=== PATIENT | male | born 1935 | race Caucasian/White ===

== ENCOUNTER 2017-01-25 15:31 | Observation (INO) | payer MEDICARE, BC ==
[2017-01-25] MEDS ORDERED: Ondansetron 4 MG/2 ML SDV IVPUSH PRN (17:29)
[2017-01-25] MEDS ORDERED: Furosemide 40 MG/4 ML VIAL IV SCH (18:00)
[2017-01-25] MEDS ORDERED: Nitroglycerin 0.4 MG Tab.SL SL PRN (18:00)
--- NOTE | 2017-01-25 18:10 | PCM.HP ---
H&P History of Present Illness - General Date of Service: 01/25/17 Admit Problem/Dx: Admission Diagnosis/Problem Admission Diagnosis/Problem Anemia of chronic renal failure Source of Information: Patient History Limitations: Reports: No Limitations - History of Present Illness Initial Comments - Free Text/Narative: Patient seen in clinic with generalized weakness states has been weak for the last month has been seen in [facility] clinic stable today seen in our clinic noticed chronic renal failure acute anemia probably secondary to chronic renal failure generalized weakness will admit for transfusion and evaluation Onset of Symptoms: Reports: Gradual Duration of Symptoms: Reports: Chronic, Getting Worse Location: Reports: Generalized Severity: Moderate Improves with: Reports: None Worsens with: Reports: None Context: Reports: Sick Contact Associated Symptoms: Reports: Chest Pain, Fever/Chills, Nausea/Vomiting - Related Data Allergies/Adverse Reactions: Allergies Allergy/AdvReac Type Severity Reaction Status Date / Time No Known Allergies Allergy Verified 06/09/15 17:53 Home Medications: Home Meds Allopurinol [Zyloprim] 200 mg PO DAILY 04/25/15 [History] Aspirin [Halfprin] 81 mg PO DAILY 04/25/15 [History] Folic Acid 1 mg PO DAILY 04/25/15 [History] Torsemide 20 mg PO DAILY 04/25/15 [History] Warfarin Sodium [Jantoven] 5 mg PO DAILY 04/25/15 [History] Levothyroxine 75 mcg PO ACBREAKFAST #30 tablet 06/11/15 [Rx] Insulin Detemir [Levemir] 50 unit SUBCUT Q12HR 10/16/15 [History] Cholecalciferol (Vitamin D3) [Vitamin D3] 2,000 unit PO DAILY 01/25/17 [History] Insulin Aspart [Novolog Flexpen] 12 units SUBCUT BID 01/25/17 [History] Metoprolol Succinate [Toprol XL] 100 mg PO DAILY 01/25/17 [History] Nitroglycerin [Nitrostat] 0.4 mg SL ASDIRECTED 01/25/17 [History] Ticagrelor [Brilinta] 60 mg PO BID 01/25/17 [History] Past Medical History - Past Health History Medical/Surgical History: Denies Medical/Surgical History (Hypothyroidism insulin-dependent diabetes) HEENT History: Reports: Hard of Hearing Cardiovascular History: Reports: Afib Respiratory History: Reports: None Gastrointestinal History: Reports: None Musculoskeletal History: Reports: Back Pain, Chronic Other Musculoskeletal History: Hx of broken collar bone Neurological History: Reports: None Psychiatric History: Reports: None Endocrine/Metabolic History: Reports: Diabetes, Type II, Hypothyroidism, IDDM Hematologic History: Reports: Anticoagulation Therapy Immunologic History: Reports: None Dermatologic History: Reports: None - Infectious Disease History Infectious Disease History: Reports: None Social & Family History - Tobacco Use Smoking Status *Q: Former Smoker Years of Tobacco use: 10 Used Tobacco, but Quit: Yes Month Tobacco Last Used: 2000 Second Hand Smoke Exposure: No - Alcohol Use Days Per Week of Alcohol Use: 1 Number of Drinks Per Day: 1 Total Drinks Per Week: 1 - Recreational Drug Use Recreational Drug Use: No Drug Use in Last 12 Months: No - Living Situation & Occupation Living situation: Reports: , with Family Occupation: Retired H&P Review of Systems - Review of Systems: Review Of Systems: See Below General: Reports: Chills, Weakness, Fatigue HEENT: Reports: Other (Dried ice) Pulmonary: Reports: Shortness of Breath, Wheezing, Cough Cardiovascular: Reports: Chest Pain Gastrointestinal: Reports: No Symptoms Genitourinary: Reports: No Symptoms Musculoskeletal: Reports: No Symptoms Skin: Reports: No Symptoms Neurological: Reports: No Symptoms Hematologic/Lymphatic: Reports: Anemia Exam - Exam Exam: See Below - Vital Signs Weight: 207 lb 12.8 oz - Exam General: Alert, Oriented, Cooperative HEENT: EACs Clear, EOMI, Mucosa Moist & [place], Pupils Equal, Pupils Reactive, TMs Clear, Glasses, PERRLA Neck: Supple, Trachea Midline Lungs: Clear to Auscultation Cardiovascular: Regular Rate, Regular Rhythm Abdomen: Normal Bowel Sounds, Soft, Hernia, Mass, Other (Ventral hernia) (Male) Exam: Deferred Rectal (Males) Exam: Deferred Back Exam: Normal Inspection, Full Range of Motion, NT Extremities: Edema Skin: Warm, Dry, Intact Neurological: Cranial Nerves Intact, Reflexes Equal Bilateral Psychiatric: Alert, Normal Affect, Normal Mood - Patient Data Lab Results Last 24 hrs: Laboratory Results - last 24 hr 01/25/17 01/25/17 01/25/17 Range/Units 16:40 16:40 16:40 WBC 8.8 (4.0-10.2) K/uL RBC 2.89 L (4.33-5.41) M/uL Hgb 7.3 L* D (13.1-16.8) g/dL Hct 23.6 L* (39.0-49.0) % MCV 81.7 L D (84.0-98.0) fL MCH 25.3 L (28.2-33.3) pg MCHC 30.9 L (31.7-36.0) g/dL RDW 15.7 H (11.2-14.1) % Plt Count 166 (150-350) K/uL Neut % (Auto) 70.3 (45.0-80.0) % Lymph % (Auto) 12.2 (10.0-50.0) % [place] % (Auto) 10.3 (2.0-14.0) % Eos % (Auto) 6.5 H (0.0-5.0) % Baso % (Auto) 0.7 (0.0-2.0) % Neut # (Auto) 6.21 (1.40-7.00) K/uL Lymph # (Auto) 1.08 (0.50-3.50) K/uL [place] # (Auto) 0.91 (0.00-1.00) K/uL Eos # (Auto) 0.57 H (0.00-0.50) K/uL Baso # (Auto) 0.06 (0.00-0.20) K/uL Hemoglobin A1c 10.7 H (4.3-5.7) % Iron (50-175) ug/dL TIBC (250-450) ug/dL % Saturation Ferritin (8-388) ng/mL Vitamin B12 669 (193-986) pg/mL Folate 24.2 (8.6-58.9) ng/mL 01/25/17 Range/Units 16:40 WBC (4.0-10.2) K/uL RBC (4.33-5.41) M/uL Hgb (13.1-16.8) g/dL Hct (39.0-49.0) % MCV (84.0-98.0) fL MCH (28.2-33.3) pg MCHC (31.7-36.0) g/dL RDW (11.2-14.1) % Plt Count (150-350) K/uL Neut % (Auto) (45.0-80.0) % Lymph % (Auto) (10.0-50.0) % [place] % (Auto) (2.0-14.0) % Eos % (Auto) (0.0-5.0) % Baso % (Auto) (0.0-2.0) % Neut # (Auto) (1.40-7.00) K/uL Lymph # (Auto) (0.50-3.50) K/uL [place] # (Auto) (0.00-1.00) K/uL Eos # (Auto) (0.00-0.50) K/uL Baso # (Auto) (0.00-0.20) K/uL Hemoglobin A1c (4.3-5.7) % Iron 26 L (50-175) ug/dL TIBC 329 (250-450) ug/dL % Saturation 7.13636 Ferritin 40 (8-388) ng/mL Vitamin B12 (193-986) pg/mL Folate (8.6-58.9) ng/mL Result Diagrams: 01/25/17 16:40 *Q Meaningful Use (ADM) - VTE *Q VTE Criteria *Q: VTE Anticoagulation Contraindications: Medical/procedure contrai - Stroke *Q Stroke Criteria *Q: - AMI *Q AMI Criteria *Q: - Problem List (1) Chronic renal disease, stage 4, severely decreased glomerular filtration rate (GFR) between 15-29 mL/min/1.73 square meter SNOMED Code(s): 144282938 ICD Code: N18.4 - CHRONIC KIDNEY DISEASE, STAGE 4 (SEVERE) Status: Acute Priority: High Current Visit: Yes Problem List Initiated/Reviewed/Updated: Yes Orders Last 24hrs: Active Orders 24 hr Category Date Time Status Patient Status [ADT] Routine ADT 01/25/17 17:29 Ordered Ambulate [RC] ASDIRECTED Care 01/25/17 17:29 Ordered Antiembolic Devices [RC] PER UNIT ROUTINE Care 01/25/17 17:46 Ordered Bedrest Bathroom Privileges [RC] ASDIRECTED Care 01/25/17 17:29 Ordered Blood Glucose Check, Bedside [RC] QIDACANDBED Care 01/25/17 17:29 Ordered EKG Documentation Completion [RC] ASDIRECTED Care 01/25/17 17:51 Ordered Intake and Output [RC] QSHIFT Care 01/25/17 17:40 Ordered May Shower [RC] ASDIRECTED Care 01/25/17 17:29 Ordered Oxygen Therapy [RC] PRN Care 01/25/17 17:29 Ordered Up With Assistance [RC] ASDIRECTED Care 01/25/17 17:29 Ordered Up to Chair [RC] ASDIRECTED Care 01/25/17 17:29 Ordered VTE/DVT Education [RC] PER UNIT ROUTINE Care 01/25/17 17:29 Ordered Vital Signs [RC] Q4H Care 01/25/17 17:29 Ordered PT Evaluation and Treatment [CONS] Routine Cons 01/25/17 17:29 Ordered [employer] Diet [DIET] Diet 01/25/17 Dinner Ordered Chest 2V [CR] Routine Exams 01/25/17 Taken BASIC METABOLIC PANEL,BMP [CHEM] AM Lab 01/26/17 05:11 Ordered CBC WITH AUTO DIFF [HEME] AM Lab 01/26/17 05:11 Ordered CBC WITH AUTO DIFF [HEME] Routine Lab 01/25/17 17:53 Ordered RED BLOOD CELLS LP [BBK] Routine Lab 01/25/17 17:52 Ordered TSH ULTRASENSITIVE [CHEM] Routine Lab 01/26/17 05:11 Ordered URIC ACID [CHEM] Routine Lab 01/26/17 05:11 Ordered Allopurinol [Zyloprim] Med 01/26/17 08:00 Ordered 200 mg PO DAILY Aspirin [Halfprin] Med 01/26/17 08:00 Ordered 81 mg PO DAILY Cholecalciferol (Vitamin D3) [Vitamin D3] Med 01/26/17 08:00 Ordered 2,000 unit PO DAILY Folic Acid Med 01/26/17 08:00 Ordered 1 mg PO DAILY Furosemide [Lasix] Med 01/25/17 18:00 Ordered 40 mg IV ASDIRECTED Insulin Aspart [NovoLOG] Med 01/25/17 18:00 Ordered 12 unit SUBCUT BID Insulin Detemir [Levemir] Med 01/25/17 20:00 Ordered 50 unit SUBCUT Q12HR Levothyroxine Med 01/26/17 07:30 Ordered 75 mcg PO ACBREAKFAST Metoprolol Succinate [Toprol XL] Med 01/26/17 08:00 Ordered 100 mg PO DAILY Nitroglycerin [Nitrostat] Med 01/25/17 18:00 Ordered 0.4 mg SL ASDIRECTED Ondansetron [Zofran] Med 01/25/17 17:29 Ordered 4 mg IVPUSH Q4H PRN Pantoprazole [ProTONIX IV] Med 01/25/17 17:30 Ordered 40 mg IV DAILY Sodium Chloride 0.9% [Normal Saline] 250 ml Med 01/25/17 18:00 Ordered IV ASDIRECTED Sodium Chloride 0.9% [Saline Flush] Med 01/25/17 17:29 Ordered 10 ml FLUSH ASDIRECTED PRN Torsemide [Torsemide] Med 01/26/17 08:00 Ordered 20 mg PO DAILY Anticoagulation Contraindications VTE [AST] Per Unit Oth 01/25/17 17:29 Ordered Routine Antiembolic Hose [OM.PC] Per Unit Routine Oth 01/25/17 17:41 Ordered Saline Lock Insert [OM.PC] Routine Oth 01/25/17 17:29 Ordered Transfuse PRBC [Transfuse Red Blood Cells] [COMM] Oth 01/25/17 17:53 Ordered Routine Resuscitation Status Routine Resus Stat 01/25/17 17:29 Ordered EKG 12 Lead [EK] Routine Ther 01/25/17 17:29 Ordered Assessment/Plan Comment:: Patient will be admitted transfused and reevaluated in the morning
[2017-01-25] MEDS: Pantoprazole 40 MG Vial IV SCH (19:50)
[2017-01-25] MEDS: Sodium Chloride 0.9% 250 ML IV SCH (19:51)
[2017-01-25] MEDS: Insulin Aspart 100 Units/ML 3 ML Pen SUBCUT SCH (19:52)
[2017-01-25] MEDS: Insulin Detemir 100 Units/ML 3 ML Pen SUBCUT SCH (20:53)
[2017-01-26] MEDS: Allopurinol 100 MG Tab PO SCH (08:22)
[2017-01-26] MEDS: Aspirin 81 MG Tab.EC PO SCH (08:23)
[2017-01-26] MEDS: Cholecalciferol (Vitamin D3) 1,000 Unit Tab PO SCH (08:24)
[2017-01-26] MEDS: Levothyroxine 75 MCG Tab PO SCH (08:24)
[2017-01-26] MEDS: Folic Acid 1 MG Tab PO SCH (08:25)
[2017-01-26] MEDS: Pantoprazole 40 MG Vial IV SCH (08:25)
[2017-01-26] MEDS: Insulin Aspart 100 Units/ML 3 ML Pen SUBCUT SCH ×2 (08:32→18:06)
[2017-01-26] MEDS: Sodium Chloride 0.9% 10 ML Syringe FLUSH PRN ×2 (08:32→14:48)
[2017-01-26] MEDS: Insulin Detemir 100 Units/ML 3 ML Pen SUBCUT SCH ×2 (08:34→19:48)
[2017-01-26] MEDS: Metoprolol Succinate 50 MG Tab.ER PO SCH (09:00)
--- NOTE | 2017-01-26 09:54 | PCM.PN ---
- General Info Date of Service: 01/26/17 Admission Dx/Problem (Free Text): Anemia Chronic Renal Failure Generalized Weakness Diabetes Type 2 Functional Status: Reports: tolerating diet, ambulating, new symptoms ( generalized weakness) - Review of Systems General: Reports: Weakness, Fatigue HEENT: Reports: no symptoms Pulmonary: Reports: shortness of breath Cardiovascular: Reports: No Symptoms Gastrointestinal: Reports: No symptoms Genitourinary: Reports: no symptoms Musculoskeletal: Reports: no symptoms Skin: Reports: no symptoms Neurological: Reports: No Symptoms Psychiatric: Reports: no symptoms - Patient Data Vitals - most recent: Last Vital Signs Temp 97.7 F 01/26/17 07:05 Pulse 66 01/26/17 07:05 Resp 22 H 01/26/17 07:05 BP 109/56 L 01/26/17 08:26 Pulse Ox 100 01/26/17 07:05 Weight - most recent: 225 lb 8 oz I&O - last 24 hours: Intake & Output 01/25/17 01/26/17 01/26/17 22:59 06:59 14:59 Intake Total 462 1002 1140 Balance 462 1002 1140 Lab Results last 24 hrs: Laboratory Results - last 24 hr 01/25/17 01/25/17 01/25/17 Range/Units 16:40 16:40 16:40 WBC 8.8 (4.0-10.2) K/uL RBC 2.89 L (4.33-5.41) M/uL Hgb 7.3 L* D (13.1-16.8) g/dL Hct 23.6 L* (39.0-49.0) % MCV 81.7 L D (84.0-98.0) fL MCH 25.3 L (28.2-33.3) pg MCHC 30.9 L (31.7-36.0) g/dL RDW 15.7 H (11.2-14.1) % Plt Count 166 (150-350) K/uL Neut % (Auto) 70.3 (45.0-80.0) % Lymph % (Auto) 12.2 (10.0-50.0) % [place] % (Auto) 10.3 (2.0-14.0) % Eos % (Auto) 6.5 H (0.0-5.0) % Baso % (Auto) 0.7 (0.0-2.0) % Neut # (Auto) 6.21 (1.40-7.00) K/uL Lymph # (Auto) 1.08 (0.50-3.50) K/uL [place] # (Auto) 0.91 (0.00-1.00) K/uL Eos # (Auto) 0.57 H (0.00-0.50) K/uL Baso # (Auto) 0.06 (0.00-0.20) K/uL Sodium (136-145) mmol/L Potassium (3.5-5.1) mmol/L Chloride (98-107) mmol/L Carbon Dioxide (21.0-32.0) mmol/L BUN (7-18) mg/dL Creatinine (0.51-1.17) mg/dL Est Cr Clr Drug Dosing mL/min Estimated GFR (MDRD) mL/min Glucose (74-106) mg/dL POC Glucose (65-110) mg/dl Hemoglobin A1c 10.7 H (4.3-5.7) % Uric Acid (2.6-7.2) mg/dL Calcium (8.5-10.1) mg/dL Iron (50-175) ug/dL TIBC (250-450) ug/dL % Saturation Ferritin (8-388) ng/mL Vitamin B12 669 (193-986) pg/mL Folate 24.2 (8.6-58.9) ng/mL TSH, Ultra Sensitive (0.358-3.740) mIU/mL Blood Type Gel Antibody Screen Crossmatch 01/25/17 01/25/17 01/25/17 Range/Units 16:40 16:40 20:54 WBC (4.0-10.2) K/uL RBC (4.33-5.41) M/uL Hgb (13.1-16.8) g/dL Hct (39.0-49.0) % MCV (84.0-98.0) fL MCH (28.2-33.3) pg MCHC (31.7-36.0) g/dL RDW (11.2-14.1) % Plt Count (150-350) K/uL Neut % (Auto) (45.0-80.0) % Lymph % (Auto) (10.0-50.0) % [place] % (Auto) (2.0-14.0) % Eos % (Auto) (0.0-5.0) % Baso % (Auto) (0.0-2.0) % Neut # (Auto) (1.40-7.00) K/uL Lymph # (Auto) (0.50-3.50) K/uL [place] # (Auto) (0.00-1.00) K/uL Eos # (Auto) (0.00-0.50) K/uL Baso # (Auto) (0.00-0.20) K/uL Sodium (136-145) mmol/L Potassium (3.5-5.1) mmol/L Chloride (98-107) mmol/L Carbon Dioxide (21.0-32.0) mmol/L BUN (7-18) mg/dL Creatinine (0.51-1.17) mg/dL Est Cr Clr Drug Dosing mL/min Estimated GFR (MDRD) mL/min Glucose (74-106) mg/dL POC Glucose 247 H (65-110) mg/dl Hemoglobin A1c (4.3-5.7) % Uric Acid (2.6-7.2) mg/dL Calcium (8.5-10.1) mg/dL Iron 26 L (50-175) ug/dL TIBC 329 (250-450) ug/dL % Saturation 7.75483 Ferritin 40 (8-388) ng/mL Vitamin B12 (193-986) pg/mL Folate (8.6-58.9) ng/mL TSH, Ultra Sensitive (0.358-3.740) mIU/mL Blood Type A POSITIVE Gel Antibody Screen Negative Crossmatch See Detail 01/26/17 01/26/17 01/26/17 Range/Units 02:20 07:05 07:05 WBC 8.1 7.9 (4.0-10.2) K/uL RBC 3.30 L 3.23 L (4.33-5.41) M/uL Hgb 8.7 L 8.6 L (13.1-16.8) g/dL Hct 27.1 L 26.5 L (39.0-49.0) % MCV 82.1 L 82.0 L (84.0-98.0) fL MCH 26.4 L 26.6 L (28.2-33.3) pg MCHC 32.1 32.5 (31.7-36.0) g/dL RDW 15.7 H 15.6 H (11.2-14.1) % Plt Count 149 L 141 L (150-350) K/uL Neut % (Auto) 71.6 69.5 (45.0-80.0) % Lymph % (Auto) 12.1 12.9 (10.0-50.0) % [place] % (Auto) 9.7 11.5 (2.0-14.0) % Eos % (Auto) 5.9 H 5.6 H (0.0-5.0) % Baso % (Auto) 0.7 0.5 (0.0-2.0) % Neut # (Auto) 5.82 5.48 (1.40-7.00) K/uL Lymph # (Auto) 0.98 1.02 (0.50-3.50) K/uL [place] # (Auto) 0.79 0.91 (0.00-1.00) K/uL Eos # (Auto) 0.48 0.44 (0.00-0.50) K/uL Baso # (Auto) 0.06 0.04 (0.00-0.20) K/uL Sodium 138 (136-145) mmol/L Potassium 4.2 (3.5-5.1) mmol/L Chloride 102 (98-107) mmol/L Carbon Dioxide 24.9 (21.0-32.0) mmol/L BUN 91 H* (7-18) mg/dL Creatinine 2.52 H (0.51-1.17) mg/dL Est Cr Clr Drug Dosing 26.86 mL/min Estimated GFR (MDRD) 25 mL/min Glucose 178 H (74-106) mg/dL POC Glucose (65-110) mg/dl Hemoglobin A1c (4.3-5.7) % Uric Acid 10.4 H (2.6-7.2) mg/dL Calcium 8.4 L (8.5-10.1) mg/dL Iron (50-175) ug/dL TIBC (250-450) ug/dL % Saturation Ferritin (8-388) ng/mL Vitamin B12 (193-986) pg/mL Folate (8.6-58.9) ng/mL TSH, Ultra Sensitive 6.719 H (0.358-3.740) mIU/mL Blood Type Gel Antibody Screen Crossmatch 01/26/17 Range/Units 07:25 WBC (4.0-10.2) K/uL RBC (4.33-5.41) M/uL Hgb (13.1-16.8) g/dL Hct (39.0-49.0) % MCV (84.0-98.0) fL MCH (28.2-33.3) pg MCHC (31.7-36.0) g/dL RDW (11.2-14.1) % Plt Count (150-350) K/uL Neut % (Auto) (45.0-80.0) % Lymph % (Auto) (10.0-50.0) % [place] % (Auto) (2.0-14.0) % Eos % (Auto) (0.0-5.0) % Baso % (Auto) (0.0-2.0) % Neut # (Auto) (1.40-7.00) K/uL Lymph # (Auto) (0.50-3.50) K/uL [place] # (Auto) (0.00-1.00) K/uL Eos # (Auto) (0.00-0.50) K/uL Baso # (Auto) (0.00-0.20) K/uL Sodium (136-145) mmol/L Potassium (3.5-5.1) mmol/L Chloride (98-107) mmol/L Carbon Dioxide (21.0-32.0) mmol/L BUN (7-18) mg/dL Creatinine (0.51-1.17) mg/dL Est Cr Clr Drug Dosing mL/min Estimated GFR (MDRD) mL/min Glucose (74-106) mg/dL POC Glucose 179 H (65-110) mg/dl Hemoglobin A1c (4.3-5.7) % Uric Acid (2.6-7.2) mg/dL Calcium (8.5-10.1) mg/dL Iron (50-175) ug/dL TIBC (250-450) ug/dL % Saturation Ferritin (8-388) ng/mL Vitamin B12 (193-986) pg/mL Folate (8.6-58.9) ng/mL TSH, Ultra Sensitive (0.358-3.740) mIU/mL Blood Type Gel Antibody Screen Crossmatch Med Orders - Current: Current Medications Allopurinol (Zyloprim) 200 mg PO DAILY [facility] Last Admin: 01/26/17 08:22 Dose: 200 mg Aspirin (Halfprin) 81 mg PO DAILY [facility] Last Admin: 01/26/17 08:23 Dose: 81 mg Cholecalciferol (Vitamin D3) 2,000 units PO DAILY [facility] Last Admin: 01/26/17 08:24 Dose: 2,000 units Folic Acid (Folic Acid) 1 mg PO DAILY [facility] Last Admin: 01/26/17 08:25 Dose: 1 mg Furosemide (Lasix) 40 mg IV ASDIRECTED [facility] Last Admin: 01/25/17 22:21 Dose: 40 mg Sodium Chloride (Normal Saline) 250 mls @ 75 mls/hr IV ASDIRECTED [facility] Last Admin: 01/25/17 19:51 Dose: 75 mls/hr Insulin Aspart (Novolog) 12 unit SUBCUT BID [facility] Last Admin: 01/26/17 08:32 Dose: 12 units Insulin Detemir (Levemir) 50 unit SUBCUT Q12HR [facility] Last Admin: 01/26/17 08:34 Dose: 50 units Levothyroxine Sodium (Levothyroxine) 75 mcg PO ACBREAKFAST [facility] Last Admin: 01/26/17 08:24 Dose: 75 mcg Metoprolol Succinate (Toprol Xl) 100 mg PO DAILY [facility] Nitroglycerin (Nitrostat) 0.4 mg SL ASDIRECTED PRN PRN Reason: CHEST PAIN Ondansetron HCl (Zofran) 4 mg IVPUSH Q4H PRN PRN Reason: Nausea/Vomiting Pantoprazole Sodium (Protonix Iv) 40 mg IV DAILY [facility] Last Admin: 01/26/17 08:25 Dose: 40 mg Sodium Chloride (Saline Flush) 10 ml FLUSH ASDIRECTED PRN PRN Reason: Keep Vein Open Last Admin: 01/26/17 08:32 Dose: 10 ml Torsemide (Demadex) 20 mg PO DAILY [facility] Last Admin: 01/26/17 08:23 Dose: 20 mg - Exam General: alert, oriented, cooperative, no acute distress HEENT: Pupils equal, Pupils reactive, EOMI, Mucous membr. moist/pink Neck: supple Lungs: Clear to auscultation, Normal respiratory effort Cardiovascular: Regular Rate, Regular Rhythm, Murmurs (2/6 prado systolic ) Abdomen: bowel sounds present, soft, distension (Male) Exam: Deferred Back Exam: Normal Inspection Extremities: edema Skin: warm, dry Neurological: no new focal deficit Psy/Mental Status: alert, normal affect, normal mood - Problem List & Annotations (1) Anemia SNOMED Code(s): 831304197 Code(s): D64.9 - ANEMIA, UNSPECIFIED Status: Chronic Priority: Medium Current Visit: No Qualifiers: Anemia type: due to chronic kidney disease Chronic kidney disease stage: stage 4 (severe) Qualified Code(s): N18.4 - Chronic kidney disease, stage 4 ( severe); D63.1 - Anemia in chronic kidney disease (2) Chronic renal disease, stage 4, severely decreased glomerular filtration rate (GFR) between 15-29 mL/min/1.73 square meter SNOMED Code(s): 585638338 Code(s): N18.4 - CHRONIC KIDNEY DISEASE, STAGE 4 (SEVERE) Status: Acute Priority: High Current Visit: Yes (3) Generalized weakness SNOMED Code(s): 26869026 Code(s): R53.1 - WEAKNESS Status: Acute Current Visit: Yes (4) Hyperglycemia due to type 2 diabetes mellitus SNOMED Code(s): 835627829028477, 027862471979542 Code(s): E11.65 - TYPE 2 DIABETES MELLITUS WITH HYPERGLYCEMIA Status: Acute Priority: High Current Visit: No Qualifiers: Diabetes mellitus watermelon inspector insulin use: with care home use Qualified Code( s): E11.65 - Type 2 diabetes mellitus with hyperglycemia; Z79.4 - intermediate ( current) use of insulin Annotation/Comment:: Poor compliance with diabetic diet. Persistent hyperglycemia, now improved. - Problem List Review Problem List Initiated/Reviewed/Updated: Yes - My Orders Last 24 Hours: My Active Orders 01/25/17 17:29 Patient Status [ADT] Routine Ambulate [RC] ASDIRECTED Bedrest Bathroom Privileges [RC] ASDIRECTED Blood Glucose Check, Bedside [RC] QIDACANDBED May Shower [RC] ASDIRECTED Oxygen Therapy [RC] PRN Up With Assistance [RC] ASDIRECTED Up to Chair [RC] ASDIRECTED VTE/DVT Education [RC] PER UNIT ROUTINE Vital Signs [RC] Q4HR PT Evaluation and Treatment [CONS] Routine Ondansetron [Zofran] 4 mg IVPUSH Q4H PRN Sodium Chloride 0.9% [Saline Flush] 10 ml FLUSH ASDIRECTED PRN Anticoagulation Contraindications VTE [AST] Per Unit Routine Saline Lock Insert [OM.PC] Routine Resuscitation Status Routine 01/25/17 17:30 Pantoprazole [ProTONIX IV] 40 mg IV DAILY 01/25/17 17:40 Intake and Output [RC] QSHIFT 01/25/17 17:41 Antiembolic Hose [OM.PC] Per Unit Routine 01/25/17 17:46 Antiembolic Devices [RC] 08,20 01/25/17 17:51 EKG Documentation Completion [RC] ASDIRECTED 01/25/17 17:53 Transfuse PRBC [Transfuse Red Blood Cells] [COMM] Routine 01/25/17 18:00 Furosemide [Lasix] 40 mg IV ASDIRECTED Insulin Aspart [NovoLOG] 12 unit SUBCUT BID Nitroglycerin [Nitrostat] 0.4 mg SL ASDIRECTED PRN Sodium Chloride 0.9% [Normal Saline] 250 ml IV ASDIRECTED 01/25/17 20:00 Insulin Detemir [Levemir] 50 unit SUBCUT Q12HR 01/25/17 Dinner [employer] Diet [DIET] 01/26/17 07:30 Levothyroxine 75 mcg PO ACBREAKFAST 01/26/17 08:00 Allopurinol [Zyloprim] 200 mg PO DAILY Aspirin [Halfprin] 81 mg PO DAILY Cholecalciferol (Vitamin D3) [Vitamin D3] 2,000 units PO DAILY Folic Acid 1 mg PO DAILY Metoprolol Succinate [Toprol XL] 100 mg PO DAILY Torsemide [Demadex] 20 mg PO DAILY - Plan Plan:: Patient admitted to observation yesterday. He was transfused with 2 units. Doing better. Still reporting weakness. HGB 8.6. Patient is symptomatic. Will transfuse 2 more units and DC home. Patient will be seen in clinic for follow up evaluation post hospitalization. Patient will receive diabetic teaching and glucose check monitoring teaching.
[2017-01-26] MEDS ORDERED: Furosemide 40 MG/4 ML VIAL IV ONE (09:59)
[2017-01-26] MEDS: Sodium Chloride 0.9% 250 ML IV SCH (11:50)
--- NOTE | 2017-01-26 15:04 | PCM.SN ---
- Free Text/Narrative Note: Please note JACKSON questions were originally entered in error related to double negative of questions. On admission, I did not anticipate hospital leval of care for over 2 midnights. Insurance suggests OBS care. Patient does not meet criteria for inpatient admission. Responses were corrected on status order after review with quality/corporate risk analyst.
[2017-01-27 07:04] VITALS: BP 110/43
--- NOTE | 2017-01-27 07:29 | PCM.DCSUM1 ---
Discharge Summary - Hospital Course Free Text/Narrative:: Patient was admitted with severe anemia probably secondary to chronic renal failure. Patient transfused x4 units over 2 days. HGB improved to 9.9 yesterday. Patient feels stronger and ready to go. - Discharge Data Discharge Date: 01/27/17 Discharge Disposition: Home, Self-Care 01 Condition: Good - Discharge Diagnosis/Problem(s) (1) Anemia SNOMED Code(s): 535989379 ICD Code: D64.9 - ANEMIA, UNSPECIFIED Status: Chronic Priority: Medium Current Visit: No Qualifiers: Anemia type: due to chronic kidney disease Chronic kidney disease stage: stage 4 (severe) Qualified Code(s): N18.4 - Chronic kidney disease, stage 4 ( severe); D63.1 - Anemia in chronic kidney disease (2) Chronic renal disease, stage 4, severely decreased glomerular filtration rate (GFR) between 15-29 mL/min/1.73 square meter SNOMED Code(s): 739503750 ICD Code: N18.4 - CHRONIC KIDNEY DISEASE, STAGE 4 (SEVERE) Status: Acute Priority: High Current Visit: Yes (3) Generalized weakness SNOMED Code(s): 38128131 ICD Code: R53.1 - WEAKNESS Status: Acute Current Visit: Yes (4) Hyperglycemia due to type 2 diabetes mellitus SNOMED Code(s): 565634778416036, 532142573194329 ICD Code: E11.65 - TYPE 2 DIABETES MELLITUS WITH HYPERGLYCEMIA Status: Acute Priority: High Current Visit: No Problem Details: Poor compliance with diabetic diet. Persistent hyperglycemia, now improved. 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 Will need HGB re-checked. Consider re-education on diabetic diet, tighter control of sugars. Consider nephrology consult. Also, echocardiogram for 3/6 prado systolic murmur at aorta. - Patient Instructions Diet: Diabetic Diet Activity: As Tolerated Showering/Bathing: May Shower Notify Provider of: Fever (weakness), Increased Pain, Swelling and Redness, Drainage, Nausea and/or Vomiting - Discharge Plan Prescriptions/Med Rec: Omeprazole 20 mg PO BID #60 tablet. Home Medications: Home Meds Allopurinol [Zyloprim] 200 mg PO DAILY 04/25/15 [History] Aspirin [Halfprin] 81 mg PO DAILY 04/25/15 [History] Folic Acid 1 mg PO DAILY 04/25/15 [History] Torsemide 20 mg PO DAILY 04/25/15 [History] Warfarin Sodium [Jantoven] 5 mg PO DAILY 04/25/15 [History] Levothyroxine 75 mcg PO ACBREAKFAST #30 tablet 06/11/15 [Rx] Insulin Detemir [Levemir] 50 unit SUBCUT Q12HR 10/16/15 [History] Cholecalciferol (Vitamin D3) [Vitamin D3] 2,000 unit PO DAILY 01/25/17 [History] Insulin Aspart [Novolog Flexpen] 12 units SUBCUT BID 01/25/17 [History] Metoprolol Succinate [Toprol XL] 100 mg PO DAILY 01/25/17 [History] Nitroglycerin [Nitrostat] 0.4 mg SL ASDIRECTED 01/25/17 [History] Ticagrelor [Brilinta] 60 mg PO BID 01/25/17 [History] Omeprazole 20 mg PO BID #60 tablet. 01/27/17 [Rx] Patient Handouts: Blood Transfusion , Chronic Kidney Disease, [id number] Referrals: William Haynes PA [Primary Care Provider] - (Follow up in 1 week with PCP. Will need HGB re-checked. Consider re-education on diabetic diet, tighter control of sugars. Consider nephrology consult. Also, echocardiogram for 3/6 prado systolic murmur at aorta. ) - General Info Date of Service: 01/27/17 - Review of Systems General: Reports: Weakness (has improved ), Fatigue HEENT: Reports: no symptoms Pulmonary: Reports: no symptoms Cardiovascular: Reports: No Symptoms Gastrointestinal: Reports: No symptoms Musculoskeletal: Reports: no symptoms Skin: Reports: no symptoms Neurological: Reports: No Symptoms Psychiatric: Reports: no symptoms - Patient Data Vitals - Most Recent: Last Vital Signs Temp 98.1 F 01/27/17 07:04 Pulse 74 01/27/17 07:04 Resp 20 01/27/17 07:04 BP 110/43 L 06/15/17 07:04 Pulse Ox 96 01/27/17 07:04 Weight - Most Recent: 225 lb 7.997 oz I&O - Last 24 hours: Intake & Output 01/26/17 01/27/17 01/27/17 22:59 06:59 14:59 Output Total 1350 400 Balance -1350 -400 Lab Results - Last 24 hrs: Laboratory Results - last 24 hr 01/25/17 01/26/17 01/26/17 Range/Units 16:40 07:05 07:25 WBC (4.0-10.2) K/uL RBC (4.33-5.41) M/uL Hgb (13.1-16.8) g/dL Hct (39.0-49.0) % MCV (84.0-98.0) fL MCH (28.2-33.3) pg MCHC (31.7-36.0) g/dL RDW (11.2-14.1) % Plt Count (150-350) K/uL Neut % (Auto) (45.0-80.0) % Lymph % (Auto) (10.0-50.0) % [place] % (Auto) (2.0-14.0) % Eos % (Auto) (0.0-5.0) % Baso % (Auto) (0.0-2.0) % Neut # (Auto) (1.40-7.00) K/uL Lymph # (Auto) (0.50-3.50) K/uL [place] # (Auto) (0.00-1.00) K/uL Eos # (Auto) (0.00-0.50) K/uL Baso # (Auto) (0.00-0.20) K/uL Sodium 138 (136-145) mmol/L Potassium 4.2 (3.5-5.1) mmol/L Chloride 102 (98-107) mmol/L Carbon Dioxide 24.9 (21.0-32.0) mmol/L BUN 91 H* (7-18) mg/dL Creatinine 2.52 H (0.51-1.17) mg/dL Est Cr Clr Drug Dosing 26.86 mL/min Estimated GFR (MDRD) 25 mL/min Glucose 178 H (74-106) mg/dL POC Glucose 179 H (65-110) mg/dl Uric Acid 10.4 H (2.6-7.2) mg/dL Calcium 8.4 L (8.5-10.1) mg/dL TSH, Ultra Sensitive 6.719 H (0.358-3.740) mIU/mL Blood Type A POSITIVE Gel Antibody Screen Negative Crossmatch See Detail 01/26/17 01/26/17 01/26/17 Range/Units 11:19 11:56 17:39 WBC (4.0-10.2) K/uL RBC (4.33-5.41) M/uL Hgb (13.1-16.8) g/dL Hct (39.0-49.0) % MCV (84.0-98.0) fL MCH (28.2-33.3) pg MCHC (31.7-36.0) g/dL RDW (11.2-14.1) % Plt Count (150-350) K/uL Neut % (Auto) (45.0-80.0) % Lymph % (Auto) (10.0-50.0) % [place] % (Auto) (2.0-14.0) % Eos % (Auto) (0.0-5.0) % Baso % (Auto) (0.0-2.0) % Neut # (Auto) (1.40-7.00) K/uL Lymph # (Auto) (0.50-3.50) K/uL [place] # (Auto) (0.00-1.00) K/uL Eos # (Auto) (0.00-0.50) K/uL Baso # (Auto) (0.00-0.20) K/uL Sodium (136-145) mmol/L Potassium (3.5-5.1) mmol/L Chloride (98-107) mmol/L Carbon Dioxide (21.0-32.0) mmol/L BUN (7-18) mg/dL Creatinine (0.51-1.17) mg/dL Est Cr Clr Drug Dosing mL/min Estimated GFR (MDRD) mL/min Glucose (74-106) mg/dL POC Glucose 156 H 186 H (65-110) mg/dl Uric Acid (2.6-7.2) mg/dL Calcium (8.5-10.1) mg/dL TSH, Ultra Sensitive (0.358-3.740) mIU/mL Blood Type Gel Antibody Screen Crossmatch See Detail 01/26/17 01/26/17 01/27/17 Range/Units 19:40 19:42 07:09 WBC 7.9 (4.0-10.2) K/uL RBC 3.63 L (4.33-5.41) M/uL Hgb 9.9 L (13.1-16.8) g/dL Hct 30.3 L (39.0-49.0) % MCV 83.5 L (84.0-98.0) fL MCH 27.3 L (28.2-33.3) pg MCHC 32.7 (31.7-36.0) g/dL RDW 16.6 H (11.2-14.1) % Plt Count 135 L (150-350) K/uL Neut % (Auto) 68.0 (45.0-80.0) % Lymph % (Auto) 14.1 (10.0-50.0) % [place] % (Auto) 11.7 (2.0-14.0) % Eos % (Auto) 5.7 H (0.0-5.0) % Baso % (Auto) 0.5 (0.0-2.0) % Neut # (Auto) 5.38 (1.40-7.00) K/uL Lymph # (Auto) 1.12 (0.50-3.50) K/uL [place] # (Auto) 0.93 (0.00-1.00) K/uL Eos # (Auto) 0.45 (0.00-0.50) K/uL Baso # (Auto) 0.04 (0.00-0.20) K/uL Sodium (136-145) mmol/L Potassium (3.5-5.1) mmol/L Chloride (98-107) mmol/L Carbon Dioxide (21.0-32.0) mmol/L BUN (7-18) mg/dL Creatinine (0.51-1.17) mg/dL Est Cr Clr Drug Dosing mL/min Estimated GFR (MDRD) mL/min Glucose (74-106) mg/dL POC Glucose 195 H 76 (65-110) mg/dl Uric Acid (2.6-7.2) mg/dL Calcium (8.5-10.1) mg/dL TSH, Ultra Sensitive (0.358-3.740) mIU/mL Blood Type Gel Antibody Screen Crossmatch Med Orders - Current: Current Medications Allopurinol (Zyloprim) 200 mg PO DAILY [facility] Last Admin: 01/26/17 08:22 Dose: 200 mg Aspirin (Halfprin) 81 mg PO DAILY [facility] Last Admin: 01/26/17 08:23 Dose: 81 mg Cholecalciferol (Vitamin D3) 2,000 units PO DAILY [facility] Last Admin: 01/26/17 08:24 Dose: 2,000 units Folic Acid (Folic Acid) 1 mg PO DAILY [facility] Last Admin: 01/26/17 08:25 Dose: 1 mg Furosemide (Lasix) 40 mg IV ASDIRECTED [facility] Last Admin: 01/25/17 22:21 Dose: 40 mg Sodium Chloride (Normal Saline) 250 mls @ 75 mls/hr IV ASDIRECTED [facility] Last Admin: 01/26/17 11:50 Dose: 75 mls/hr Insulin Aspart (Novolog) 12 unit SUBCUT BID [facility] Last Admin: 01/26/17 18:06 Dose: 12 units Insulin Detemir (Levemir) 50 unit SUBCUT Q12HR [facility] Last Admin: 01/26/17 19:48 Dose: 50 units Levothyroxine Sodium (Levothyroxine) 75 mcg PO ACBREAKFAST [facility] Last Admin: 01/26/17 08:24 Dose: 75 mcg Metoprolol Succinate (Toprol Xl) 100 mg PO DAILY [facility] Last Admin: 01/26/17 09:00 Dose: Not Given Nitroglycerin (Nitrostat) 0.4 mg SL ASDIRECTED PRN PRN Reason: CHEST PAIN Ondansetron HCl (Zofran) 4 mg IVPUSH Q4H PRN PRN Reason: Nausea/Vomiting Pantoprazole Sodium (Protonix Iv) 40 mg IV DAILY [facility] Last Admin: 01/26/17 08:25 Dose: 40 mg Sodium Chloride (Saline Flush) 10 ml FLUSH ASDIRECTED PRN PRN Reason: Keep Vein Open Last Admin: 01/26/17 14:48 Dose: 10 ml Torsemide (Demadex) 20 mg PO DAILY [facility] Last Admin: 01/26/17 08:23 Dose: 20 mg Discontinued Medications Furosemide (Lasix) 40 mg IV NOW ONE Stop: 01/26/17 10:00 Last Admin: 01/26/17 14:47 Dose: 40 mg - Exam General: Reports: alert, oriented HEENT: Reports: Pupils equal, Pupils reactive, EOMI, Mucous membr. moist/pink Neck: Reports: supple Lungs: Reports: Clear to auscultation, Normal respiratory effort Cardiovascular: Reports: Murmurs (3/6 prado systolic at aortic node - Consider follow up echocardiogram. ) Abdomen: Reports: bowel sounds present, soft, no tenderness, no distension (Male) Exam: Deferred Rectal (Males) Exam: Deferred Back Exam: Reports: Normal Inspection, Full Range of Motion Extremities: Reports: no edema, normal pulses Skin: Reports: warm, dry, intact Neurological: Reports: no new focal deficit Psy/Mental Status: Reports: alert, normal affect, normal mood *Q Meaningful Use (DIS) - VTE *Q VTE Criteria *Q: VTE Anticoagulation Contraindications: Medical/Procedure Contrai - Stroke *Q Stroke Criteria *Q: - AMI *Q AMI Criteria *Q:
[2017-01-27] MEDS: Metoprolol Succinate 50 MG Tab.ER PO SCH (07:48)
[2017-01-27] MEDS: Pantoprazole 40 MG Vial IV SCH (07:48)
[2017-01-27] MEDS: Allopurinol 100 MG Tab PO SCH (07:48)
[2017-01-27] MEDS: Cholecalciferol (Vitamin D3) 1,000 Unit Tab PO SCH (07:48)
[2017-01-27] MEDS: Aspirin 81 MG Tab.EC PO SCH (07:48)
[2017-01-27] MEDS: Folic Acid 1 MG Tab PO SCH (07:48)
[2017-01-27] MEDS: Insulin Detemir 100 Units/ML 3 ML Pen SUBCUT SCH (07:49)
[2017-01-27] MEDS: Levothyroxine 75 MCG Tab PO SCH (07:49)
[2017-01-27] MEDS: Insulin Aspart 100 Units/ML 3 ML Pen SUBCUT SCH (07:52)
== END 2017-01-27 09:56 | disposition home or self-care (01) ==
LOC: LL.CLIN 15:31 → LL.LAB 15:31 → LL.MS 17:16
PROVIDERS: ADMIT Physical Therapist; ATTEND Family Medicine
DX: D63.1 Anemia in chronic kidney disease (principal); N18.4 Chronic kidney disease, stage 4 (severe); E11.22 Type 2 diabetes mellitus with diabetic chronic kidney disease; E11.65 Type 2 diabetes mellitus with hyperglycemia; J18.8 Other pneumonia, unspecified organism; R09.1 Pleurisy; I25.10 Atherosclerotic heart disease of native coronary artery without angina pectoris; I51.7 Cardiomegaly; I48.91 Unspecified atrial fibrillation; R53.1 Weakness; Z95.0 Presence of cardiac pacemaker; Z79.4 Long term (current) use of insulin; Z79.01 Long term (current) use of anticoagulants; Z79.82 Long term (current) use of aspirin; Z79.899 Other long term (current) drug therapy; Z87.891 Personal history of nicotine dependence
CPT/HCPCS: 36415; 36430; 71020; 80048; 80053; 82607; 82728; 82746; 82962; 83036; 83540; 83550; 84443; 84550; 85025; 86850; 86900; 86901; 86920; 86922; 93005; 96374; 96376; 97116; 97161; A9270; C9113; G0378; G0379; J1815; J1940; J7050; P9016

== ENCOUNTER 2017-02-07 11:03 | Emergency (ER) | payer MEDICARE, BC ==
[2017-02-07] MEDS ORDERED: Famotidine 20 MG/2 ML SDV IVPUSH ONE (11:25)
[2017-02-07] MEDS ORDERED: Pantoprazole 40 MG Vial IVPUSH ONE (11:25)
[2017-02-07] MEDS ORDERED: Sodium Chloride 0.9% 10 ML Syringe FLUSH PRN ×2 (11:25→11:26)
[2017-02-07] MEDS ORDERED: Phytonadione 10 MG in Sodium Chloride 0.9% 50 ML IV ONE (11:35)
--- NOTE | 2017-02-07 11:48 | EDM.PDOC ---
ED HPI GENERAL MEDICAL PROBLEM - General Chief Complaint: General Stated Complaint: tired, pale, dizzy Time Seen by Provider: 02/07/17 11:15 Source of Information: Reports: Patient, Old Records ([facility] chart/EMR), Other (Home health nurse, Jillian Smith) History Limitations: Reports: No Limitations - History of Present Illness INITIAL COMMENTS - FREE TEXT/NARRATIVE: The patient was brought to the emergency room via private automobile by his home health nurse, Jillian Smith RN, for evaluation of pallor, weakness, and fatigue with blood pressure 108/52 and pulse of 48 during her evaluation in the patient's home this morning. The patient is a somewhat poor historian. The patient denies any chest pain/pressure, heart flutter, orthostasis, orthopnea, diaphoresis, paresthesias, recent decreased exercise tolerance, or any other anginal-type symptoms, although his overall activity level is low. He does complain of 3/10 left upper quadrant abdominal pain with moderate progressive gross hematochezia and melena during the last couple of days. He denies any medication noncompliance. Note that the patient was recently hospitalized in this facility from 01/25 through 01/27/17 for anemia, which was related to his renal function at that time. He had a hemoglobin of 7.3 on admission with hemoglobin of 9.9 at time of discharge with patient receiving 4 units of packed red blood cells during that hospitalization. No recent history of other abdominal pain, heartburn, nausea, diarrhea, or any food intolerance, including fatty foods, etc.. The patient also denies any recent fever, wheezing, dyspnea, etc., although he does have an occasional clear productive cough. Onset: Gradual Onset Date: 02/05/17 Duration: Getting Worse Location: Reports: Abdomen Quality: Reports: Ache, Same as Previous Episode Severity: Mild Improves with: Reports: None Worsens with: Reports: None Context: Reports: Other (As above) Associated Symptoms: Reports: Cough, cough w sputum (As above), Weakness. Denies: Confusion, Chest Pain, Diaphoresis, Fever/Chills, Headaches, Loss of Appetite, Malaise, Nausea/Vomiting, Rash, Seizure, Shortness of Breath, Syncope Treatments COLLEGE ASSOCIATE: Reports: Other (see below) (None) Left Upper Abdomen Pain Score (Numeric/FACES): 3 - Related Data Allergies Allergy/AdvReac Type Severity Reaction Status Date / Time No Known Allergies Allergy Verified 06/09/15 17:53 Home Meds: Home Meds Allopurinol [Zyloprim] 200 mg PO DAILY 04/25/15 [History] Aspirin [Halfprin] 81 mg PO DAILY 04/25/15 [History] Folic Acid 1 mg PO DAILY 04/25/15 [History] Torsemide 20 mg PO DAILY 04/25/15 [History] Warfarin Sodium [Jantoven] 5 mg PO DAILY 04/25/15 [History] Levothyroxine 75 mcg PO ACBREAKFAST #30 tablet 06/11/15 [Rx] Insulin Detemir [Levemir] 50 unit SUBCUT Q12HR 10/16/15 [History] Cholecalciferol (Vitamin D3) [Vitamin D3] 2,000 unit PO DAILY 01/25/17 [History] Insulin Aspart [Novolog Flexpen] 12 units SUBCUT BID 01/25/17 [History] Metoprolol Succinate [Toprol XL] 100 mg PO DAILY 01/25/17 [History] Nitroglycerin [Nitrostat] 0.4 mg SL ASDIRECTED 01/25/17 [History] Ticagrelor [Brilinta] 90 mg PO BID 01/25/17 [History] Past Medical History HEENT History: Reports: Cataract, Hard of Hearing, Impaired Vision, Other (See Below). Denies: Allergic Rhinitis, Glaucoma, Macular Degeneration Other HEENT History: Bilateral hearing aids, patient wears reading glasses Cardiovascular History: Reports: Afib, Arrhythmia, CAD, Cardiomyopathy, Heart Failure, Heart Murmur, Hypertension, Pacemaker, PTCA, Pulmonary Hypertension, Stents. Denies: Aneurysm, Blood Clots/VTE/DVT, KY, PVD Other Cardiovascular History: Cardiac surgeries as below, cardiomegaly by chest x-ray with history of CHF and atrial fibrillation, no history of KY despite previous PTCA/stent 1, severe cardiomyopathy with ejection fraction of only 25- 30% at time of last echocardiogram on 10/15/16 with additional moderate aortic valve stenosis, mitral valve insufficiency, tricuspid valve insufficiency, and pulmonary hypertension, dyslipidemia Respiratory History: Reports: Bronchitis, Recurrent, COPD, Intubation, Previous , Other (See Below). Denies: Asthma, Pneumothorax, Sleep Apnea, TB Other Respiratory History: COPD by chest x-ray with no current medical therapy Gastrointestinal History: Reports: Diverticulosis, GERD, Hepatitis, Other (See Below). Denies: Celiac Disease, Cholelithiasis, Chronic Constipation, Chronic Diarrhea, Colon Polyp, GI Bleed, Inflammatory Bowel Disease, Irritable Bowel Syndrome, Jaundice, Pancreatitis, PUD Other Gastrointestinal History: Severe diverticulosis by colonoscopy with no history of diverticulitis, history of hepatic cirrhosis and ascites by CT scan with splenomegaly by CT scan Genitourinary History: Reports: BPH, Chronic Renal Insuffiency, Diabetic Nephropathy, Urinary Incontinence, Other (See Below). Denies: Renal Calculus, STD Other Genitourinary History: Stage IV chronic renal insufficiency with bilateral renal atrophy by distant ultrasound Musculoskeletal History: Reports: Arthritis, Back Pain, Chronic, Fracture, Gout , Neck Pain, Chronic, Osteoarthritis, Osteoporosis. 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 Denies: Brain Injury, Cerebral Aneurysms, Concussion, CVA, Headaches, Chronic, Head Trauma, Migraines, MS, Parkinson's, Seizure, TIA Other Neuro History: Chronic familial resting tremor, 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, mild organic brain syndrome Psychiatric History: Reports: Alzheimers Disease, Dementia, Other (See Below). Denies: Abuse, Victim of, Addiction, Anxiety, Depression, Psych Hospitalization(s), PTSD, Suicide Attempt, Suicidal Ideation Other Psychiatric History: Mild organic brain syndrome Endocrine/Metabolic History: Reports: Diabetes, Type II, Hypothyroidism, IDDM, Osteoporosis, Vitamin D Deficiency Hematologic History: Reports: Anticoagulation Therapy, B12 Deficiency, Blood Transfusion(s), Folic Acid, Iron Deficiency, Other (See Below) Other Hematologic History: Blood transfusion of 4 units of packed red blood cells during hospitalization in this facility on 01/25/17 through 01/27/17, chronic Coumadin therapy for atrial fibrillation Immunologic History: Reports: None. Denies: AIDS, HIV, SLE Oncologic (Cancer) History: Reports: None. Denies: Basal Cell Carcinoma, Colon , Hodgkin's Lymphoma, Leukemia, Non-Hodgkin's Lymphoma, Prostate, Squamous Cell Carcinoma Dermatologic History: Reports: None. Denies: Eczema, Psoriasis - Infectious Disease History Infectious Disease History: Reports: Chicken Pox, Mumps. Denies: C-Difficile, Measles, Meningitis, Mononucleosis, MRSA, Pertussis (Whooping Cough), Rheumatic Fever, Rubella, Scarlet Fever, Shingles, VRE - Past Surgical History Head Surgeries/Procedures: Reports: None HEENT Surgical History: Reports: Adenoidectomy, Cataract Surgery, Oral Surgery, Tonsillectomy, Other (See Below). Denies: Eye Surgery, Laser Surgery, LASIK, Myringotomy w Tube(s), Naso-Sinus Surgery Other HEENT Surgeries/Procedures: Multiple teeth extractions with lower partials , tonsillectomy and adenoidectomy at about age 14?, bilateral cataract surgery in about 1999? Cardiovascular Surgical History: Reports: Coronary Artery Stent, Pacer, Percutaneous Transluminal Angioplasty, Other (See Below). Denies: Cardiac Ablation, Varicose, Vascular Surgery Other Cardiovascular Surgeries/Procedures: Pacemaker placement in 2003 secondary to cardiac dysfunction with history of pacemaker generator replacement on 10/28/12 and 10/31/06, PTCA/stent 1 of the proximal LAD on 01/11/17 , unsuccessful previous cardioversion for atrial fibrillation Respiratory Surgical History: Reports: None. Denies: Lung Biopsies, Thoracentesis GI Surgical History: Reports: Appendectomy, Colonoscopy, Hernia, Abdominal, Other (See Below). Denies: Cholecystectomy, EGD, Hernia, Inguinal, Hernia Repair/Other, Polypectomy Other GI Surgeries/Procedures: Appendectomy at about age 15, abdominal ventral hernia repair in about 2003 versus the with patient uncertain,colonoscopy last on 11/30/12 and a paracentesis of abdominal ascites on 12/30/01 Male Surgical History: Reports: None. Denies: Circumcision, TURP- Transurethral Resection of Prostate, Vasectomy Endocrine Surgical History: Reports: None. Denies: Thyroid Biopsy Neurological Surgical History: Reports: Discectomy, Laminectomy, Thoracic Spine , Other (See Below). Denies: C-Spine, Spinal Fusion, Vertebroplasty Other Neurological Surgeries/Procedures: Possible laminectomy in the thoracic spine in his 50s Musculoskeletal Surgical History: Reports: None. Denies: Arthroscopic Procedure , Carpal Tunnel, Ganglion Cyst, Hip Replacement, Joint Replacement, ORIF, Shoulder Surgery Oncologic Surgical History: Reports: None Dermatological Surgical History: Reports: None - Past Imaging History Past Imaging History: Reports: Angiography (Last heart catheterization on with previous evaluation on 04/30/13), Cardiac Echo (Last echocardiogram on 10/15/16 with findings as above with previous echocardiogram on 10/31/12 showing ejection fraction of 50%), CAT Scan (Last CT scan of the abdomen and pelvis on with previous evaluation on 12/17/11, CT of the left hip on 11/08/12), PFT ( 12/05/12 and 07/20/12), Stress Testing (Last Cardiolite stress test on 11/12/16), Ultrasound (Limited abdominal ultrasound on 01/05/14, renal ultrasound on 01/30/13 ), Upper GI X-Ray/Series (11/13/12), Venous Doppler (Right leg on 06/02/16) Social & Family History - Family History Cardiac: Reports: Other (See Below) Other Cardiac Family History: Son with fatal KY at age 42, daughter with fatal KY at age 41, mother with pacemaker, 4 maternal uncles with fatal MIs 2 in their 50s with the other 2 in their 70s, sister with CABG initially in her early 60s with fatal KY/CABG at about age 65, 2 maternal cousins with fatal MIs in their 50s Oncologic: Reports: Other (See Below) Other Oncologic Family History: Maternal cousin with possible lung cancer secondary to tobacco use - Tobacco Use Smoking Status *Q: Former Smoker Years of Tobacco use: 35 Packs/Tins Daily: 0.5 (Mode between ages 17 and 52) Used Tobacco, but Quit: Yes Month Tobacco Last Used: As above Smoking Cessation Information Provided To Patient: No Second Hand Smoke Exposure: No Second Hand Smoke Education Provided: No - Caffeine Use Caffeine Use: Reports: Coffee (One cup per day). Denies: Energy Drinks, Soda, Tea - Alcohol Use Alcohol Use History: Yes Days Per Week of Alcohol Use: 0 (No previous DWIs, problems with alcohol abuse, etc.) Number of Drinks Per Day: 1 (Occasional glass of wine for holidays) Total Drinks Per Week: 0 Alcohol Use in Last Twelve Months: Yes Alcohol Use Frequency: Socially - Recreational Drug Use Recreational Drug Use: No Drug Use in Last 12 Months: No Recreational Drug Type: Denies: Amphetamines (Speed), Cocaine, Heroin, Inhalants (Glues, Solvents, Aerosols), LSD (Acid), Marijuana/Hashish, Methamphetamine, Morphine - Living Situation & Occupation Living situation: Reports: ( at age 21, 5 children), with Family (With and grandson) 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 Denies: Fever, Chills , Malaise, Night Sweats, Diaphoresis, Decreased Appetite, Weight Loss, Weight Gain HEENT: Reports: Hearing Loss (Chronic with hearing aids not present today). Denies: Contact Lenses, Dental Pain, Ear Pain, Glasses (She does not have glasses today), Rhinitis, Sinus Problem, Throat Pain, Vertigo Respiratory: Reports: Cough, Sputum (Mostly clear occasional). Denies: Shortness of Breath, Wheezing, Pleuritic Chest Pain Cardiovascular: Reports: Lightheadedness. Denies: Chest Pain, Blood Pressure Problem, Claudication, Dyspnea on Exertion, Edema, Orthopnea, Palpitations, Syncope Endocrine: Reports: Fatigue GI/Abdominal: Reports: Abdominal Pain, Black Stool, Bloody Stool, Hematochezia, Melena. Denies: Anorexia, Constipation, Diarrhea, Decreased Appetite, Difficulty Swallowing, Distension, Flatus, Hematemesis, Nausea, Stool Incontinence, Vomiting : Reports: No Symptoms. Denies: Discharge, Dysuria, Flank Pain, Frequency, Hematuria, Incontinence, Pain, Urgency, Urinary Retention Musculoskeletal: Reports: No Symptoms. Denies: Neck Pain, Shoulder Pain, Arm Pain, Back Pain, Leg Pain Skin: Reports: Pallor, Bruising (Left upper arm secondary to previous IV infiltration during blood transfusion on 01/25). Denies: Diaphoresis, Wound Neurological: Reports: Dizziness, Tremors (Stable chronic), Difficulty Walking ( Secondary to generalized weakness), Weakness. Denies: Confusion, Headache, Numbness, Paresthesia, Syncope, Tingling Psychiatric: Reports: No Symptoms. 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 No: Hearing Grossly Normal Nose: Normal Inspection, Normal Mucosa, No Blood Throat/Mouth: Normal Inspection, Normal Lips, Normal Gums, Normal Oropharynx, Normal Voice, No Airway Compromise. No: Normal Teeth (Partial lower dentures), Dysphagia, Inflammation, Perioral Cyanosis Head: Atraumatic, Normocephalic. No: Facial Swelling, Facial Tenderness, Sinus Tenderness Neck: Supple, Non-Tender, Full Range of Motion, Carotid Bruit (Bilateral carotid bruits versus transmitted heart sounds). No: Lymphadenopathy (L), Lymphadenopathy (R), Thyromegaly Respiratory/Chest: No Respiratory Distress, Lungs Clear, Normal Breath Sounds, No Accessory Muscle Use, Chest Non-Tender. No: Pleural Rub, Retractions Cardiovascular: Normal Peripheral Pulses, Regular Rate, Rhythm, No Edema, No Gallop, No JVD, No Rub, Systolic Murmur (1/6 MAYA at the aortic and mitral valves ). No: Gallop/S3, Gallop/S4, Friction Rub Peripheral Pulses: 1+: Dorsalis Pedis (L), Dorsalis Pedis (R), 2+: Radial (L), Radial (R) GI/Abdominal: Normal Bowel Sounds, No Organomegaly, No Distention, No Abnormal Bruit, No Mass, Pelvis Stable, Tender (Mild left upper quadrant palpation pain) , Hernia (6 cm in length right medial abdominal wall hernia with additional long vertical abdominal incision secondary to previous abdominal hernia repair) , Other (Obese). No: Guarding, Rigid, Rebound (Male) Exam: Deferred Rectal (Males) Exam: Normal Rectal Tone, Black Stool (With moderate amounts of melena), BPH, Heme + Stool (Strongly positive). No: Fecal Impaction, Mass, Tenderness (No Vikram space tenderness) Back Exam: Normal Inspection, Full Range of Motion. No: CVA Tenderness (L), CVA Tenderness (R), Muscle Spasm Extremities: Normal Inspection, Normal Range of Motion, Non-Tender, No Pedal Edema, Normal Capillary Refill. No: Luci's Sign Neurological: Alert, Oriented, CN II-XII Intact, Normal Cognition, Normal Gait, Normal Reflexes (Negative Babinski's), No Motor/Sensory Deficits Psychiatric: Normal Affect, Normal Mood Skin Exam: Dry, Ecchymosis (Large flexor ecchymosis in the left humeral region secondary to previously infiltrated IV as above), Pallor (Moderate to severe). No: Diaphoretic, Increased Warmth, Lymphangitis, Petechiae, Wound/Incision Lymphatic: No Adenopathy Course - Vital Signs Last Recorded V/S: Last Vital Signs Temp 36.3 C 02/07/17 13:10 Pulse 66 02/07/17 13:10 Resp 20 02/07/17 13:10 BP 96/45 L 02/07/17 13:10 Pulse Ox 100 02/07/17 13:10 Vital Signs - 24 hr 02/07/17 02/07/17 02/07/17 11:04 11:16 11:20 Temperature 36.6 C Temperature [ 36.3 C Oral] Pulse, 92 59 L 60 Peripheral [ Right Pulse Oximetry] Respiratory 18 20 20 Rate Blood Pressure 120/47 L 111/49 L 111/49 L [Left Upper Arm ] O2 Sat by Pulse 100 100 100 Oximetry 02/07/17 02/07/17 02/07/17 11:50 12:10 12:40 Temperature 36.4 C 36.4 C 36.7 C Temperature [ Oral] Pulse, 66 66 61 Peripheral [ Right Pulse Oximetry] Respiratory 20 20 20 Rate Blood Pressure 110/45 L 102/50 L 95/43 L [Left Upper Arm ] O2 Sat by Pulse 100 100 100 Oximetry 02/07/17 13:10 Temperature 36.3 C Temperature [ Oral] Pulse, 66 Peripheral [ Right Pulse Oximetry] Respiratory 20 Rate Blood Pressure 96/45 L [Left Upper Arm ] O2 Sat by Pulse 100 Oximetry - Orders/Labs/Meds Orders: Active Orders 24 hr Category Date Time Status Cardiac Monitoring [RC] . DIRECTED Care 02/07/17 11:25 Active Peripheral IV Care [RC] . DIRECTED Care 02/07/17 11:25 Active Peripheral IV Care [RC] . DIRECTED Care 02/07/17 11:26 Active Abdomen Series w Chest 1V [CR] Stat Exams 02/07/17 11:23 Taken OCCULT BLOOD DIAGNOSTIC [OP] Stat Lab 02/07/17 11:24 Uncollected Sodium Chloride 0.9% [Saline Flush] Med 02/07/17 11:25 Active 10 ml FLUSH ASDIRECTED PRN Sodium Chloride 0.9% [Saline Flush] Med 02/07/17 11:26 Active 10 ml FLUSH ASDIRECTED PRN Obtain Past Medical Record [OM.PC] Urgent Oth 02/07/17 11:24 Active Peripheral IV Insertion Adult [OM.PC] Stat Oth 02/07/17 11:24 Ordered Peripheral IV Insertion Adult [OM.PC] Stat Oth 02/07/17 11:26 Ordered Resuscitation Status Routine Resus Stat 02/07/17 13:47 Ordered Medication Orders Sodium Chloride (Saline Flush) 10 ml FLUSH ASDIRECTED PRN PRN Reason: Keep Vein Open Sodium Chloride (Saline Flush) 10 ml FLUSH ASDIRECTED PRN PRN Reason: Keep Vein Open Labs: Laboratory Tests 02/07/17 02/07/17 02/07/17 Range/Units 11:20 11:20 11:20 WBC 7.8 (4.0-10.2) K/uL RBC 2.13 L (4.33-5.41) M/uL Hgb 5.8 L* D (13.1-16.8) g/dL Hct 18.4 L* (39.0-49.0) % MCV 86.4 (84.0-98.0) fL MCH 27.2 L (28.2-33.3) pg MCHC 31.5 L (31.7-36.0) g/dL RDW 17.5 H (11.2-14.1) % Plt Count 146 L (150-350) K/uL Neut % (Auto) 64.6 (45.0-80.0) % Lymph % (Auto) 18.9 (10.0-50.0) % [place] % (Auto) 11.8 (2.0-14.0) % Eos % (Auto) 4.1 (0.0-5.0) % Baso % (Auto) 0.6 (0.0-2.0) % Neut # (Auto) 5.01 (1.40-7.00) K/uL Lymph # (Auto) 1.47 (0.50-3.50) K/uL [place] # (Auto) 0.92 (0.00-1.00) K/uL Eos # (Auto) 0.32 (0.00-0.50) K/uL Baso # (Auto) 0.05 (0.00-0.20) K/uL PT 40.3 H (9.8-11.7) SEC INR 3.5 APTT 43.3 H (23.5-30.0) SEC Sodium 135 L (136-145) mmol/L Potassium 5.0 (3.5-5.1) mmol/L Chloride 100 (98-107) mmol/L Carbon Dioxide 27.0 (21.0-32.0) mmol/L BUN 87 H D (7-18) mg/dL Creatinine 2.17 H (0.51-1.17) mg/dL Est Cr Clr Drug Dosing 30.30 mL/min Estimated GFR (MDRD) 29 mL/min Glucose 276 H* (74-106) mg/dL Lactic Acid (0.4-2.0) mmol/L Uric Acid 7.2 (2.6-7.2) mg/dL Calcium 7.8 L (8.5-10.1) mg/dL Magnesium 2.1 (1.8-2.4) mg/dL Total Bilirubin 0.5 (0.2-1.0) mg/dL AST 37 (15-37) U/L ALT 18 (12-78) U/L Alkaline Phosphatase 120 H (46-116) IU/L Total Protein 7.0 (6.4-8.2) g/dL Albumin 3.1 L (3.4-5.0) g/dL Amylase 28 (25-115) U/L Lipase 198 (73-393) U/L Blood Type Gel Antibody Screen Crossmatch 02/07/17 02/07/17 Range/Units 11:20 11:25 WBC (4.0-10.2) K/uL RBC (4.33-5.41) M/uL Hgb (13.1-16.8) g/dL Hct (39.0-49.0) % MCV (84.0-98.0) fL MCH (28.2-33.3) pg MCHC (31.7-36.0) g/dL RDW (11.2-14.1) % Plt Count (150-350) K/uL Neut % (Auto) (45.0-80.0) % Lymph % (Auto) (10.0-50.0) % [place] % (Auto) (2.0-14.0) % Eos % (Auto) (0.0-5.0) % Baso % (Auto) (0.0-2.0) % Neut # (Auto) (1.40-7.00) K/uL Lymph # (Auto) (0.50-3.50) K/uL [place] # (Auto) (0.00-1.00) K/uL Eos # (Auto) (0.00-0.50) K/uL Baso # (Auto) (0.00-0.20) K/uL PT (9.8-11.7) SEC INR APTT (23.5-30.0) SEC Sodium (136-145) mmol/L Potassium (3.5-5.1) mmol/L Chloride (98-107) mmol/L Carbon Dioxide (21.0-32.0) mmol/L BUN (7-18) mg/dL Creatinine (0.51-1.17) mg/dL Est Cr Clr Drug Dosing mL/min Estimated GFR (MDRD) mL/min Glucose (74-106) mg/dL Lactic Acid 1.6 (0.4-2.0) mmol/L Uric Acid (2.6-7.2) mg/dL Calcium (8.5-10.1) mg/dL Magnesium (1.8-2.4) mg/dL Total Bilirubin (0.2-1.0) mg/dL AST (15-37) U/L ALT (12-78) U/L Alkaline Phosphatase (46-116) IU/L Total Protein (6.4-8.2) g/dL Albumin (3.4-5.0) g/dL Amylase (25-115) U/L Lipase (73-393) U/L Blood Type A POSITIVE Gel Antibody Screen Negative Crossmatch See Detail Meds: Medications Generic Name Dose Route Start Last Admin Trade Name Freq PRN Reason Stop Dose Admin Sodium Chloride 10 ml 02/07/17 11:25 Saline Flush FLUSH ASDIRECTED PRN Keep Vein Open Sodium Chloride 10 ml 02/07/17 11:26 Saline Flush FLUSH ASDIRECTED PRN Keep Vein Open Discontinued Medications Generic Name Dose Route Start Last Admin Trade Name Yandel PRN Reason Stop Dose Admin Famotidine 40 mg 02/07/17 11:25 Pepcid IVPUSH 02/07/17 11:26 ONETIME ONE Phytonadione 10 mg/ Sodium 51 mls @ 100 mls/hr 02/07/17 11:35 02/07/17 11:51 Chloride IV 02/07/17 12:05 100 mls/hr NOW ONE Administration Pantoprazole Sodium 40 mg 02/07/17 11:25 02/07/17 12:11 Protonix Iv IVPUSH 02/07/17 11:26 40 mg ONETIME ONE Administration - Radiology Interpretation Free Text/Narrative:: Heart monitor shows 100% dual paced pacemaker with heart rate in the 60s to 70s with no ectopy or arrhythmia Acute abdominal x-rays shows evidence of moderate COPD, mild cardiomegaly, and probable mild pulmonary hypertension with no CHF, pulmonary infiltrates, pneumothorax, free air, ileus, obstruction, fluid levels, etc. Pacemaker noted with leads in appropriate position. Moderate diffuse stool and nonspecific gaseous pattern Departure - Departure Time of Disposition: 13:15 Disposition: DC/Tfer to Acute Hospital 02 Condition: Fair Clinical Impression: IDDM (insulin dependent diabetes mellitus), Chronic renal disease, stage 4, severely decreased glomerular filtration rate (GFR) between 15-29 mL/min/1.73 square meter, Peptic reflux disease, Acute GI bleeding, Hypoalbuminemia, Hypocalcemia Abdominal pain Qualifiers: Abdominal location: left upper quadrant Qualified Code(s): R10.12 - Left upper quadrant pain Anemia Qualifiers: Anemia type: iron deficiency Iron deficiency anemia type: chronic blood loss Qualified Code(s): D50.0 - Iron deficiency anemia secondary to blood loss ( chronic) Atrial fibrillation Qualifiers: Atrial fibrillation type: chronic Qualified Code(s): I48.2 - Chronic atrial fibrillation CHF (congestive heart failure) Qualifiers: Congestive heart failure type: unspecified congestive heart failure type Congestive heart failure chronicity: chronic Qualified Code(s): I50.9 - Heart failure, unspecified COPD (chronic obstructive pulmonary disease) Qualifiers: COPD type: emphysema Emphysema type: panlobular Qualified Code(s): J43.1 - Panlobular emphysema Hypertension Qualifiers: Hypertension type: essential hypertension Qualified Code(s): I10 - Essential ( primary) hypertension Hyperlipidemia Qualifiers: Hyperlipidemia type: mixed hyperlipidemia Qualified Code(s): E78.2 - Mixed hyperlipidemia Osteoarthritis Qualifiers: Osteoarthritis location: multiple joints Osteoarthritis type: primary Qualified Code(s): M15.0 - Primary generalized (osteo)arthritis Hypothyroidism Qualifiers: Hypothyroidism type: acquired Qualified Code(s): E03.9 - Hypothyroidism, unspecified - Discharge Information Referrals: Rom Trinh CA[facility]ING CARRIER [Primary Care Provider] - Forms: ED Department Discharge, Interfacility Transfer EMTALA - Problem List & Annotations (1) Acute GI bleeding SNOMED Code(s): 83968359 Code(s): K92.2 - GASTROINTESTINAL HEMORRHAGE, UNSPECIFIED Status: Acute Priority: High Current Visit: Yes Onset Date: ~02/07/17 Annotation/Comment :: Probable acute upper GI bleed secondary to his peptic ulcer disease. He denies any recent excessive NSAID use, however note chronic Coumadin therapy as below Likely additional GI etiology to recent GI bleed on 01/25 as above. Various therapeutic options were discussed with the patient, who agrees with transfer, current treatment regimen, planned GI workup, etc. He does wish to be a FULL CODE. Telephone consultation at 11:[address] Vargas, hospitalist at [facility], who does accept the patient for direct admission. He is in agreement with our treatment plan with no further treatment recommendations given. Ambulance transfer with retail receiving clerk accompaniment. Note aggressive treatment in the emergency room, including high-dose IV Pepcid, IV Protonix, IV vitamin K, and fresh frozen plasma and transfusion of 1 unit of packed red blood cells in route by the paramedics. Probable GI versus surgical consultation shortly after arrival with consideration of EGD, colonoscopy, etc.. Further blood transfusions will likely also be required shortly after admission (2) Peptic reflux disease SNOMED Code(s): 72905350 Code(s): K21.9 - GASTRO-ESOPHAGEAL REFLUX DISEASE WITHOUT ESOPHAGITIS Status: Chronic Priority: Medium Current Visit: Yes Annotation/Comment:: Likely recurrent upper GI bleeds as above (3) Anemia SNOMED Code(s): 405629565 Code(s): D64.9 - ANEMIA, UNSPECIFIED Status: Chronic Priority: Medium Current Visit: Yes Annotation/Comment:: Known history of chronic iron deficiency, folic acid deficiency, and vitamin B-12 deficiency with recent recurrent GI bleeds as above Qualifiers: Anemia type: iron deficiency Iron deficiency anemia type: chronic blood loss Qualified Code(s): D50.0 - Iron deficiency anemia secondary to blood loss (chronic) (4) Abdominal pain SNOMED Code(s): 27578072 Code(s): R10.9 - UNSPECIFIED ABDOMINAL PAIN Status: Acute Priority: High Current Visit: Yes Onset Date: 05/10/15 Annotation/Comment:: As above Qualifiers: Abdominal location: left upper quadrant Qualified Code(s): R10.12 - Left upper quadrant pain (5) Atrial fibrillation SNOMED Code(s): 49539728 Code(s): I48.91 - UNSPECIFIED ATRIAL FIBRILLATION Status: Acute Priority : Medium Current Visit: Yes Annotation/Comment:: Stable with current pacemaker therapy with apparent previous unsuccessful electrocardioversion attempts by patient history. His INR is therapeutic today at 3.5, however his Coumadin should be held on a long-term basis for now secondary to his apparent recurrent GI bleeds. Qualifiers: Atrial fibrillation type: chronic Qualified Code(s): I48.2 - Chronic atrial fibrillation (6) CHF (congestive heart failure) SNOMED Code(s): 87594449 Code(s): I50.9 - HEART FAILURE, UNSPECIFIED Status: Chronic Priority: Medium Current Visit: Yes Annotation/Comment:: No clinical evidence of recurrence of his CHF with no true chest pain or anginal-type symptoms. No evidence of CHF by acute abdominal x-rays as above. Note history of recent PTCA/ stent as above and current pacemaker therapy. Stable chronic mild hyponatremia secondary to his CHF Qualifiers: Congestive heart failure type: unspecified congestive heart failure type Congestive heart failure chronicity: chronic Qualified Code(s): I50.9 - Heart failure, unspecified (7) COPD (chronic obstructive pulmonary disease) SNOMED Code(s): 52034316 Code(s): J44.9 - CHRONIC OBSTRUCTIVE PULMONARY DISEASE, UNSPECIFIED Status : Chronic Current Visit: Yes Annotation/Comment:: No current medical therapy. Consider PFTs once his condition has stabilized Qualifiers: COPD type: emphysema Emphysema type: panlobular Qualified Code(s): J43.1 - Panlobular emphysema (8) Chronic renal disease, stage 4, severely decreased glomerular filtration rate (GFR) between 15-29 mL/min/1.73 square meter SNOMED Code(s): 605084604 Code(s): N18.4 - CHRONIC KIDNEY DISEASE, STAGE 4 (SEVERE) Status: Chronic Priority: High Current Visit: Yes Annotation/Comment:: Note history of diabetic nephropathy. Continue to observe renal function closely by accepting providers (9) Hyperlipidemia SNOMED Code(s): 60744311 Code(s): E78.5 - HYPERLIPIDEMIA, UNSPECIFIED Status: Chronic Priority: Medium Current Visit: Yes Annotation/Comment:: Not currently under therapy with previous history of dyslipidemia. Random lipid panel with next blood draw. The patient would benefit from a statin secondary to his known coronary artery disease and recent PTCA/stent as above. Qualifiers: Hyperlipidemia type: mixed hyperlipidemia Qualified Code(s): E78.2 - Mixed hyperlipidemia (10) Hypertension SNOMED Code(s): 78334237 Code(s): I10 - ESSENTIAL (PRIMARY) HYPERTENSION Status: Chronic Priority : Medium Current Visit: Yes Annotation/Comment:: Adequate control in the emergency room despite cardiac history and acute GI bleed. Watch blood pressures closely with patient to the transferred with telemetry IV Qualifiers: Hypertension type: essential hypertension Qualified Code(s): I10 - Essential (primary) hypertension (11) IDDM (insulin dependent diabetes mellitus) SNOMED Code(s): 54556400 Code(s): E11.9 - TYPE 2 DIABETES MELLITUS WITHOUT COMPLICATIONS; Z79.4 - RETIREMENT (CURRENT) USE OF INSULIN Status: Chronic Priority: Medium Current Visit: Yes Annotation/Comment:: Patient has a long history of labile IDDM, including frequent episodes of hypoglycemia and hyperglycemia. He does not take home Accu-Cheks. Home health is in effect (12) Diabetic nephropathy Status: Acute Priority: Medium Current Visit: No Annotation/Comment:: Stable renal insufficiency at this time. Observe renal function closely secondary to aggressive IV diuresis Qualifiers: Diabetes mellitus type: type 2 Qualified Code(s): E11.21 - Type 2 diabetes mellitus with diabetic nephropathy (13) Hypothyroidism SNOMED Code(s): 24412185 Code(s): E03.9 - HYPOTHYROIDISM, UNSPECIFIED Status: Acute Priority: Medium Current Visit: Yes Annotation/Comment:: Currently under therapy Qualifiers: Hypothyroidism type: acquired Qualified Code(s): E03.9 - Hypothyroidism, unspecified (14) Hypoalbuminemia SNOMED Code(s): 591215365 Code(s): E88.09 - OTH DISORDERS OF PLASMA-PROTEIN METABOLISM, NEC Status: Acute Priority: Medium Current Visit: Yes Onset Date: ~02/07/17 Annotation/Comment:: Consider high-protein Glucerna supplements as snacks (15) Hypocalcemia SNOMED Code(s): 0100553 Code(s): E83.51 - HYPOCALCEMIA Status: Acute Priority: Medium Current Visit: Yes Onset Date: ~02/07/17 Annotation/Comment:: Observe for now - Problem List Review Problem List Initiated/Reviewed/Updated: Yes - My Orders Last 24 Hours: My Active Orders 02/07/17 11:23 Abdomen Series w Chest 1V [CR] Stat 02/07/17 11:24 OCCULT BLOOD DIAGNOSTIC [OP] Stat Obtain Past Medical Record [OM.PC] Urgent Peripheral IV Insertion Adult [OM.PC] Stat 02/07/17 11:25 Cardiac Monitoring [RC] . DIRECTED Peripheral IV Care [RC] . DIRECTED Sodium Chloride 0.9% [Saline Flush] 10 ml FLUSH ASDIRECTED PRN 02/07/17 11:26 Peripheral IV Care [RC] . DIRECTED Sodium Chloride 0.9% [Saline Flush] 10 ml FLUSH ASDIRECTED PRN Peripheral IV Insertion Adult [OM.PC] Stat 02/07/17 13:47 Resuscitation Status Routine - Assessment/Plan Last 24 Hours: My Active Orders 02/07/17 11:23 Abdomen Series w Chest 1V [CR] Stat 02/07/17 11:24 OCCULT BLOOD DIAGNOSTIC [OP] Stat Obtain Past Medical Record [OM.PC] Urgent Peripheral IV Insertion Adult [OM.PC] Stat 02/07/17 11:25 Cardiac Monitoring [RC] . DIRECTED Peripheral IV Care [RC] . DIRECTED Sodium Chloride 0.9% [Saline Flush] 10 ml FLUSH ASDIRECTED PRN 02/07/17 11:26 Peripheral IV Care [RC] . DIRECTED Sodium Chloride 0.9% [Saline Flush] 10 ml FLUSH ASDIRECTED PRN Peripheral IV Insertion Adult [OM.PC] Stat 02/07/17 13:47 Resuscitation Status Routine Assessment:: As above Plan: As above. Extensive precautions were given to the patient, who is in agreement with the treatment plan. Ambulance transfer with retail receiving clerk accompaniment
[2017-02-07 14:38] VITALS: BP 96/45
== END 2017-02-07 13:15 ==
LOC: LL.ED 11:03
DX: K92.2 Gastrointestinal hemorrhage, unspecified (principal); I13.0 Hypertensive heart and chronic kidney disease with heart failure and stage 1 through stage 4 chronic kidney disease, or unspecified chronic kidney disease; I50.9 Heart failure, unspecified; N18.4 Chronic kidney disease, stage 4 (severe); E88.09 Other disorders of plasma-protein metabolism, not elsewhere classified; K21.9 Gastro-esophageal reflux disease without esophagitis; E83.51 Hypocalcemia; E10.40 Type 1 diabetes mellitus with diabetic neuropathy, unspecified; H54.7 Unspecified visual loss; I48.91 Unspecified atrial fibrillation; I25.10 Atherosclerotic heart disease of native coronary artery without angina pectoris; J44.9 Chronic obstructive pulmonary disease, unspecified; Z86.711 Personal history of pulmonary embolism; Z98.890 Other specified postprocedural states; E03.9 Hypothyroidism, unspecified; Z87.891 Personal history of nicotine dependence; Z79.82 Long term (current) use of aspirin; Z79.899 Other long term (current) drug therapy; Z79.01 Long term (current) use of anticoagulants; Z79.4 Long term (current) use of insulin
CPT/HCPCS: 36415; 36430; 74022; 80053; 82150; 82272; 83605; 83690; 83735; 84550; 85025; 85610; 85730; 86850; 86900; 86901; 86920; 86922; 96365; 96375; 99291; 99292; C9113; J3430; J7050; P9016; P9017; 99282; S0028

== ENCOUNTER 2017-02-15 15:17 | Inpatient (IN) | payer MEDICARE, BC ==
[2017-02-15] MEDS ORDERED: Bisacodyl 10 MG Supp RECTAL PRN (17:43)
[2017-02-15] MEDS ORDERED: Acetaminophen 325 MG Tab PO PRN (17:43)
[2017-02-15] MEDS ORDERED: Magnesium Hydroxide 400 MG/5 ML Susp 30 ML Cup PO PRN (17:43)
[2017-02-15] MEDS ORDERED: Nitroglycerin 0.4 MG Tab.SL SL PRN (17:57)
[2017-02-15] MEDS ORDERED: EMOLLIENT BASE TOP SCH (18:00)
--- NOTE | 2017-02-15 18:07 | PCM.HP ---
H&P History of Present Illness - General Date of Service: 02/15/17 Admit Problem/Dx: Admission Diagnosis/Problem Admission Diagnosis/Problem Gastrointestinal hemorrhage Source of Information: Patient, Other ([facility] records) History Limitations: Reports: No Limitations - History of Present Illness Initial Comments - Free Text/Narative: Patient transferred from [facility] in [place] to be admitted here on Swingbed for PT/OT and strengthening. Recent GI bleed and deconditioning. Received transfusions while at [facility]. No observed recent bleeding. Hgb in mid 8 range. THis is the usual range for the patient. He chronically runs around 8-9. He has stage 4 kidney disease. Recent stent. Poorly complies with diabetes management. Taken off of Warfarin because of GI bleed. On Brilinta to help with stent patency. No additional concerns relayed from [facility]. They do feel that patient likely has mild dementia. - Related Data Allergies/Adverse Reactions: Allergies Allergy/AdvReac Type Severity Reaction Status Date / Time No Known Allergies Allergy Verified 06/09/15 17:53 Home Medications: Home Meds Allopurinol [Zyloprim] 200 mg PO DAILY 04/25/15 [History] Aspirin [Halfprin] 81 mg PO DAILY 04/25/15 [History] Folic Acid 1 mg PO DAILY 04/25/15 [History] Torsemide 30 mg PO DAILY 04/25/15 [History] Levothyroxine 75 mcg PO ACBREAKFAST #30 tablet 06/11/15 [Rx] Insulin Detemir [Levemir] 35 unit SUBCUT BEDTIME 10/16/15 [History] Cholecalciferol (Vitamin D3) [Vitamin D3] 2,000 unit PO DAILY 01/25/17 [History] Insulin Aspart [Novolog Flexpen] 14 units SUBCUT DAILY 01/25/17 [History] Metoprolol Succinate [Toprol XL] 50 mg PO DAILY 01/25/17 [History] Nitroglycerin [Nitrostat] 0.4 mg SL ASDIRECTED PRN 01/25/17 [History] Ticagrelor [Brilinta] 90 mg PO BID 01/25/17 [History] Docusate Sodium [Colace] 100 mg PO BID 02/15/17 [History] Emollient Base [Emollient] 1 applic TOP BID 02/15/17 [History] Pantoprazole [ProTONIX] 40 mg PO ACBREAKFAST 02/15/17 [History] Past Medical History - Past Health History Medical/Surgical History: Denies Medical/Surgical History HEENT History: Reports: Cataract, Hard of Hearing, Impaired Vision, Other (See Below) Other HEENT History: Bilateral hearing aids, patient wears reading glasses Cardiovascular History: Reports: Afib, Arrhythmia, CAD, Cardiomyopathy, Heart Failure, Heart Murmur, Hypertension, Pacemaker, PTCA, Pulmonary Hypertension, Stents Other Cardiovascular History: Cardiac surgeries as below, cardiomegaly by chest x-ray with history of CHF and atrial fibrillation, no history of FL despite previous PTCA/stent 1, severe cardiomyopathy with ejection fraction of only 25- 30% at time of last echocardiogram on 10/15/16 with additional moderate aortic valve stenosis, mitral valve insufficiency, tricuspid valve insufficiency, and pulmonary hypertension, dyslipidemia Respiratory History: Reports: Bronchitis, Recurrent, COPD, Intubation, Previous , Other (See Below) Other Respiratory History: COPD by chest x-ray with no current medical therapy Gastrointestinal History: Reports: Diverticulosis, GERD, GI Bleed, Hepatitis, Other (See Below) Other Gastrointestinal History: Severe diverticulosis by colonoscopy with no history of diverticulitis, history of hepatic cirrhosis and ascites by CT scan with splenomegaly by CT scan Genitourinary History: Reports: BPH, Chronic Renal Insuffiency, Diabetic Nephropathy, Urinary Incontinence, Other (See Below) Other Genitourinary History: Stage IV chronic renal insufficiency with bilateral renal atrophy by distant ultrasound Musculoskeletal History: Reports: Arthritis, Back Pain, Chronic, Fracture, Gout , Neck Pain, Chronic, Osteoarthritis, Osteoporosis Other Musculoskeletal History: History of left clavicular fracture at about age 17 with no surgery required, hyperuricemia without history of gout attacks, right-sided Catse's cyst by venous Doppler studies on 06/02/16 Neurological History: Reports: Alzheimers Disease, Neuropathy, Diabetic, Neuropathy, Peripheral, Other (See Below) Other Neuro History: Chronic familial resting tremor, 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, mild organic brain syndrome Psychiatric History: Reports: Alzheimers Disease, Dementia, Other (See Below) Other Psychiatric History: Mild organic brain syndrome Endocrine/Metabolic History: Reports: Diabetes, Type II, Hypothyroidism, IDDM, Osteoporosis, Vitamin D Deficiency Hematologic History: Reports: Anticoagulation Therapy, B12 Deficiency, Blood Transfusion(s), Folic Acid, Iron Deficiency, Other (See Below) Other Hematologic History: Blood transfusion of 4 units of packed red blood cells during hospitalization in this facility on 01/25/17 through 01/27/17, chronic Coumadin therapy for atrial fibrillation Immunologic History: Reports: None Oncologic (Cancer) History: Reports: None Dermatologic History: Reports: None - Infectious Disease History Infectious Disease History: Reports: Chicken Pox, Mumps. Denies: C-Difficile, Measles, Meningitis, Mononucleosis, MRSA, Pertussis (Whooping Cough), Rheumatic Fever, Rubella, Scarlet Fever, Shingles, VRE - Past Surgical History Head Surgeries/Procedures: Reports: None HEENT Surgical History: Reports: Adenoidectomy, Cataract Surgery, Oral Surgery, Tonsillectomy, Other (See Below) Other HEENT Surgeries/Procedures: Multiple teeth extractions with lower partials , tonsillectomy and adenoidectomy at about age 14?, bilateral cataract surgery in about 1999? Cardiovascular Surgical History: Reports: Coronary Artery Stent, Pacer, Percutaneous Transluminal Angioplasty, Other (See Below) Other Cardiovascular Surgeries/Procedures: Pacemaker placement in 2003 secondary to cardiac dysfunction with history of pacemaker generator replacement on 10/28/12 and 10/31/06, PTCA/stent 1 of the proximal LAD on 01/11/17 , unsuccessful previous cardioversion for atrial fibrillation Respiratory Surgical History: Reports: None GI Surgical History: Reports: Appendectomy, Colonoscopy, Hernia, Abdominal, Other (See Below) Other GI Surgeries/Procedures: Appendectomy at about age 15, abdominal ventral hernia repair in about 2003 versus the with patient uncertain,colonoscopy last on 11/30/12 and a paracentesis of abdominal ascites on 12/30/01 Male Surgical History: Reports: None Endocrine Surgical History: Reports: None Neurological Surgical History: Reports: Discectomy, Laminectomy, Thoracic Spine , Other (See Below) Other Neurological Surgeries/Procedures: Possible laminectomy in the thoracic spine in his 50s Musculoskeletal Surgical History: Reports: None Oncologic Surgical History: Reports: None Dermatological Surgical History: Reports: None - Past Imaging History Past Imaging History: Reports: Angiography (Last heart catheterization on with previous evaluation on 04/30/13), Cardiac Echo (Last echocardiogram on 10/15/16 with findings as above with previous echocardiogram on 10/31/12 showing ejection fraction of 50%), CAT Scan (Last CT scan of the abdomen and pelvis on with previous evaluation on 12/17/11, CT of the left hip on 11/08/12), PFT ( 12/05/12 and 07/20/12), Stress Testing (Last Cardiolite stress test on 11/12/16), Ultrasound (Limited abdominal ultrasound on 01/05/14, renal ultrasound on 01/30/13 ), Upper GI X-Ray/Series (11/13/12), Venous Doppler (Right leg on 06/02/16) Social & Family History - Family History Cardiac: Reports: Other (See Below) Other Cardiac Family History: Son with fatal FL at age 42, daughter with fatal FL at age 41, mother with pacemaker, 4 maternal uncles with fatal MIs 2 in their 50s with the other 2 in their 70s, sister with CABG initially in her early 60s with fatal FL/CABG at about age 65, 2 maternal cousins with fatal MIs in their 50s Oncologic: Reports: Other (See Below) Other Oncologic Family History: Maternal cousin with possible lung cancer secondary to tobacco use - Tobacco Use Smoking Status *Q: Never Smoker Years of Tobacco use: 35 Packs/Tins Daily: 0.5 (Mode between ages 17 and 52) Used Tobacco, but Quit: Yes Month Tobacco Last Used: As above Second Hand Smoke Exposure: Yes - Caffeine Use Caffeine Use: Reports: Coffee Other Caffeine Use: One cup a day of coffee. 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 Denies: Fever, Night Sweats, Diaphoresis, Decreased Appetite, Weight Loss, Weight Gain HEENT: Reports: No Symptoms Pulmonary: Reports: No Symptoms Cardiovascular: Reports: No Symptoms Gastrointestinal: Reports: No Symptoms. Denies: Hematochezia Genitourinary: Reports: No Symptoms Musculoskeletal: Reports: No Symptoms Skin: Reports: Bruising (from recent IV sticks) Psychiatric: Reports: No Symptoms Neurological: Reports: No Symptoms Exam - Exam Exam: See Below - Vital Signs Weight: 96.388 kg - Exam General: Alert, Oriented, Cooperative HEENT: Conjunctiva Clear, EOMI, Hearing Intact, Mucosa Moist & [place], Nares Patent, Posterior Pharynx Clear, Pupils Equal, Pupils Reactive Neck: Supple, Trachea Midline. No: Lymphadenopathy, Carotid Bruit, Thyromegaly Lungs: Clear to Auscultation, Normal Respiratory Effort Cardiovascular: Regular Rate, Regular Rhythm, Systolic Murmur Abdomen: Normal Bowel Sounds, Soft (Male) Exam: Deferred Rectal (Males) Exam: Deferred Back Exam: No: CVA Tenderness (L), CVA Tenderness (R), Muscle Spasm, Paraspinal Tenderness, Vertebral Tenderness Extremities: Normal Inspection, Normal Pulses. No: Calf Tenderness Peripheral Pulses: 2+: Radial (L), Radial (R) Skin: Warm, Dry, Intact Neurological: Reflexes Equal Bilateral, Strength Equal Bilateral Neuro Extensive - Mental Status: Alert, Oriented x3, Normal Mood/Affect Neuro Extensive - Motor, Sensory, Reflexes: Normal Reflexes DTR: 2+: Patella (L), Patella (R) Psychiatric: Alert, Normal Affect, Normal Mood *Q Meaningful Use (ADM) - VTE *Q VTE Criteria *Q: - Stroke *Q Stroke Criteria *Q: - AMI *Q AMI Criteria *Q: - Problem List (1) Acute GI bleeding SNOMED Code(s): 68611000 ICD Code: K92.2 - GASTROINTESTINAL HEMORRHAGE, UNSPECIFIED Status: Acute Priority: Low Current Visit: Yes Onset Date: ~02/07/17 Problem Details: No recent active bleeding noted while admitted to [facility]. Follow up with GI planned. Recommended to have endoscopy. Warfarin discontinued due to GI bleed. (2) Anemia SNOMED Code(s): 014301738 ICD Code: D64.9 - ANEMIA, UNSPECIFIED Status: Chronic Priority: Medium Current Visit: No Problem Details: Known history of chronic iron deficiency, folic acid deficiency, and vitamin B-12 deficiency with recent recurrent GI bleeds as above Qualifiers: Anemia type: iron deficiency Iron deficiency anemia type: chronic blood loss Qualified Code(s): D50.0 - Iron deficiency anemia secondary to blood loss (chronic) (3) Cardiac pacemaker SNOMED Code(s): 396509287, 788818823 ICD Code: Z95.0 - PRESENCE OF CARDIAC PACEMAKER Status: Chronic Priority : Low Current Visit: No (4) Benign essential tremor SNOMED Code(s): 941748700 ICD Code: G25.0 - ESSENTIAL TREMOR Status: Chronic Priority: Low Current Visit: No (5) Vitamin D deficiency SNOMED Code(s): 15357225 ICD Code: E55.9 - VITAMIN D DEFICIENCY, UNSPECIFIED Status: Chronic Priority: Low Current Visit: No (6) Gout SNOMED Code(s): 61564094 ICD Code: M10.9 - GOUT, UNSPECIFIED Status: Chronic Priority: Low Current Visit: No (7) BPH (benign prostatic hyperplasia) SNOMED Code(s): 565029740, 415610198 ICD Code: N40.0 - BENIGN PROSTATIC HYPERPLASIA WITHOUT LOWER URINRY TRACT SYMP Status: Chronic Priority: Low Current Visit: No (8) Chronic systolic (congestive) heart failure SNOMED Code(s): 482189294, 805730044 ICD Code: I50.22 - CHRONIC SYSTOLIC (CONGESTIVE) HEART FAILURE Status: Chronic Priority: Low Current Visit: No (9) CAD (coronary artery disease) SNOMED Code(s): 06581010 ICD Code: I25.10 - ATHSCL HEART DISEASE OF [place] CORONARY ARTERY W/O ANG PCTRS Status: Chronic Priority: Low Current Visit: No (10) Noncompliance with diabetes treatment SNOMED Code(s): 0525689 ICD Code: Z91.19 - PATIENT'S NONCOMPLIANCE W OTH MEDICAL TREATMENT AND REGIMEN Status: Chronic Priority: Low Current Visit: Yes (11) Atrial fibrillation SNOMED Code(s): 86688711 ICD Code: I48.91 - UNSPECIFIED ATRIAL FIBRILLATION Status: Chronic Priority: Low Current Visit: No Problem Details: Stable with current pacemaker therapy with apparent previous unsuccessful electrocardioversion attempts by patient history. His INR is therapeutic today at 3.5, however his Coumadin should be held on a long-term basis for now secondary to his apparent recurrent GI bleeds. Qualifiers: Atrial fibrillation type: chronic Qualified Code(s): I48.2 - Chronic atrial fibrillation (12) Diabetic nephropathy Status: Acute Priority: Medium Current Visit: No Qualifiers: Diabetes mellitus type: type 2 Qualified Code(s): E11.21 - Type 2 diabetes mellitus with diabetic nephropathy (13) Generalized weakness SNOMED Code(s): 51466144 ICD Code: R53.1 - WEAKNESS Status: Acute Priority: High Current Visit: Yes Problem Details: Worsened since recent bout with blood loss/anemia. Admit for PT/OT. (14) Hypothyroidism SNOMED Code(s): 99073057 ICD Code: E03.9 - HYPOTHYROIDISM, UNSPECIFIED Status: Acute Priority: Low Current Visit: No Problem Details: Currently under therapy Qualifiers: Hypothyroidism type: acquired Qualified Code(s): E03.9 - Hypothyroidism, unspecified (15) Chronic renal disease, stage 4, severely decreased glomerular filtration rate (GFR) between 15-29 mL/min/1.73 square meter SNOMED Code(s): 168792111 ICD Code: N18.4 - CHRONIC KIDNEY DISEASE, STAGE 4 (SEVERE) Status: Chronic Priority: High Current Visit: No Problem Details: Note history of diabetic nephropathy. Continue to observe renal function closely by accepting providers (16) Hyperlipidemia SNOMED Code(s): 39468855 ICD Code: E78.5 - HYPERLIPIDEMIA, UNSPECIFIED Status: Chronic Priority: Medium Current Visit: No Problem Details: Not currently under therapy with previous history of dyslipidemia. Random lipid panel with next blood draw. The patient would benefit from a statin secondary to his known coronary artery disease and recent PTCA/stent as above. Qualifiers: Hyperlipidemia type: mixed hyperlipidemia Qualified Code(s): E78.2 - Mixed hyperlipidemia (17) Hypertension SNOMED Code(s): 11791449 ICD Code: I10 - ESSENTIAL (PRIMARY) HYPERTENSION Status: Chronic Priority : Medium Current Visit: No Problem Details: Adequate control in the emergency room despite cardiac history and acute GI bleed. Watch blood pressures closely with patient to the transferred with telemetry IV Qualifiers: Hypertension type: essential hypertension Qualified Code(s): I10 - Essential (primary) hypertension (18) IDDM (insulin dependent diabetes mellitus) SNOMED Code(s): 21120014 ICD Code: E11.9 - TYPE 2 DIABETES MELLITUS WITHOUT COMPLICATIONS; Z79.4 - [place] (CURRENT) USE OF INSULIN Status: Chronic Priority: Medium Current Visit: No Problem Details: Patient has a long history of labile IDDM, including frequent episodes of hypoglycemia and hyperglycemia. He does not take home Accu-Cheks. Home health is in effect Problem List Initiated/Reviewed/Updated: Yes Orders Last 24hrs: Active Orders 24 hr Category Date Time Status Patient Status [ADT] Routine ADT 02/15/17 17:43 Active Accu Check [Blood Glucose Check, Bedside] [RC] Care 02/15/17 17:50 Active QIDACANDBED Communication Order [RC] ROUTINE Care 02/15/17 17:54 Ordered Communication Order [RC] ROUTINE Care 02/15/17 17:55 Ordered Height and Weight [RC] WEEKLY Care 02/15/17 17:43 Active May Shower [RC] ASDIRECTED Care 02/15/17 17:43 Active Oxygen Therapy [RC] PRN Care 02/15/17 17:47 Active Pulse Oximetry [RC] PRN Care 02/15/17 17:47 Active Up With Assistance [RC] ASDIRECTED Care 02/15/17 17:43 Active Vital Signs [RC] PER UNIT ROUTINE Care 02/15/17 17:43 Active Consult to Occupational Therapy [OT Evaluation and Cons 02/15/17 17:49 Active Treatment] [CONS] Routine PT Evaluation and Treatment [CONS] Routine Cons 02/15/17 17:49 Active ADA Diabetic [[place] Diabetic [employer] Diet] [DIET Diet 02/16/17 Breakfast Active ] CBC WITH AUTO DIFF [HEME] Timed Lab 02/21/17 07:00 Ordered CBC WITH AUTO DIFF [HEME] Timed Lab 02/28/17 07:00 Ordered COMPREHENSIVE METABOLIC PN,CMP [CHEM] Timed Lab 02/21/17 07:00 Ordered COMPREHENSIVE METABOLIC PN,CMP [CHEM] Timed Lab 02/28/17 07:00 Ordered Acetaminophen [Tylenol] Med 02/15/17 17:43 Ordered 650 mg PO Q4H PRN Allopurinol [Zyloprim] Med 02/16/17 08:00 Ordered 200 mg PO DAILY Aspirin [Halfprin] Med 02/16/17 08:00 Ordered 81 mg PO DAILY Bisacodyl [Dulcolax] Med 02/15/17 17:43 Ordered 10 mg RECTAL DAILY PRN Cholecalciferol (Vitamin D3) [Vitamin D3] Med 02/16/17 08:00 Ordered 2,000 unit PO DAILY Docusate Sodium [Colace] Med 02/15/17 18:00 Ordered 100 mg PO BID Emollient Base [Emollient] Med 02/15/17 18:00 Ordered 1 applic TOP BID Folic Acid Med 02/16/17 08:00 Ordered 1 mg PO DAILY Insulin Aspart [NovoLOG] Med 02/16/17 08:00 Ordered 14 unit SUBCUT DAILY Insulin Detemir [Levemir] Med 02/15/17 20:00 Ordered 35 unit SUBCUT BEDTIME Levothyroxine Med 02/16/17 07:30 Ordered 75 mcg PO ACBREAKFAST Magnesium Hydroxide [Milk of Magnesia] Med 02/15/17 17:43 Ordered 30 ml PO BID PRN Metoprolol Succinate [Toprol XL] Med 02/16/17 08:00 Ordered 50 mg PO DAILY Nitroglycerin [Nitrostat] Med 02/15/17 17:57 Ordered 0.4 mg SL ASDIRECTED PRN Pantoprazole [ProTONIX] Med 02/16/17 07:30 Ordered 40 mg PO ACBREAKFAST Ticagrelor [Brilinta] Med 02/15/17 18:00 Ordered 90 mg PO BID Torsemide [Torsemide] Med 02/16/17 08:00 Ordered 30 mg PO DAILY Resuscitation Status Routine Resus Stat 02/15/17 17:43 Ordered Medication Orders Acetaminophen (Tylenol) 650 mg PO Q4H PRN PRN Reason: analgesia/fever Allopurinol (Zyloprim) 200 mg PO DAILY [facility] Aspirin (Halfprin) 81 mg PO DAILY [facility] Bisacodyl (Dulcolax) 10 mg RECTAL DAILY PRN PRN Reason: Constipation Docusate Sodium (Colace) 100 mg PO BID [facility] Folic Acid (Folic Acid) 1 mg PO DAILY [facility] Insulin Aspart (Novolog) 14 unit SUBCUT DAILY [facility] Insulin Detemir (Levemir) 35 unit SUBCUT BEDTIME [facility] Levothyroxine Sodium (Levothyroxine) 75 mcg PO ACBREAKFAST [facility] Magnesium Hydroxide (Milk Of Magnesia) 30 ml PO BID PRN PRN Reason: Constipation Nitroglycerin (Nitrostat) 0.4 mg SL ASDIRECTED PRN PRN Reason: Chest Pain Non-Formulary Medication (Cholecalciferol (Vitamin D3) [Vitamin D3]) 2,000 unit PO DAILY [facility] Non-Formulary Medication (Emollient Base [Emollient]) 1 applic TOP BID [facility] Non-Formulary Medication (Metoprolol Succinate [Toprol Xl]) 50 mg PO DAILY [facility] Non-Formulary Medication (Ticagrelor [Brilinta]) 90 mg PO BID [facility] Non-Formulary Medication (Torsemide [Torsemide]) 30 mg PO DAILY [facility] Pantoprazole Sodium (Protonix) 40 mg PO ACBREAKFAST [facility] Assessment/Plan Comment:: Admit to swing bed for PT/OT and strengthening. Continue to observe for recurrence of GI bleed.
[2017-02-15] MEDS: Docusate Sodium 100 MG Cap PO SCH (20:54)
[2017-02-15] MEDS: Ticagrelor 90 MG Tab PO SCH (20:54)
[2017-02-15] MEDS: Insulin Detemir 100 Units/ML 3 ML Pen SUBCUT SCH (20:55)
[2017-02-16] MEDS: Pantoprazole 40 MG Tab.CR PO SCH (07:20)
[2017-02-16] MEDS: Levothyroxine 75 MCG Tab PO SCH (07:20)
[2017-02-16] MEDS: Allopurinol 100 MG Tab PO SCH (08:03)
[2017-02-16] MEDS: Docusate Sodium 100 MG Cap PO SCH ×2 (08:04→17:26)
[2017-02-16] MEDS: Aspirin 81 MG Tab.EC PO SCH (08:05)
[2017-02-16] MEDS: Metoprolol Succinate 50 MG Tab.ER PO SCH (08:05)
[2017-02-16] MEDS: Cholecalciferol (Vitamin D3) 1,000 Unit Tab PO SCH (08:06)
[2017-02-16] MEDS: Ticagrelor 90 MG Tab PO SCH ×2 (08:18→17:25)
[2017-02-16] MEDS: Folic Acid 1 MG Tab PO SCH (08:19)
[2017-02-16] MEDS: Insulin Aspart 100 Units/ML 3 ML Pen SUBCUT SCH (08:21)
--- NOTE | 2017-02-16 15:30 | PCM.PN ---
- General Info Date of Service: 02/16/17 Functional Status: Reports: pain controlled (Other than intermittent left heel) - Review of Systems General: Reports: No Symptoms HEENT: Reports: no symptoms Pulmonary: Reports: no symptoms Cardiovascular: Reports: No Symptoms Gastrointestinal: Reports: No symptoms Genitourinary: Reports: frequency Musculoskeletal: Reports: foot pain (Left heel) Neurological: Reports: No Symptoms Psychiatric: Reports: no symptoms - Patient Data Vitals - most recent: Last Vital Signs Temp 36.1 C 02/16/17 09:00 Pulse 65 02/16/17 09:00 Resp 16 02/16/17 09:00 BP 127/60 02/16/17 09:00 Pulse Ox 100 02/16/17 09:00 Weight - most recent: 96.388 kg Lab Results last 24 hrs: Laboratory Results - last 24 hr 02/15/17 02/16/17 02/16/17 Range/Units 20:53 07:22 11:46 POC Glucose 210 H 125 H 171 H (65-110) mg/dl Med Orders - Current: Current Medications Acetaminophen (Tylenol) 650 mg PO Q4H PRN PRN Reason: analgesia/fever Allopurinol (Zyloprim) 200 mg PO DAILY [facility] Last Admin: 02/16/17 08:03 Dose: 200 mg Aspirin (Halfprin) 81 mg PO DAILY [facility] Last Admin: 02/16/17 08:05 Dose: 81 mg Cholecalciferol (Vitamin D3) 2,000 units PO DAILY [facility] Last Admin: 02/16/17 08:06 Dose: 2,000 units Docusate Sodium (Colace) 100 mg PO BID [facility] Last Admin: 02/16/17 08:04 Dose: 100 mg Folic Acid (Folic Acid) 1 mg PO DAILY [facility] Last Admin: 02/16/17 08:19 Dose: 1 mg Insulin Aspart (Novolog) 14 unit SUBCUT DAILY [facility] Last Admin: 02/16/17 08:21 Dose: 14 units Insulin Detemir (Levemir) 35 unit SUBCUT BEDTIME [facility] Last Admin: 02/15/17 20:55 Dose: 35 units Levothyroxine Sodium (Levothyroxine) 75 mcg PO ACBREAKFAST [facility] Last Admin: 02/16/17 07:20 Dose: 75 mcg Magnesium Hydroxide (Milk Of Magnesia) 30 ml PO BID PRN PRN Reason: Constipation Metoprolol Succinate (Toprol Xl) 50 mg PO DAILY [facility] Last Admin: 02/16/17 08:05 Dose: 50 mg Nitroglycerin (Nitrostat) 0.4 mg SL ASDIRECTED PRN PRN Reason: Chest Pain Pantoprazole Sodium (Protonix) 40 mg PO ACBREAKFAST [facility] Last Admin: 02/16/17 07:20 Dose: 40 mg Ticagrelor (Brilinta) 90 mg PO BID [facility] Last Admin: 02/16/17 08:18 Dose: 90 mg Torsemide (Demadex) 30 mg PO DAILY [facility] Last Admin: 02/16/17 08:04 Dose: 30 mg Discontinued Medications Bisacodyl (Dulcolax) 10 mg RECTAL DAILY PRN PRN Reason: Constipation - Exam General: alert, oriented HEENT: Pupils equal, Pupils reactive Neck: supple Lungs: Clear to auscultation (Mild diminished) Cardiovascular: Regular Rate Abdomen: bowel sounds present, no tenderness (Male) Exam: Deferred Extremities: no edema (Tenderness left heel Achilles region no point tenderness) Skin: warm, intact Neurological: no new focal deficit Psy/Mental Status: alert, normal affect - Problem List & Annotations (1) Neuropathy associated with endocrine disorder SNOMED Code(s): 091765421 Code(s): E34.9 - ENDOCRINE DISORDER, UNSPECIFIED; G63 - POLYNEUROPATHY IN DISEASES CLASSIFIED ELSEWHERE Status: Acute Priority: High Current Visit: Yes (2) Pain of left heel SNOMED Code(s): 0876249 Code(s): M79.672 - PAIN IN LEFT FOOT Status: Acute Priority: Medium Current Visit: Yes - Problem List Review Problem List Initiated/Reviewed/Updated: Yes - My Orders Last 24 Hours: My Active Orders 02/16/17 10:15 Communication Order [RC] DAILY 02/16/17 10:45 Communication Order [RC] BID - Plan Plan:: Admit to swing bed for PT/OT and strengthening. Continue to observe for recurrence of GI bleed. Discussed aspects of a change implementation of diabetic neuropathy medication which he declined stating "I'm taking too many pills now". We will continue to monitor this for changes and review recommendations for control as he appears to be somewhat comfortable at the time of my visit.
[2017-02-16] MEDS: Insulin Detemir 100 Units/ML 3 ML Pen SUBCUT SCH (19:57)
[2017-02-17] MEDS: Pantoprazole 40 MG Tab.CR PO SCH (06:57)
[2017-02-17] MEDS: Levothyroxine 75 MCG Tab PO SCH (06:57)
[2017-02-17] MEDS: Ticagrelor 90 MG Tab PO SCH ×2 (07:48→17:52)
[2017-02-17] MEDS: Docusate Sodium 100 MG Cap PO SCH ×2 (07:49→17:52)
[2017-02-17] MEDS: Folic Acid 1 MG Tab PO SCH (07:50)
[2017-02-17] MEDS: Aspirin 81 MG Tab.EC PO SCH (07:50)
[2017-02-17] MEDS: Cholecalciferol (Vitamin D3) 1,000 Unit Tab PO SCH (07:51)
[2017-02-17] MEDS: Metoprolol Succinate 50 MG Tab.ER PO SCH (07:51)
[2017-02-17] MEDS: Allopurinol 100 MG Tab PO SCH (07:52)
[2017-02-17] MEDS: Insulin Aspart 100 Units/ML 3 ML Pen SUBCUT SCH (07:53)
[2017-02-17] MEDS: Insulin Detemir 100 Units/ML 3 ML Pen SUBCUT SCH (20:13)
[2017-02-18] MEDS: Levothyroxine 75 MCG Tab PO SCH (07:26)
[2017-02-18] MEDS: Pantoprazole 40 MG Tab.CR PO SCH (07:27)
[2017-02-18] MEDS: Ticagrelor 90 MG Tab PO SCH ×2 (07:27→17:10)
[2017-02-18] MEDS: Docusate Sodium 100 MG Cap PO SCH ×2 (07:29→17:10)
[2017-02-18] MEDS: Folic Acid 1 MG Tab PO SCH (07:30)
[2017-02-18] MEDS: Aspirin 81 MG Tab.EC PO SCH (07:31)
[2017-02-18] MEDS: Allopurinol 100 MG Tab PO SCH (07:33)
[2017-02-18] MEDS: Insulin Aspart 100 Units/ML 3 ML Pen SUBCUT SCH (07:44)
[2017-02-18] MEDS: Metoprolol Succinate 50 MG Tab.ER PO SCH (07:45)
[2017-02-18] MEDS: Cholecalciferol (Vitamin D3) 1,000 Unit Tab PO SCH (07:48)
--- NOTE | 2017-02-18 15:45 | PCM.PN ---
- General Info Date of Service: 02/18/17 Admission Dx/Problem (Free Text): Admission Diagnosis/Problem Admission Diagnosis/Problem Gastrointestinal hemorrhage Functional Status: Reports: pain controlled - Review of Systems General: Reports: Weakness HEENT: Reports: no symptoms Pulmonary: Reports: no symptoms Cardiovascular: Reports: No Symptoms Gastrointestinal: Reports: No symptoms Genitourinary: Reports: no symptoms Musculoskeletal: Reports: no symptoms Skin: Reports: no symptoms Neurological: Reports: No Symptoms Psychiatric: Reports: no symptoms - Patient Data Vitals - most recent: Last Vital Signs Temp 98.2 F 02/18/17 09:00 Pulse 61 02/18/17 09:00 Resp 18 02/18/17 09:00 BP 120/58 L 02/18/17 09:00 Pulse Ox 98 02/18/17 09:00 Weight - most recent: 212 lb 8 oz I&O - last 24 hours: Intake & Output 02/18/17 02/18/17 02/18/17 06:59 14:59 22:59 Intake Total 600 Balance 600 Lab Results last 24 hrs: Laboratory Results - last 24 hr 02/17/17 02/17/17 02/18/17 Range/Units 17:51 20:30 07:39 POC Glucose 238 H 284 H* 233 H (65-110) mg/dl 02/18/17 Range/Units 11:38 POC Glucose 172 H (65-110) mg/dl Med Orders - Current: Current Medications Acetaminophen (Tylenol) 650 mg PO Q4H PRN PRN Reason: analgesia/fever Allopurinol (Zyloprim) 200 mg PO DAILY [facility] Last Admin: 02/18/17 07:33 Dose: 200 mg Aspirin (Halfprin) 81 mg PO DAILY [facility] Last Admin: 02/18/17 07:31 Dose: 81 mg Cholecalciferol (Vitamin D3) 2,000 units PO DAILY [facility] Last Admin: 02/18/17 07:48 Dose: 2,000 units Docusate Sodium (Colace) 100 mg PO BID [facility] Last Admin: 02/18/17 07:29 Dose: 100 mg Folic Acid (Folic Acid) 1 mg PO DAILY [facility] Last Admin: 02/18/17 07:30 Dose: 1 mg Insulin Aspart (Novolog) 14 unit SUBCUT DAILY [facility] Last Admin: 02/18/17 07:44 Dose: 14 units Insulin Detemir (Levemir) 40 unit SUBCUT BEDTIME [facility] Levothyroxine Sodium (Levothyroxine) 75 mcg PO ACBREAKFAST [facility] Last Admin: 02/18/17 07:26 Dose: 75 mcg Magnesium Hydroxide (Milk Of Magnesia) 30 ml PO BID PRN PRN Reason: Constipation Metoprolol Succinate (Toprol Xl) 50 mg PO DAILY [facility] Last Admin: 02/18/17 07:45 Dose: 50 mg Nitroglycerin (Nitrostat) 0.4 mg SL ASDIRECTED PRN PRN Reason: Chest Pain Pantoprazole Sodium (Protonix) 40 mg PO ACBREAKFAST [facility] Last Admin: 02/18/17 07:27 Dose: 40 mg Ticagrelor (Brilinta) 90 mg PO BID [facility] Last Admin: 02/18/17 07:27 Dose: 90 mg Torsemide (Demadex) 30 mg PO DAILY [facility] Last Admin: 02/18/17 07:29 Dose: 30 mg Discontinued Medications Bisacodyl (Dulcolax) 10 mg RECTAL DAILY PRN PRN Reason: Constipation Insulin Detemir (Levemir) 35 unit SUBCUT BEDTIME [facility] Last Admin: 02/17/17 20:13 Dose: 35 units - Exam General: alert, oriented HEENT: Pupils equal, Pupils reactive, EOMI, Mucous membr. moist/pink Neck: supple Lungs: Clear to auscultation, Normal respiratory effort Cardiovascular: Regular Rate, Regular Rhythm Abdomen: bowel sounds present, soft, no tenderness, no distension Extremities: no edema Skin: warm, dry, intact Neurological: no new focal deficit Psy/Mental Status: alert, normal affect, normal mood - Problem List & Annotations (1) Diabetes type 2, uncontrolled SNOMED Code(s): 50354425, 626893841 Code(s): E11.65 - TYPE 2 DIABETES MELLITUS WITH HYPERGLYCEMIA Status: Acute Current Visit: Yes Qualifiers: Diabetes mellitus complication status: with kidney complications - Problem List Review Problem List Initiated/Reviewed/Updated: Yes - My Orders Last 24 Hours: My Active Orders 02/18/17 15:39 CBC WITH AUTO DIFF [HEME] Stat CMP [COMPREHENSIVE METABOLIC PN,CMP] [CHEM] Stat 02/18/17 20:00 Insulin Detemir [Levemir] 40 unit SUBCUT BEDTIME - Plan Plan:: DM type 2 poor control Plan will do cmp cbc also will increase levamir to 40 units q hs..
[2017-02-18] MEDS: Insulin Detemir 100 Units/ML 3 ML Pen SUBCUT SCH (20:17)
[2017-02-19] MEDS: Levothyroxine 75 MCG Tab PO SCH (07:33)
[2017-02-19] MEDS: Pantoprazole 40 MG Tab.CR PO SCH (07:34)
[2017-02-19] MEDS: Insulin Aspart 100 Units/ML 3 ML Pen SUBCUT SCH (07:55)
[2017-02-19] MEDS: Ticagrelor 90 MG Tab PO SCH ×2 (08:01→17:29)
[2017-02-19] MEDS: Docusate Sodium 100 MG Cap PO SCH ×2 (08:01→17:29)
[2017-02-19] MEDS: Folic Acid 1 MG Tab PO SCH (08:02)
[2017-02-19] MEDS: Aspirin 81 MG Tab.EC PO SCH (08:03)
[2017-02-19] MEDS: Metoprolol Succinate 50 MG Tab.ER PO SCH (08:03)
[2017-02-19] MEDS: Allopurinol 100 MG Tab PO SCH (08:04)
[2017-02-19] MEDS: Cholecalciferol (Vitamin D3) 1,000 Unit Tab PO SCH (08:04)
[2017-02-19] MEDS: Insulin Detemir 100 Units/ML 3 ML Pen SUBCUT SCH (20:25)
[2017-02-20] MEDS: Levothyroxine 75 MCG Tab PO SCH (07:20)
[2017-02-20] MEDS: Pantoprazole 40 MG Tab.CR PO SCH (07:20)
[2017-02-20] MEDS: Insulin Aspart 100 Units/ML 3 ML Pen SUBCUT SCH (07:42)
[2017-02-20] MEDS: Ticagrelor 90 MG Tab PO SCH ×2 (07:43→17:26)
[2017-02-20] MEDS: Docusate Sodium 100 MG Cap PO SCH ×2 (07:44→17:26)
[2017-02-20] MEDS: Metoprolol Succinate 50 MG Tab.ER PO SCH (07:45)
[2017-02-20] MEDS: Folic Acid 1 MG Tab PO SCH (07:45)
[2017-02-20] MEDS: Aspirin 81 MG Tab.EC PO SCH (07:45)
[2017-02-20] MEDS: Cholecalciferol (Vitamin D3) 1,000 Unit Tab PO SCH (07:46)
[2017-02-20] MEDS: Allopurinol 100 MG Tab PO SCH (07:47)
[2017-02-20] MEDS: Insulin Detemir 100 Units/ML 3 ML Pen SUBCUT SCH (20:34)
[2017-02-21] MEDS: Levothyroxine 75 MCG Tab PO SCH (06:55)
[2017-02-21] MEDS: Pantoprazole 40 MG Tab.CR PO SCH (06:56)
[2017-02-21] MEDS: Ticagrelor 90 MG Tab PO SCH ×2 (07:37→17:06)
[2017-02-21] MEDS: Docusate Sodium 100 MG Cap PO SCH ×2 (07:38→17:06)
[2017-02-21] MEDS: Aspirin 81 MG Tab.EC PO SCH (07:39)
[2017-02-21] MEDS: Folic Acid 1 MG Tab PO SCH (07:39)
[2017-02-21] MEDS: Metoprolol Succinate 50 MG Tab.ER PO SCH (07:40)
[2017-02-21] MEDS: Cholecalciferol (Vitamin D3) 1,000 Unit Tab PO SCH (07:41)
[2017-02-21] MEDS: Allopurinol 100 MG Tab PO SCH (07:42)
[2017-02-21] MEDS: Insulin Aspart 100 Units/ML 3 ML Pen SUBCUT SCH (07:45)
[2017-02-21] MEDS ORDERED: Sodium Chloride 0.9% 250 ML IV SCH (10:45)
--- NOTE | 2017-02-21 10:47 | PCM.PN ---
- General Info Date of Service: 02/21/17 - Patient Data Vitals - most recent: Last Vital Signs Temp 97.7 F 02/21/17 08:00 Pulse 61 02/21/17 08:00 Resp 16 02/21/17 08:00 BP 117/55 L 02/21/17 08:00 Pulse Ox 98 02/21/17 08:00 Weight - most recent: 212 lb 7.986 oz I&O - last 24 hours: Intake & Output 02/20/17 02/21/17 02/21/17 22:59 06:59 14:59 Intake Total 300 Balance 300 Lab Results last 24 hrs: Laboratory Results - last 24 hr 02/20/17 02/20/17 02/20/17 Range/Units 07:15 11:06 17:25 WBC (4.0-10.2) K/uL RBC (4.33-5.41) M/uL Hgb (13.1-16.8) g/dL Hct (39.0-49.0) % MCV (84.0-98.0) fL MCH (28.2-33.3) pg MCHC (31.7-36.0) g/dL RDW (11.2-14.1) % Plt Count (150-350) K/uL Neut % (Auto) (45.0-80.0) % Lymph % (Auto) (10.0-50.0) % [place] % (Auto) (2.0-14.0) % Eos % (Auto) (0.0-5.0) % Baso % (Auto) (0.0-2.0) % Neut # (Auto) (1.40-7.00) K/uL Lymph # (Auto) (0.50-3.50) K/uL [place] # (Auto) (0.00-1.00) K/uL Eos # (Auto) (0.00-0.50) K/uL Baso # (Auto) (0.00-0.20) K/uL Sodium (136-145) mmol/L Potassium (3.5-5.1) mmol/L Chloride (98-107) mmol/L Carbon Dioxide (21.0-32.0) mmol/L BUN (7-18) mg/dL Creatinine (0.51-1.17) mg/dL Est Cr Clr Drug Dosing mL/min Estimated GFR (MDRD) mL/min Glucose (74-106) mg/dL POC Glucose 93 117 H 270 H* (65-110) mg/dl Calcium (8.5-10.1) mg/dL Total Bilirubin (0.2-1.0) mg/dL AST (15-37) U/L ALT (12-78) U/L Alkaline Phosphatase (46-116) IU/L Total Protein (6.4-8.2) g/dL Albumin (3.4-5.0) g/dL 02/20/17 02/21/17 02/21/17 Range/Units 20:32 06:50 06:50 WBC 8.5 (4.0-10.2) K/uL RBC 2.78 L (4.33-5.41) M/uL Hgb 7.9 L (13.1-16.8) g/dL Hct 24.8 L* (39.0-49.0) % MCV 89.2 (84.0-98.0) fL MCH 28.4 (28.2-33.3) pg MCHC 31.9 (31.7-36.0) g/dL RDW 16.9 H (11.2-14.1) % Plt Count 177 (150-350) K/uL Neut % (Auto) 68.9 (45.0-80.0) % Lymph % (Auto) 18.1 (10.0-50.0) % [place] % (Auto) 10.2 (2.0-14.0) % Eos % (Auto) 2.4 (0.0-5.0) % Baso % (Auto) 0.4 (0.0-2.0) % Neut # (Auto) 5.83 (1.40-7.00) K/uL Lymph # (Auto) 1.53 (0.50-3.50) K/uL [place] # (Auto) 0.86 (0.00-1.00) K/uL Eos # (Auto) 0.20 (0.00-0.50) K/uL Baso # (Auto) 0.03 (0.00-0.20) K/uL Sodium 138 (136-145) mmol/L Potassium 3.8 (3.5-5.1) mmol/L Chloride 99 (98-107) mmol/L Carbon Dioxide 29.9 (21.0-32.0) mmol/L BUN 65 H (7-18) mg/dL Creatinine 2.23 H (0.51-1.17) mg/dL Est Cr Clr Drug Dosing 30.36 mL/min Estimated GFR (MDRD) 29 mL/min Glucose 172 H (74-106) mg/dL POC Glucose 251 H* (65-110) mg/dl Calcium 8.4 L (8.5-10.1) mg/dL Total Bilirubin 0.4 (0.2-1.0) mg/dL AST 35 (15-37) U/L ALT 14 (12-78) U/L Alkaline Phosphatase 141 H (46-116) IU/L Total Protein 8.1 (6.4-8.2) g/dL Albumin 3.4 (3.4-5.0) g/dL Med Orders - Current: Current Medications Acetaminophen (Tylenol) 650 mg PO Q4H PRN PRN Reason: analgesia/fever Allopurinol (Zyloprim) 200 mg PO DAILY [facility] Last Admin: 02/21/17 07:42 Dose: 200 mg Aspirin (Halfprin) 81 mg PO DAILY [facility] Last Admin: 02/21/17 07:39 Dose: 81 mg Cholecalciferol (Vitamin D3) 2,000 units PO DAILY [facility] Last Admin: 02/21/17 07:41 Dose: 2,000 units Docusate Sodium (Colace) 100 mg PO BID [facility] Last Admin: 02/21/17 07:38 Dose: 100 mg Folic Acid (Folic Acid) 1 mg PO DAILY [facility] Last Admin: 02/21/17 07:39 Dose: 1 mg Insulin Aspart (Novolog) 14 unit SUBCUT DAILY [facility] Last Admin: 02/21/17 07:45 Dose: 14 units Insulin Detemir (Levemir) 40 unit SUBCUT BEDTIME [facility] Last Admin: 02/20/17 20:34 Dose: 40 units Levothyroxine Sodium (Levothyroxine) 75 mcg PO ACBREAKFAST [facility] Last Admin: 02/21/17 06:55 Dose: 75 mcg Magnesium Hydroxide (Milk Of Magnesia) 30 ml PO BID PRN PRN Reason: Constipation Metoprolol Succinate (Toprol Xl) 50 mg PO DAILY [facility] Last Admin: 02/21/17 07:40 Dose: 50 mg Nitroglycerin (Nitrostat) 0.4 mg SL ASDIRECTED PRN PRN Reason: Chest Pain Pantoprazole Sodium (Protonix) 40 mg PO ACBREAKFAST [facility] Last Admin: 02/21/17 06:56 Dose: 40 mg Ticagrelor (Brilinta) 90 mg PO BID [facility] Last Admin: 02/21/17 07:37 Dose: 90 mg Torsemide (Demadex) 30 mg PO DAILY [facility] Last Admin: 02/21/17 07:38 Dose: 30 mg Discontinued Medications Bisacodyl (Dulcolax) 10 mg RECTAL DAILY PRN PRN Reason: Constipation Insulin Detemir (Levemir) 35 unit SUBCUT BEDTIME [facility] Last Admin: 02/17/17 20:13 Dose: 35 units - Problem List & Annotations (1) Diabetes type 2, uncontrolled SNOMED Code(s): 43497847, 891221009 Code(s): E11.65 - TYPE 2 DIABETES MELLITUS WITH HYPERGLYCEMIA Status: Acute Current Visit: Yes Qualifiers: Diabetes mellitus complication status: with kidney complications (2) Anemia SNOMED Code(s): 132901611 Code(s): D64.9 - ANEMIA, UNSPECIFIED Status: Chronic Priority: Medium Current Visit: No Qualifiers: Anemia type: iron deficiency Iron deficiency anemia type: chronic blood loss Qualified Code(s): D50.0 - Iron deficiency anemia secondary to blood loss (chronic) Annotation/Comment:: Known history of chronic iron deficiency, folic acid deficiency, and vitamin B-12 deficiency with recent recurrent GI bleeds as above - Problem List Review Problem List Initiated/Reviewed/Updated: Yes - My Orders Last 24 Hours: My Active Orders 02/21/17 10:40 CBC W/O DIFF,HEMOGRAM [HEME] Timed RED BLOOD CELLS LP [BBK] Routine TYPE AND SCREEN [BBK] Routine Furosemide [Lasix] 40 mg IV NOW ONE Blood Transfusion Reflex Orders [OM.PC] Routine Peripheral IV Insertion Adult [OM.PC] Urgent Transfuse Red Blood Cells [COMM] Routine Transfuse Red Blood Cells [COMM] Routine 02/21/17 10:41 Verify Patient Consent Obtain [RC] ASDIRECTED 02/21/17 10:45 Sodium Chloride 0.9% [Normal Saline] 250 ml IV ASDIRECTED - Plan Plan:: Patient is a 81-year-old diabetic well-known to myself seeing because nurses complaining of lethargy CBC done revealed anemia hemoglobin was 8 rechecked 3 days later now 7.9 patient is symptomatic with generalized weakness fatigue malaise Plan we will transfuse him 2 units and recheck his hemoglobin after transfusion
[2017-02-21] MEDS ORDERED: Furosemide 40 MG/4 ML VIAL IV ONE (16:43)
[2017-02-21] MEDS: Insulin Detemir 100 Units/ML 3 ML Pen SUBCUT SCH (19:55)
[2017-02-21] MEDS ORDERED: Sodium Chloride 0.9% 10 ML Syringe FLUSH PRN (21:07)
[2017-02-22] MEDS: Levothyroxine 75 MCG Tab PO SCH (07:14)
[2017-02-22] MEDS: Pantoprazole 40 MG Tab.CR PO SCH (07:14)
[2017-02-22] MEDS: Ticagrelor 90 MG Tab PO SCH ×2 (07:53→17:28)
[2017-02-22] MEDS: Docusate Sodium 100 MG Cap PO SCH ×2 (07:53→17:28)
[2017-02-22] MEDS: Aspirin 81 MG Tab.EC PO SCH (07:54)
[2017-02-22] MEDS: Folic Acid 1 MG Tab PO SCH (07:54)
[2017-02-22] MEDS: Insulin Aspart 100 Units/ML 3 ML Pen SUBCUT SCH (07:58)
[2017-02-22] MEDS: Metoprolol Succinate 50 MG Tab.ER PO SCH (07:59)
[2017-02-22] MEDS: Allopurinol 100 MG Tab PO SCH (08:00)
[2017-02-22] MEDS: Cholecalciferol (Vitamin D3) 1,000 Unit Tab PO SCH (08:00)
[2017-02-22] MEDS: Insulin Detemir 100 Units/ML 3 ML Pen SUBCUT SCH (20:48)
[2017-02-23] MEDS: Pantoprazole 40 MG Tab.CR PO SCH (06:44)
[2017-02-23] MEDS: Levothyroxine 75 MCG Tab PO SCH (06:44)
[2017-02-23] MEDS: Ticagrelor 90 MG Tab PO SCH ×2 (07:22→17:25)
[2017-02-23] MEDS: Docusate Sodium 100 MG Cap PO SCH ×2 (07:22→17:26)
[2017-02-23] MEDS: Folic Acid 1 MG Tab PO SCH (07:25)
[2017-02-23] MEDS: Aspirin 81 MG Tab.EC PO SCH (07:25)
[2017-02-23] MEDS: Metoprolol Succinate 50 MG Tab.ER PO SCH (07:27)
[2017-02-23] MEDS: Cholecalciferol (Vitamin D3) 1,000 Unit Tab PO SCH (07:28)
[2017-02-23] MEDS: Allopurinol 100 MG Tab PO SCH (07:30)
[2017-02-23] MEDS: Insulin Aspart 100 Units/ML 3 ML Pen SUBCUT SCH (07:31)
--- NOTE | 2017-02-23 16:04 | PCM.PN ---
- General Info Date of Service: 02/23/17 Subjective Update: Patient seen secondary to anemia. Patient was symptomatic and was transfused 2 units. At this time I am concerned that after 2 units of blood patient's hemoglobin only christel to 8.5. He's currently asymptomatic and is not ready for discharge. I'm concerned because we do not know the cause of his anemia and are working him up - Review of Systems General: Reports: No Symptoms HEENT: Reports: no symptoms Pulmonary: Reports: no symptoms Cardiovascular: Reports: No Symptoms Gastrointestinal: Reports: No symptoms Musculoskeletal: Reports: no symptoms Skin: Reports: no symptoms Neurological: Reports: No Symptoms Psychiatric: Reports: no symptoms - Patient Data Vitals - most recent: Last Vital Signs Temp 98.0 F 02/23/17 08:00 Pulse 60 02/23/17 08:00 Resp 18 02/23/17 08:00 BP 122/60 02/23/17 08:00 Pulse Ox 97 02/23/17 08:00 Weight - most recent: 210 lb 6.4 oz Lab Results last 24 hrs: Laboratory Results - last 24 hr 02/22/17 02/22/17 02/23/17 Range/Units 16:57 20:47 06:47 POC Glucose 241 H 276 H* 198 H (65-110) mg/dl 02/23/17 Range/Units 11:35 POC Glucose 122 H (65-110) mg/dl Kevin Results last 24 hrs: Microbiology 02/23/17 15:45 Occult Blood - Final Stool / Feces - Stool, Formed Med Orders - Current: Current Medications Acetaminophen (Tylenol) 650 mg PO Q4H PRN PRN Reason: analgesia/fever Allopurinol (Zyloprim) 200 mg PO DAILY [facility] Last Admin: 02/23/17 07:30 Dose: 200 mg Aspirin (Halfprin) 81 mg PO DAILY [facility] Last Admin: 02/23/17 07:25 Dose: 81 mg Cholecalciferol (Vitamin D3) 2,000 units PO DAILY [facility] Last Admin: 02/23/17 07:28 Dose: 2,000 units Docusate Sodium (Colace) 100 mg PO BID [facility] Last Admin: 02/23/17 07:22 Dose: 100 mg Folic Acid (Folic Acid) 1 mg PO DAILY [facility] Last Admin: 02/23/17 07:25 Dose: 1 mg Sodium Chloride (Normal Saline) 250 mls @ 100 mls/hr IV ASDIRECTED [facility] Insulin Aspart (Novolog) 14 unit SUBCUT DAILY [facility] Last Admin: 02/23/17 07:31 Dose: 14 units Insulin Detemir (Levemir) 40 unit SUBCUT BEDTIME [facility] Last Admin: 02/22/17 20:48 Dose: 40 units Levothyroxine Sodium (Levothyroxine) 75 mcg PO ACBREAKFAST [facility] Last Admin: 02/23/17 06:44 Dose: 75 mcg Magnesium Hydroxide (Milk Of Magnesia) 30 ml PO BID PRN PRN Reason: Constipation Metoprolol Succinate (Toprol Xl) 50 mg PO DAILY [facility] Last Admin: 02/23/17 07:27 Dose: 50 mg Nitroglycerin (Nitrostat) 0.4 mg SL ASDIRECTED PRN PRN Reason: Chest Pain Pantoprazole Sodium (Protonix) 40 mg PO ACBREAKFAST [facility] Last Admin: 02/23/17 06:44 Dose: 40 mg Sodium Chloride (Saline Flush) 10 ml FLUSH ASDIRECTED PRN PRN Reason: Keep Vein Open Ticagrelor (Brilinta) 90 mg PO BID [facility] Last Admin: 02/23/17 07:22 Dose: 90 mg Torsemide (Demadex) 30 mg PO DAILY [facility] Last Admin: 02/23/17 07:23 Dose: 30 mg Discontinued Medications Bisacodyl (Dulcolax) 10 mg RECTAL DAILY PRN PRN Reason: Constipation Furosemide (Lasix) 40 mg IV NOW ONE Stop: 02/21/17 16:44 Last Admin: 02/21/17 16:37 Dose: 40 mg Insulin Detemir (Levemir) 35 unit SUBCUT BEDTIME [facility] Last Admin: 02/17/17 20:13 Dose: 35 units - Exam General: alert, oriented HEENT: Pupils equal, Pupils reactive, EOMI, Mucous membr. moist/pink Neck: supple Lungs: Clear to auscultation, Normal respiratory effort Cardiovascular: Regular Rate, Regular Rhythm Abdomen: bowel sounds present, soft, no tenderness, no distension, other ( Rectal exam performed revealed good sphincter tone Hemoccult-negative stool was yellowish brown and watery) (Male) Exam: Deferred Back Exam: Normal Inspection, Full Range of Motion Extremities: no edema Skin: warm, dry, intact Neurological: no new focal deficit Psy/Mental Status: alert, normal affect, normal mood - Problem List & Annotations (1) Diabetes type 2, uncontrolled SNOMED Code(s): 01428844, 766634884 Code(s): E11.65 - TYPE 2 DIABETES MELLITUS WITH HYPERGLYCEMIA Status: Acute Current Visit: Yes Qualifiers: Diabetes mellitus complication status: with kidney complications (2) Anemia SNOMED Code(s): 076676967 Code(s): D64.9 - ANEMIA, UNSPECIFIED Status: Chronic Priority: Medium Current Visit: No Qualifiers: Anemia type: iron deficiency Iron deficiency anemia type: chronic blood loss Qualified Code(s): D50.0 - Iron deficiency anemia secondary to blood loss (chronic) Annotation/Comment:: Known history of chronic iron deficiency, folic acid deficiency, and vitamin B-12 deficiency (3) Myelodysplasia (myelodysplastic syndrome) SNOMED Code(s): 545732679 Code(s): D46.9 - MYELODYSPLASTIC SYNDROME, UNSPECIFIED Status: Acute Current Visit: Yes Annotation/Comment:: At this time we feel the patient has myelodysplastic syndrome are checking for Hemoccult stools first stool was negative for occult blood. - Problem List Review Problem List Initiated/Reviewed/Updated: Yes - My Orders Last 24 Hours: My Active Orders 02/23/17 19:00 OCCULT BLOOD SCREEN [OP] Routine 02/24/17 05:11 CBC WITH AUTO DIFF [HEME] AM 02/24/17 11:13 OCCULT BLOOD SCREEN [OP] Routine - Plan Plan:: Plan this patient is to do Hemoccults 3 CBC in the morning and if we are unable to determine the cause of bleeding will go ahead and refer to hematology for bone marrow biopsy and blood smears
[2017-02-23] MEDS: Insulin Detemir 100 Units/ML 3 ML Pen SUBCUT SCH (21:26)
[2017-02-24] MEDS: Levothyroxine 75 MCG Tab PO SCH (07:55)
[2017-02-24] MEDS: Ticagrelor 90 MG Tab PO SCH ×2 (07:56→17:16)
[2017-02-24] MEDS: Pantoprazole 40 MG Tab.CR PO SCH (07:56)
[2017-02-24] MEDS: Docusate Sodium 100 MG Cap PO SCH ×2 (07:57→17:16)
[2017-02-24] MEDS: Folic Acid 1 MG Tab PO SCH (07:58)
[2017-02-24] MEDS: Aspirin 81 MG Tab.EC PO SCH (07:58)
[2017-02-24] MEDS: Insulin Aspart 100 Units/ML 3 ML Pen SUBCUT SCH (07:59)
[2017-02-24] MEDS: Metoprolol Succinate 50 MG Tab.ER PO SCH (08:03)
[2017-02-24] MEDS: Cholecalciferol (Vitamin D3) 1,000 Unit Tab PO SCH (08:04)
[2017-02-24] MEDS: Allopurinol 100 MG Tab PO SCH (08:05)
[2017-02-24] MEDS: Insulin Detemir 100 Units/ML 3 ML Pen SUBCUT SCH (20:33)
[2017-02-25] MEDS: Levothyroxine 75 MCG Tab PO SCH (07:14)
[2017-02-25] MEDS: Pantoprazole 40 MG Tab.CR PO SCH (07:14)
[2017-02-25] MEDS: Ticagrelor 90 MG Tab PO SCH (08:07)
[2017-02-25] MEDS: Docusate Sodium 100 MG Cap PO SCH (08:07)
[2017-02-25] MEDS: Aspirin 81 MG Tab.EC PO SCH (08:10)
[2017-02-25] MEDS: Folic Acid 1 MG Tab PO SCH (08:10)
[2017-02-25] MEDS: Cholecalciferol (Vitamin D3) 1,000 Unit Tab PO SCH (08:13)
[2017-02-25] MEDS: Allopurinol 100 MG Tab PO SCH (08:14)
[2017-02-25] MEDS: Insulin Aspart 100 Units/ML 3 ML Pen SUBCUT SCH (08:27)
[2017-02-25] MEDS: Metoprolol Succinate 50 MG Tab.ER PO SCH (08:27)
[2017-02-25 10:30] VITALS: BP 133/63
--- NOTE | 2017-02-25 11:31 | PCM.DCSUM1 ---
Discharge Summary - Hospital Course Free Text/Narrative:: Mckinley was admitted to the hospital recently with hyperglycemia diabetes and anemia which was symptomatic- four units of blood were transfused patient responded nicely and was sent home. His hemoglobin dropped again while being in the retirement and again 2 more units were given at this time we'll send him to nephrology because of his kidney functions deteriorating and diabetes and also to consider about starting him on Epogen to keep his hemoglobin elevated. 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 Chronic kidney disease stage: stage 4 (severe) Qualified Code(s): E11.22 - Type 2 diabetes mellitus with diabetic chronic kidney disease; E11.65 - Type 2 diabetes mellitus with hyperglycemia; N18.4 - Chronic kidney disease, stage 4 (severe); Z79.4 - custodial (current) use of insulin (2) Anemia SNOMED Code(s): 414237552 ICD Code: D64.9 - ANEMIA, UNSPECIFIED Status: Chronic Priority: Medium Current Visit: No Problem Details: Known history of chronic iron deficiency, folic acid deficiency, and vitamin B-12 deficiency Qualifiers: Anemia type: iron deficiency Iron deficiency anemia type: chronic blood loss Qualified Code(s): D50.0 - Iron deficiency anemia secondary to blood loss (chronic) (3) Myelodysplasia (myelodysplastic syndrome) SNOMED Code(s): 474040605 ICD Code: D46.9 - MYELODYSPLASTIC SYNDROME, UNSPECIFIED Status: Acute Current Visit: Yes Problem Details: Patient will be sent to nephrology for follow up - Patient Summary/Data Consults: Consultations 02/15/17 17:49 Consult to Occupational Therapy [OT Evaluation and Treatment] [CONS] Routine PT Evaluation and Treatment [CONS] Routine - Patient Instructions Diet: Diabetic Diet Activity: As Tolerated Driving: May Drive Today Showering/Bathing: May Shower Notify Provider of: Fever, Increased Pain, Swelling and Redness, Nausea and/or Vomiting - Discharge Plan Home Medications: Home Meds Allopurinol [Zyloprim] 200 mg PO DAILY 04/25/15 [History] Aspirin [Halfprin] 81 mg PO DAILY 04/25/15 [History] Folic Acid 1 mg PO DAILY 04/25/15 [History] Torsemide 30 mg PO DAILY 04/25/15 [History] Levothyroxine 75 mcg PO ACBREAKFAST #30 tablet 06/11/15 [Rx] Insulin Detemir [Levemir] 35 unit SUBCUT BEDTIME 10/16/15 [History] Cholecalciferol (Vitamin D3) [Vitamin D3] 2,000 unit PO DAILY 01/25/17 [History] Insulin Aspart [Novolog Flexpen] 14 units SUBCUT DAILY 01/25/17 [History] Metoprolol Succinate [Toprol XL] 50 mg PO DAILY 01/25/17 [History] Nitroglycerin [Nitrostat] 0.4 mg SL ASDIRECTED PRN 01/25/17 [History] Ticagrelor [Brilinta] 90 mg PO BID 01/25/17 [History] Docusate Sodium [Colace] 100 mg PO BID 02/15/17 [History] Emollient Base [Emollient] 1 applic TOP BID 02/15/17 [History] Pantoprazole [ProTONIX] 40 mg PO ACBREAKFAST 02/15/17 [History] Referrals: Ivette Waller PA-C [Ordering Only Provider] - 03/21/17 10:30 am (Cardiology at 1030 am at [facility] ) Jana Diaz NP [Ordering Only Provider] - 03/18/17 10:30 am (Nephrology Appointment on 03-18-17 at 10:30. Talk to provider about low hemoglobin and possibly starting you on Epogen. Patient has had 6 units of blood recently related to low hemoglobin. ) Lynda Crane NP [Ordering Only Provider] - 04/20/17 9:30 am ( Gastroenterology Appointment on 04-20-17 at 9:30am ) João Chavez MD [ED Physician] - 03/02/17 10:00 am (Follow up post swingbed visit with Dr. João Chavez at [facility] on 03-02-17 at 10am. ) - Discharge Summary/Plan Comment DC Time >30 min.: No - General Info Date of Service: 02/25/17 - Review of Systems General: Reports: No Symptoms HEENT: Reports: no symptoms Pulmonary: Reports: no symptoms Cardiovascular: Reports: No Symptoms Gastrointestinal: Reports: No symptoms Genitourinary: Reports: no symptoms Musculoskeletal: Reports: no symptoms Skin: Reports: no symptoms Neurological: Reports: No Symptoms Psychiatric: Reports: no symptoms - Patient Data Vitals - Most Recent: Last Vital Signs Temp 96.5 F 02/25/17 08:00 Pulse 0 L 02/25/17 08:27 Resp 17 02/25/17 08:00 BP 0/0 L 02/25/17 08:27 Pulse Ox 99 02/25/17 08:00 Weight - Most Recent: 210 lb 6.4 oz Lab Results - Last 24 hrs: Laboratory Results - last 24 hr 02/24/17 02/24/17 02/24/17 Range/Units 12:02 17:19 20:32 POC Glucose 184 H 301 H* 376 H* (65-110) mg/dl 02/25/17 Range/Units 07:16 POC Glucose 197 H (65-110) mg/dl [id number] Results - Last 24 hrs: Microbiology 02/24/17 15:30 Occult Blood - Final Stool / Feces Med Orders - Current: Current Medications Acetaminophen (Tylenol) 650 mg PO Q4H PRN PRN Reason: analgesia/fever Allopurinol (Zyloprim) 200 mg PO DAILY [facility] Last Admin: 02/25/17 08:14 Dose: 200 mg Aspirin (Halfprin) 81 mg PO DAILY [facility] Last Admin: 02/25/17 08:10 Dose: 81 mg Cholecalciferol (Vitamin D3) 2,000 units PO DAILY [facility] Last Admin: 02/25/17 08:13 Dose: 2,000 units Docusate Sodium (Colace) 100 mg PO BID [facility] Last Admin: 02/25/17 08:07 Dose: 100 mg Folic Acid (Folic Acid) 1 mg PO DAILY [facility] Last Admin: 02/25/17 08:10 Dose: 1 mg Sodium Chloride (Normal Saline) 250 mls @ 100 mls/hr IV ASDIRECTED [facility] Insulin Aspart (Novolog) 14 unit SUBCUT DAILY [facility] Last Admin: 02/25/17 08:27 Dose: 14 units Insulin Detemir (Levemir) 40 unit SUBCUT BEDTIME [facility] Last Admin: 02/24/17 20:33 Dose: 40 units Levothyroxine Sodium (Levothyroxine) 75 mcg PO ACBREAKFAST [facility] Last Admin: 02/25/17 07:14 Dose: 75 mcg Magnesium Hydroxide (Milk Of Magnesia) 30 ml PO BID PRN PRN Reason: Constipation Metoprolol Succinate (Toprol Xl) 50 mg PO DAILY [facility] Last Admin: 02/25/17 08:27 Dose: 50 mg Nitroglycerin (Nitrostat) 0.4 mg SL ASDIRECTED PRN PRN Reason: Chest Pain Pantoprazole Sodium (Protonix) 40 mg PO ACBREAKFAST [facility] Last Admin: 02/25/17 07:14 Dose: 40 mg Sodium Chloride (Saline Flush) 10 ml FLUSH ASDIRECTED PRN PRN Reason: Keep Vein Open Ticagrelor (Brilinta) 90 mg PO BID [facility] Last Admin: 02/25/17 08:07 Dose: 90 mg Torsemide (Demadex) 30 mg PO DAILY [facility] Last Admin: 02/25/17 08:09 Dose: 30 mg Discontinued Medications Bisacodyl (Dulcolax) 10 mg RECTAL DAILY PRN PRN Reason: Constipation Furosemide (Lasix) 40 mg IV NOW ONE Stop: 02/21/17 16:44 Last Admin: 02/21/17 16:37 Dose: 40 mg Insulin Detemir (Levemir) 35 unit SUBCUT BEDTIME [facility] Last Admin: 02/17/17 20:13 Dose: 35 units - Exam General: Reports: alert, oriented HEENT: Reports: Pupils equal, Pupils reactive, EOMI, Mucous membr. moist/pink Neck: Reports: supple Lungs: Reports: Clear to auscultation, Normal respiratory effort Cardiovascular: Reports: Regular Rate, Regular Rhythm Abdomen: Reports: bowel sounds present, soft, no tenderness, no distension (Male) Exam: Deferred Rectal (Males) Exam: Deferred Back Exam: Reports: Normal Inspection, Full Range of Motion Extremities: Reports: no edema, normal pulses Skin: Reports: warm, dry, intact Neurological: Reports: no new focal deficit Psy/Mental Status: Reports: alert, normal affect, normal mood *Q Meaningful Use (DIS) - VTE *Q VTE Criteria *Q: - Stroke *Q Stroke Criteria *Q: - AMI *Q AMI Criteria *Q:
== END 2017-02-25 13:05 | disposition home health service (06) | DRG 378 ==
LOC: LL.SWG 16:15
PROVIDERS: ADMIT Emergency Medicine; ATTEND Family Medicine
PROC: 30253N1 (ICD-10-PCS; principal; 2017-02-21)
DX: K92.2 Gastrointestinal hemorrhage, unspecified (principal); N18.4 Chronic kidney disease, stage 4 (severe); I50.22 Chronic systolic (congestive) heart failure; D50.0 Iron deficiency anemia secondary to blood loss (chronic); E11.22 Type 2 diabetes mellitus with diabetic chronic kidney disease; E11.65 Type 2 diabetes mellitus with hyperglycemia; Z79.4 Long term (current) use of insulin; D46.9 Myelodysplastic syndrome, unspecified; K21.9 Gastro-esophageal reflux disease without esophagitis; G30.9 Alzheimer's disease, unspecified; F02.80 Dementia in other diseases classified elsewhere, unspecified severity, without behavioral disturbance, psychotic disturbance, mood disturbance, and anxiety; E03.9 Hypothyroidism, unspecified; Z95.0 Presence of cardiac pacemaker; G25.0 Essential tremor; E55.9 Vitamin D deficiency, unspecified; N40.0 Benign prostatic hyperplasia without lower urinary tract symptoms; I25.10 Atherosclerotic heart disease of native coronary artery without angina pectoris; I48.2 Chronic atrial fibrillation; E78.2 Mixed hyperlipidemia; E34.9 Endocrine disorder, unspecified; M79.672 Pain in left foot
CPT/HCPCS: 36415; 36430; 80048; 80053; 82270; 82962; 85025; 85027; 86850; 86900; 86901; 86920; 86922; 97110-GO; 97110-GP; 97112-GP; 97116-GP; 97161-GP; 97165-GO; 97530-GO; A9270-GY; J1815-GY; J1940; P9016

== ENCOUNTER 2017-07-18 10:30 | Inpatient (IN) | payer MEDICARE, BC ==
[2017-07-18 11:33] LABS: CHLORIDE,CL 101 mmol/L (98-107); SODIUM,NA 137 mmol/L (136-145)
[2017-07-18] MEDS ORDERED: Nitroglycerin 0.4 MG Tab.SL SL PRN (12:57)
--- NOTE | 2017-07-18 13:08 | PCM.HP ---
H&P History of Present Illness - General Date of Service: 07/18/17 Admit Problem/Dx: Admission Diagnosis/Problem Admission Diagnosis/Problem Leukocytosis Source of Information: Patient History Limitations: Reports: No Limitations - History of Present Illness Onset of Symptoms: Reports: Gradual Symptom Onset Date: 06/20/17 (patient report weakness for over 1 month) Duration of Symptoms: Reports: Getting Worse Location: Reports: Generalized, Other Improves with: Reports: None Worsens with: Reports: Movement Associated Symptoms: Reports: Headaches, Other (fatigue) - Related Data Allergies/Adverse Reactions: Allergies Allergy/AdvReac Type Severity Reaction Status Date / Time No Known Allergies Allergy Verified 06/09/15 17:53 Home Medications: Home Meds Allopurinol [Zyloprim] 200 mg PO DAILY 04/25/15 [History] Aspirin [Halfprin] 81 mg PO DAILY 04/25/15 [History] Folic Acid 1 mg PO DAILY 04/25/15 [History] Torsemide 20 mg PO DAILY 04/25/15 [History] Levothyroxine 75 mcg PO ACBREAKFAST #30 tablet 06/11/15 [Rx] Insulin Detemir [Levemir] 20 unit SUBCUT DAILY 10/16/15 [History] Cholecalciferol (Vitamin D3) [Vitamin D3] 2,000 unit PO DAILY 01/25/17 [History] Insulin Aspart [Novolog Flexpen] 10 units SUBCUT DAILY 01/25/17 [History] Metoprolol Succinate [Toprol XL] 50 mg PO DAILY 01/25/17 [History] Nitroglycerin [Nitrostat] 0.4 mg SL ASDIRECTED PRN 01/25/17 [History] Ticagrelor [Brilinta] 90 mg PO BID 01/25/17 [History] Pantoprazole [ProTONIX] 40 mg PO ACBREAKFAST 02/15/17 [History] Ferrous Sulfate 325 mg PO DAILY 07/18/17 [History] rOPINIRole HCl [Requip] 0.25 mg PO DAILY 07/18/17 [History] Past Medical History - Past Health History Medical/Surgical History: Denies Medical/Surgical History HEENT History: Reports: Cataract, Hard of Hearing, Impaired Vision, Other (See Below) Other HEENT History: Bilateral hearing aids, patient wears reading glasses Cardiovascular History: Reports: Afib, Arrhythmia, CAD, Cardiomyopathy, Heart Failure, Heart Murmur, Hypertension, Pacemaker, PTCA, Pulmonary Hypertension, Stents Other Cardiovascular History: Cardiac surgeries as below, cardiomegaly by chest x-ray with history of CHF and atrial fibrillation, no history of TN despite previous PTCA/stent 1, severe cardiomyopathy with ejection fraction of only 25- 30% at time of last echocardiogram on 10/15/16 with additional moderate aortic valve stenosis, mitral valve insufficiency, tricuspid valve insufficiency, and pulmonary hypertension, dyslipidemia Respiratory History: Reports: Bronchitis, Recurrent, COPD, Intubation, Previous , Other (See Below) Other Respiratory History: COPD by chest x-ray with no current medical therapy Gastrointestinal History: Reports: Diverticulosis, GERD, GI Bleed, Hepatitis, Other (See Below) Other Gastrointestinal History: Severe diverticulosis by colonoscopy with no history of diverticulitis, history of hepatic cirrhosis and ascites by CT scan with splenomegaly by CT scan Genitourinary History: Reports: BPH, Chronic Renal Insuffiency, Diabetic Nephropathy, Urinary Incontinence, Other (See Below) Other Genitourinary History: Stage IV chronic renal insufficiency with bilateral renal atrophy by distant ultrasound Musculoskeletal History: Reports: Arthritis, Back Pain, Chronic, Fracture, Gout , Neck Pain, Chronic, Osteoarthritis, Osteoporosis Other Musculoskeletal History: History of left clavicular fracture at about age 17 with no surgery required, hyperuricemia without history of gout attacks, 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 on 06/02/16 Neurological History: Reports: Alzheimers Disease, Neuropathy, Diabetic, Neuropathy, Peripheral, Other (See Below) Other Neuro History: Chronic familial resting tremor, 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, mild organic brain syndrome Psychiatric History: Reports: Alzheimers Disease, Dementia, Other (See Below) Other Psychiatric History: Mild organic brain syndrome Endocrine/Metabolic History: Reports: Diabetes, Type II, Hypothyroidism, IDDM, Osteoporosis, Vitamin D Deficiency Hematologic History: Reports: Anticoagulation Therapy, B12 Deficiency, Blood Transfusion(s), Folic Acid, Iron Deficiency, Other (See Below) Other Hematologic History: Blood transfusion of 4 units of packed red blood cells during hospitalization in this facility on 01/25/17 through 01/27/17, chronic Coumadin therapy for atrial fibrillation. Continues to have chronic anemia and low iron count even while on Oral iron supplementation Immunologic History: Reports: None Oncologic (Cancer) History: Reports: None Dermatologic History: Reports: None - Infectious Disease History Infectious Disease History: Reports: Chicken Pox, Mumps. Denies: C-Difficile, Measles, Meningitis, Mononucleosis, MRSA, Pertussis (Whooping Cough), Rheumatic Fever, Rubella, Scarlet Fever, Shingles, VRE - Past Surgical History Head Surgeries/Procedures: Reports: None HEENT Surgical History: Reports: Adenoidectomy, Cataract Surgery, Oral Surgery, Tonsillectomy, Other (See Below) Other HEENT Surgeries/Procedures: Multiple teeth extractions with lower partials , tonsillectomy and adenoidectomy at about age 14?, bilateral cataract surgery in about 1999? Cardiovascular Surgical History: Reports: Coronary Artery Stent, Pacer, Percutaneous Transluminal Angioplasty, Other (See Below) Other Cardiovascular Surgeries/Procedures: Pacemaker placement in 2003 secondary to cardiac dysfunction with history of pacemaker generator replacement on 10/28/12 and 10/31/06, PTCA/stent 1 of the proximal LAD on 01/11/17 , unsuccessful previous cardioversion for atrial fibrillation Respiratory Surgical History: Reports: None GI Surgical History: Reports: Appendectomy, Colonoscopy, Hernia, Abdominal, Other (See Below) Other GI Surgeries/Procedures: Appendectomy at about age 15, abdominal ventral hernia repair in about 2003 versus the with patient uncertain,colonoscopy last on 11/30/12 and a paracentesis of abdominal ascites on 12/30/01 Male Surgical History: Reports: None Endocrine Surgical History: Reports: None Neurological Surgical History: Reports: Discectomy, Laminectomy, Thoracic Spine , Other (See Below) Other Neurological Surgeries/Procedures: Possible laminectomy in the thoracic spine in his 50s Musculoskeletal Surgical History: Reports: None, Other (See Below) Other Musculoskeletal Surgeries/Procedures:: Spinal surgery for cervical radiculopathy. Oncologic Surgical History: Reports: None Dermatological Surgical History: Reports: None - Past Imaging History Past Imaging History: Reports: Angiography (Last heart catheterization on with previous evaluation on 04/30/13), Cardiac Echo (Last echocardiogram on 10/15/16 with findings as above with previous echocardiogram on 10/31/12 showing ejection fraction of 50%), CAT Scan (Last CT scan of the abdomen and pelvis on with previous evaluation on 12/17/11, CT of the left hip on 11/08/12), PFT ( 12/05/12 and 07/20/12), Stress Testing (Last Cardiolite stress test on 11/12/16), Ultrasound (Limited abdominal ultrasound on 01/05/14, renal ultrasound on 01/30/13 ), Upper GI X-Ray/Series (11/13/12), Venous Doppler (Right leg on 06/02/16) Social & Family History - Family History Cardiac: Reports: Other (See Below) Other Cardiac Family History: Son with fatal TN at age 42, daughter with fatal TN at age 41, mother with pacemaker, 4 maternal uncles with fatal MIs 2 in their 50s with the other 2 in their 70s, sister with CABG initially in her early 60s with fatal TN/CABG at about age 65, 2 maternal cousins with fatal MIs in their 50s Oncologic: Reports: Other (See Below) Other Oncologic Family History: Maternal cousin with possible lung cancer secondary to tobacco use - Tobacco Use Smoking Status *Q: Never Smoker Years of Tobacco use: 35 Packs/Tins Daily: 0.5 (Mode between ages 17 and 52) Used Tobacco, but Quit: Yes Month Tobacco Last Used: As above Second Hand Smoke Exposure: Yes - Caffeine Use Caffeine Use: Reports: Coffee Other Caffeine Use: One cup a day of coffee. 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[employer]) H&P Review of Systems - Review of Systems: Review Of Systems: See Below General: Reports: Weakness, Fatigue HEENT: Reports: Headaches (due to right sided neck pain) Pulmonary: Reports: Shortness of Breath Cardiovascular: Reports: Palpitations Gastrointestinal: Reports: Decreased Appetite Genitourinary: Reports: Incontinence Musculoskeletal: Reports: Neck Pain Skin: Reports: No Symptoms Psychiatric: Reports: No Symptoms Neurological: Reports: Headache, Tremors, Difficulty Walking, Weakness Hematologic/Lymphatic: Reports: Anemia Exam - Exam Exam: See Below - Exam General: Alert, Oriented HEENT: Conjunctiva Clear, Hearing Intact, Mucosa Moist & [place], Nares Patent, Normal Nasal Septum, Posterior Pharynx Clear, Pupils Equal, Pupils Reactive, TMs Clear Neck: Supple, Trachea Midline Lungs: Decreased Breath Sounds Cardiovascular: Regular Rate, Regular Rhythm, Systolic Murmur GI/Abdominal Exam: Normal Bowel Sounds, Soft, Non-Tender (Male) Exam: Deferred Rectal (Males) Exam: Deferred Back Exam: Normal Inspection, CVA Tenderness (R) Extremities: Normal Inspection, No Pedal Edema Skin: Warm, Dry, Intact Neuro Extensive - Mental Status: Alert, Oriented x3, Normal Mood/Affect Psychiatric: Alert, Normal Affect - Patient Data Lab Results Last 24 hrs: Laboratory Results - last 24 hr 07/18/17 07/18/17 07/18/17 Range/Units 10:51 10:51 10:51 WBC 21.9 H (4.0-10.2) K/uL RBC 2.96 L (4.33-5.41) M/uL Hgb 8.9 L (13.1-16.8) g/dL Hct 27.2 L (39.0-49.0) % MCV 91.9 (84.0-98.0) fL MCH 30.1 (28.2-33.3) pg MCHC 32.7 (31.7-36.0) g/dL RDW 17.3 H (11.2-14.1) % Plt Count 191 (150-350) K/uL Neut % (Auto) 78.6 (45.0-80.0) % Lymph % (Auto) 8.9 L (10.0-50.0) % [place] % (Auto) 7.7 (2.0-14.0) % Eos % (Auto) 4.4 (0.0-5.0) % Baso % (Auto) 0.4 (0.0-2.0) % Neut # (Auto) 17.20 H (1.40-7.00) K/uL Lymph # (Auto) 1.94 (0.50-3.50) K/uL [place] # (Auto) 1.69 H (0.00-1.00) K/uL Eos # (Auto) 0.97 H (0.00-0.50) K/uL Baso # (Auto) 0.09 (0.00-0.20) K/uL Sodium 137 (136-145) mmol/L Potassium 4.2 (3.5-5.1) mmol/L Chloride 101 (98-107) mmol/L Carbon Dioxide 23.5 (21.0-32.0) mmol/L BUN 72 H (7-18) mg/dL Creatinine 2.41 H (0.51-1.17) mg/dL Est Cr Clr Drug Dosing TNP Estimated GFR (MDRD) 26 mL/min Glucose 174 H (74-106) mg/dL Lactic Acid (0.4-2.0) mmol/L Calcium 9.6 (8.5-10.1) mg/dL Iron 41 L (50-175) ug/dL TIBC 235 L (250-450) ug/dL % Saturation [id number] Ferritin 304 (8-388) ng/mL Total Bilirubin 0.6 (0.2-1.0) mg/dL AST 36 (15-37) U/L ALT 13 (12-78) U/L Alkaline Phosphatase 216 H (46-116) IU/L Total Protein 7.2 (6.4-8.2) g/dL Albumin 3.2 L (3.4-5.0) g/dL 07/18/17 Range/Units 11:43 WBC (4.0-10.2) K/uL RBC (4.33-5.41) M/uL Hgb (13.1-16.8) g/dL Hct (39.0-49.0) % MCV (84.0-98.0) fL MCH (28.2-33.3) pg MCHC (31.7-36.0) g/dL RDW (11.2-14.1) % Plt Count (150-350) K/uL Neut % (Auto) (45.0-80.0) % Lymph % (Auto) (10.0-50.0) % [place] % (Auto) (2.0-14.0) % Eos % (Auto) (0.0-5.0) % Baso % (Auto) (0.0-2.0) % Neut # (Auto) (1.40-7.00) K/uL Lymph # (Auto) (0.50-3.50) K/uL [place] # (Auto) (0.00-1.00) K/uL Eos # (Auto) (0.00-0.50) K/uL Baso # (Auto) (0.00-0.20) K/uL Sodium (136-145) mmol/L Potassium (3.5-5.1) mmol/L Chloride (98-107) mmol/L Carbon Dioxide (21.0-32.0) mmol/L BUN (7-18) mg/dL Creatinine (0.51-1.17) mg/dL Est Cr Clr Drug Dosing Estimated GFR (MDRD) mL/min Glucose (74-106) mg/dL Lactic Acid 1.9 (0.4-2.0) mmol/L Calcium (8.5-10.1) mg/dL Iron (50-175) ug/dL TIBC (250-450) ug/dL % Saturation Ferritin (8-388) ng/mL Total Bilirubin (0.2-1.0) mg/dL AST (15-37) U/L ALT (12-78) U/L Alkaline Phosphatase (46-116) IU/L Total Protein (6.4-8.2) g/dL Albumin (3.4-5.0) g/dL Result Diagrams: 07/18/17 10:51 07/18/17 10:51 *Q Meaningful Use (ADM) - VTE *Q VTE Criteria *Q: - Stroke *Q Stroke Criteria *Q: - AMI *Q AMI Criteria *Q: - Problem List (1) Leukocytosis SNOMED Code(s): 574762708 ICD Code: D72.829 - ELEVATED WHITE BLOOD CELL COUNT, UNSPECIFIED Status: Acute Current Visit: Yes Onset Date: ~07/18/17 Qualifiers: Leukocytosis type: monocytosis Qualified Code(s): D72.821 - Monocytosis ( symptomatic) (2) Generalized weakness SNOMED Code(s): 80601464 ICD Code: R53.1 - WEAKNESS Status: Acute Priority: High Current Visit: No Problem Details: Worsened since recent bout with blood loss/anemia. Admit for PT/OT. Problem List Initiated/Reviewed/Updated: Yes Orders Last 24hrs: Active Orders 24 hr Category Date Time Status Admission Diagnosis [ADT] Urgent ADT 07/18/17 12:50 Ordered Admission Status [Patient Status] [ADT] Routine ADT 07/18/17 12:50 Ordered Antiembolic Devices [RC] PER UNIT ROUTINE Care 07/18/17 12:39 Ordered Blood Glucose Check, Bedside [RC] TIDMEALS Care 07/18/17 12:45 Ordered Daily Weight [Height and Weight] [RC] DAILY Care 07/18/17 13:00 Ordered Vital Signs [RC] Q6H Care 07/18/17 12:39 Ordered ADA Diabetic [[place] [employer] Diet] [DIET Diet 07/18/17 Dinner Ordered ] Chest 2V [CR] Routine Exams 07/18/17 Taken BASIC METABOLIC PANEL,BMP [CHEM] Routine Lab 07/19/17 06:00 Ordered CBC WITH AUTO DIFF [HEME] Routine Lab 07/19/17 06:00 Ordered LACTIC ACID [CHEM] Routine Lab 07/19/17 06:00 Ordered Aspirin [Halfprin] Med 07/19/17 08:00 Ordered 81 mg PO DAILY Cholecalciferol (Vitamin D3) [Vitamin D3] Med 07/19/17 08:00 Ordered 2,000 unit PO DAILY Ferrous Sulfate Med 07/19/17 08:00 Ordered 325 mg PO DAILY Folic Acid Med 07/19/17 08:00 Ordered 1 mg PO DAILY Insulin Aspart [NovoLOG] Med 07/18/17 17:30 Ordered See Protocol SUBCUT TIDAC Insulin Detemir [Levemir] Med 07/19/17 08:00 Ordered 20 unit SUBCUT DAILY Levothyroxine Med 07/19/17 07:30 Ordered 75 mcg PO ACBREAKFAST Lidocaine 5% [Lidoderm 5%] Med 07/18/17 13:00 Ordered 700 mg TOP DAILY Linezolid [Zyvox] 600 mg Med 07/18/17 14:00 Ordered Premix Bag 1 bag IV Q12HR Metoprolol Succinate [Toprol XL] Med 07/19/17 08:00 Ordered 50 mg PO DAILY Nitroglycerin [Nitrostat] Med 07/18/17 12:57 Ordered 0.4 mg SL ASDIRECTED PRN Pantoprazole [ProTONIX] Med 07/19/17 07:30 Ordered 40 mg PO ACBREAKFAST Piperacillin/Tazobactam [Zosyn] 3.375 gm Med 07/18/17 13:00 Ordered Sodium Chloride 0.9% [Normal Saline] 100 ml IV Q6H Ticagrelor [Brilinta] Med 07/18/17 18:00 Ordered 90 mg PO BID Torsemide [Torsemide] Med 07/19/17 08:00 Ordered 20 mg PO DAILY rOPINIRole [Requip] Med 07/19/17 08:00 Ordered 0.25 mg PO DAILY JERALD Hose [Antiembolic Hose] [OM.PC] Routine Oth 07/18/17 12:39 Ordered Resuscitation Status Routine Resus Stat 07/18/17 12:59 Ordered Medication Orders Aspirin (Halfprin) 81 mg PO DAILY [facility] Ferrous Sulfate (Ferrous Sulfate) 325 mg PO DAILY [facility] Folic Acid (Folic Acid) 1 mg PO DAILY [facility] Linezolid 600 mg/ Premix 300 mls @ 150 mls/hr IV Q12HR [facility] Piperacillin Sod/Tazobactam (Sod 3.375 gm/ Sodium Chloride) 100 mls @ 200 mls/ hr IV Q6H [facility] Insulin Aspart (Novolog) 0 unit SUBCUT TIDAC [facility] PRN Reason: Protocol Insulin Detemir (Levemir) 20 unit SUBCUT DAILY [facility] Levothyroxine Sodium (Levothyroxine) 75 mcg PO ACBREAKFAST [facility] Lidocaine (Lidoderm 5%) 700 mg TOP DAILY [facility] Nitroglycerin (Nitrostat) 0.4 mg SL ASDIRECTED PRN PRN Reason: Chest Pain Non-Formulary Medication (Cholecalciferol (Vitamin D3) [Vitamin D3]) 2,000 unit PO DAILY [facility] Non-Formulary Medication (Metoprolol Succinate [Toprol Xl]) 50 mg PO DAILY [facility] Non-Formulary Medication (Ticagrelor [Brilinta]) 90 mg PO BID [facility] Non-Formulary Medication (Torsemide [Torsemide]) 20 mg PO DAILY [facility] Pantoprazole Sodium (Protonix) 40 mg PO ACBREAKFAST [facility] Ropinirole HCl (Requip) 0.25 mg PO DAILY [facility] Assessment/Plan Comment:: Patient seen in clinic for weakness and leukocytosis. He had fallen 2 days ago and couldn't get up. He has had progressive weakness for the past month. He has chronic anemia which a low HGB, HCT and iron levels. He will be admitted for IV antibiotics for leukocytosis under Dr. Chavez to follow. Zosyn 3.375mg every 6 hours and Zyvox 600mg BID will be given. Lactic acid level is on the high side of normal. Will recheck labs in the AM and monitor for improvement. Will refer for PT/OT evaluation.
[2017-07-18] MEDS ORDERED: Magnesium Hydroxide 400 MG/5 ML Susp 30 ML Cup PO PRN (13:20)
[2017-07-18] MEDS: Lidocaine 5% 700 MG Patch TOP SCH (13:48)
[2017-07-18] MEDS: Piperacillin/Tazobactam 3.375 GM in Sodium Chloride 0.9% 100 ML IV SCH ×2 (13:48→19:52)
[2017-07-18] MEDS ORDERED: FLU Vacc TS 2017-18 (65yr UP)/PF 180 MCG/0.5 ML Syringe IM ONE (14:15)
[2017-07-18] MEDS: Linezolid 600 MG in Premix Bag 1 BAG IV SCH (14:24)
[2017-07-18] MEDS: Sodium Chloride 0.9% 10 ML Syringe FLUSH PRN ×2 (14:24→19:53)
[2017-07-18] MEDS: Acetaminophen 325 MG Tab PO PRN ×2 (16:28→21:06)
[2017-07-18] MEDS: Ticagrelor 90 MG Tab PO SCH (17:40)
[2017-07-18] MEDS: Insulin Aspart 100 Units/ML 3 ML Pen SUBCUT SCH (17:40)
[2017-07-18] MEDS ORDERED: Sodium Chloride 0.9% 10 ML Syringe FLUSH SCH (20:00)
[2017-07-18] MEDS: traMADol 50 MG Tab PO PRN (21:06)
[2017-07-19] MEDS: Ondansetron 4 MG/2 ML SDV IVPUSH PRN (00:16)
[2017-07-19] MEDS: Piperacillin/Tazobactam 3.375 GM in Sodium Chloride 0.9% 100 ML IV SCH ×3 (00:24→12:05)
[2017-07-19] MEDS ORDERED: Famotidine 20 MG/2 ML SDV IVPUSH ONE (01:00)
[2017-07-19] MEDS: Linezolid 600 MG in Premix Bag 1 BAG IV SCH ×2 (01:06→14:13)
[2017-07-19] MEDS: Pantoprazole 40 MG Vial IVPUSH SCH ×3 (01:06→23:22)
[2017-07-19] MEDS: Insulin Aspart 100 Units/ML 3 ML Pen SUBCUT SCH ×4 (07:29→17:17)
[2017-07-19] MEDS ORDERED: Pantoprazole 40 MG Tab.CR PO SCH (07:30)
[2017-07-19] MEDS: Levothyroxine 75 MCG Tab PO SCH (07:31)
[2017-07-19] MEDS: Ferrous Sulfate 325 MG Tab PO SCH (07:32)
[2017-07-19] MEDS: Ticagrelor 90 MG Tab PO SCH (07:32)
[2017-07-19] MEDS: Aspirin 81 MG Tab.EC PO SCH (07:32)
[2017-07-19] MEDS: Insulin Detemir 100 Units/ML 3 ML Pen SUBCUT SCH ×2 (07:32→08:37)
[2017-07-19] MEDS: Folic Acid 1 MG Tab PO SCH (07:32)
[2017-07-19] MEDS: Metoprolol Succinate 50 MG Tab.ER PO SCH (07:34)
[2017-07-19] MEDS: Lidocaine 5% 700 MG Patch TOP SCH (07:34)
[2017-07-19] MEDS: Cholecalciferol (Vitamin D3) 1,000 Unit Tab PO SCH (07:34)
[2017-07-19] MEDS: rOPINIRole 0.25 MG Tab PO SCH (07:34)
[2017-07-19] MEDS: traMADol 50 MG Tab PO PRN (08:10)
[2017-07-19] MEDS ORDERED: Furosemide 40 MG/4 ML VIAL IV ONE (10:24)
--- NOTE | 2017-07-19 10:27 | PCM.PN ---
- General Info Date of Service: 07/19/17 - Review of Systems General: Reports: Weakness, Fatigue HEENT: Reports: No Symptoms Pulmonary: Reports: No Symptoms Cardiovascular: Reports: No Symptoms Gastrointestinal: Reports: Nausea, Vomiting Genitourinary: Reports: No Symptoms Musculoskeletal: Reports: No Symptoms, Other (generalized weakness ) Skin: Reports: No Symptoms Neurological: Reports: No Symptoms Psychiatric: Reports: No Symptoms - Patient Data Vitals - Most Recent: Last Vital Signs Temp 97.5 F 07/19/17 06:00 Pulse 60 07/19/17 07:34 Resp 16 07/19/17 06:00 BP 120/60 07/19/17 07:34 Pulse Ox 97 07/19/17 06:00 Weight - Most Recent: 200 lb 7.003 oz I&O - Last 24 Hours: Intake & Output 07/18/17 07/19/17 07/19/17 22:59 06:59 14:59 Intake Total 120 120 Balance 120 120 Lab Results Last 24 Hours: Laboratory Results - last 24 hr 07/18/17 07/18/17 07/18/17 Range/Units 10:51 10:51 10:51 WBC 21.9 H (4.0-10.2) K/uL RBC 2.96 L (4.33-5.41) M/uL Hgb 8.9 L (13.1-16.8) g/dL Hct 27.2 L (39.0-49.0) % MCV 91.9 (84.0-98.0) fL MCH 30.1 (28.2-33.3) pg MCHC 32.7 (31.7-36.0) g/dL RDW 17.3 H (11.2-14.1) % Plt Count 191 (150-350) K/uL Neut % (Auto) 78.6 (45.0-80.0) % Lymph % (Auto) 8.9 L (10.0-50.0) % [place] % (Auto) 7.7 (2.0-14.0) % Eos % (Auto) 4.4 (0.0-5.0) % Baso % (Auto) 0.4 (0.0-2.0) % Neut # (Auto) 17.20 H (1.40-7.00) K/uL Lymph # (Auto) 1.94 (0.50-3.50) K/uL [place] # (Auto) 1.69 H (0.00-1.00) K/uL Eos # (Auto) 0.97 H (0.00-0.50) K/uL Baso # (Auto) 0.09 (0.00-0.20) K/uL Sodium 137 (136-145) mmol/L Potassium 4.2 (3.5-5.1) mmol/L Chloride 101 (98-107) mmol/L Carbon Dioxide 23.5 (21.0-32.0) mmol/L BUN 72 H (7-18) mg/dL Creatinine 2.41 H (0.51-1.17) mg/dL Est Cr Clr Drug Dosing TNP Estimated GFR (MDRD) 26 mL/min Glucose 174 H (74-106) mg/dL POC Glucose (65-110) mg/dl Lactic Acid (0.4-2.0) mmol/L Calcium 9.6 (8.5-10.1) mg/dL Iron 41 L (50-175) ug/dL TIBC 235 L (250-450) ug/dL % Saturation [id number] Ferritin 304 (8-388) ng/mL Total Bilirubin 0.6 (0.2-1.0) mg/dL AST 36 (15-37) U/L ALT 13 (12-78) U/L Alkaline Phosphatase 216 H (46-116) IU/L Total Protein 7.2 (6.4-8.2) g/dL Albumin 3.2 L (3.4-5.0) g/dL Blood Type Gel Antibody Screen 07/18/17 07/18/17 07/18/17 Range/Units 11:00 11:43 16:54 WBC (4.0-10.2) K/uL RBC (4.33-5.41) M/uL Hgb (13.1-16.8) g/dL Hct (39.0-49.0) % MCV (84.0-98.0) fL MCH (28.2-33.3) pg MCHC (31.7-36.0) g/dL RDW (11.2-14.1) % Plt Count (150-350) K/uL Neut % (Auto) (45.0-80.0) % Lymph % (Auto) (10.0-50.0) % [place] % (Auto) (2.0-14.0) % Eos % (Auto) (0.0-5.0) % Baso % (Auto) (0.0-2.0) % Neut # (Auto) (1.40-7.00) K/uL Lymph # (Auto) (0.50-3.50) K/uL [place] # (Auto) (0.00-1.00) K/uL Eos # (Auto) (0.00-0.50) K/uL Baso # (Auto) (0.00-0.20) K/uL Sodium (136-145) mmol/L Potassium (3.5-5.1) mmol/L Chloride (98-107) mmol/L Carbon Dioxide (21.0-32.0) mmol/L BUN (7-18) mg/dL Creatinine (0.51-1.17) mg/dL Est Cr Clr Drug Dosing Estimated GFR (MDRD) mL/min Glucose (74-106) mg/dL POC Glucose 213 H (65-110) mg/dl Lactic Acid 1.9 (0.4-2.0) mmol/L Calcium (8.5-10.1) mg/dL Iron (50-175) ug/dL TIBC (250-450) ug/dL % Saturation Ferritin (8-388) ng/mL Total Bilirubin (0.2-1.0) mg/dL AST (15-37) U/L ALT (12-78) U/L Alkaline Phosphatase (46-116) IU/L Total Protein (6.4-8.2) g/dL Albumin (3.4-5.0) g/dL Blood Type A POSITIVE Gel Antibody Screen Negative 07/19/17 07/19/17 07/19/17 Range/Units 06:00 06:00 06:00 WBC 19.7 H (4.0-10.2) K/uL RBC 2.63 L (4.33-5.41) M/uL Hgb 8.1 L (13.1-16.8) g/dL Hct 24.1 L* (39.0-49.0) % MCV 91.6 (84.0-98.0) fL MCH 30.8 (28.2-33.3) pg MCHC 33.6 (31.7-36.0) g/dL RDW 17.0 H (11.2-14.1) % Plt Count 162 (150-350) K/uL Neut % (Auto) 78.4 (45.0-80.0) % Lymph % (Auto) 8.5 L (10.0-50.0) % [place] % (Auto) 7.9 (2.0-14.0) % Eos % (Auto) 4.8 (0.0-5.0) % Baso % (Auto) 0.4 (0.0-2.0) % Neut # (Auto) 15.49 H (1.40-7.00) K/uL Lymph # (Auto) 1.68 (0.50-3.50) K/uL [place] # (Auto) 1.55 H (0.00-1.00) K/uL Eos # (Auto) 0.94 H (0.00-0.50) K/uL Baso # (Auto) 0.08 (0.00-0.20) K/uL Sodium 136 (136-145) mmol/L Potassium 4.1 (3.5-5.1) mmol/L Chloride 102 (98-107) mmol/L Carbon Dioxide 22.8 (21.0-32.0) mmol/L BUN 73 H (7-18) mg/dL Creatinine 2.39 H (0.51-1.17) mg/dL Est Cr Clr Drug Dosing 28.19 Estimated GFR (MDRD) 26 mL/min Glucose 189 H (74-106) mg/dL POC Glucose (65-110) mg/dl Lactic Acid 1.8 (0.4-2.0) mmol/L Calcium 8.7 (8.5-10.1) mg/dL Iron (50-175) ug/dL TIBC (250-450) ug/dL % Saturation Ferritin (8-388) ng/mL Total Bilirubin (0.2-1.0) mg/dL AST (15-37) U/L ALT (12-78) U/L Alkaline Phosphatase (46-116) IU/L Total Protein (6.4-8.2) g/dL Albumin (3.4-5.0) g/dL Blood Type Gel Antibody Screen 07/19/17 Range/Units 07:27 WBC (4.0-10.2) K/uL RBC (4.33-5.41) M/uL Hgb (13.1-16.8) g/dL Hct (39.0-49.0) % MCV (84.0-98.0) fL MCH (28.2-33.3) pg MCHC (31.7-36.0) g/dL RDW (11.2-14.1) % Plt Count (150-350) K/uL Neut % (Auto) (45.0-80.0) % Lymph % (Auto) (10.0-50.0) % [place] % (Auto) (2.0-14.0) % Eos % (Auto) (0.0-5.0) % Baso % (Auto) (0.0-2.0) % Neut # (Auto) (1.40-7.00) K/uL Lymph # (Auto) (0.50-3.50) K/uL [place] # (Auto) (0.00-1.00) K/uL Eos # (Auto) (0.00-0.50) K/uL Baso # (Auto) (0.00-0.20) K/uL Sodium (136-145) mmol/L Potassium (3.5-5.1) mmol/L Chloride (98-107) mmol/L Carbon Dioxide (21.0-32.0) mmol/L BUN (7-18) mg/dL Creatinine (0.51-1.17) mg/dL Est Cr Clr Drug Dosing Estimated GFR (MDRD) mL/min Glucose (74-106) mg/dL POC Glucose 168 H (65-110) mg/dl Lactic Acid (0.4-2.0) mmol/L Calcium (8.5-10.1) mg/dL Iron (50-175) ug/dL TIBC (250-450) ug/dL % Saturation Ferritin (8-388) ng/mL Total Bilirubin (0.2-1.0) mg/dL AST (15-37) U/L ALT (12-78) U/L Alkaline Phosphatase (46-116) IU/L Total Protein (6.4-8.2) g/dL Albumin (3.4-5.0) g/dL Blood Type Gel Antibody Screen Med Orders - Current: Current Medications Acetaminophen (Tylenol) 650 mg PO Q4H PRN PRN Reason: Pain Last Admin: 07/18/17 21:06 Dose: 650 mg Aspirin (Halfprin) 81 mg PO DAILY [facility] Last Admin: 07/19/17 07:32 Dose: Not Given Cholecalciferol (Vitamin D3) 2,000 units PO DAILY [facility] Last Admin: 07/19/17 07:34 Dose: 2,000 units Famotidine (Pepcid) 20 mg IVPUSH DAILY [facility] Ferrous Sulfate (Ferrous Sulfate) 325 mg PO DAILY [facility] Last Admin: 07/19/17 07:32 Dose: 325 mg Folic Acid (Folic Acid) 1 mg PO DAILY [facility] Last Admin: 07/19/17 07:32 Dose: 1 mg Linezolid 600 mg/ Premix 300 mls @ 150 mls/hr IV Q12H [facility] Last Admin: 07/19/17 01:06 Dose: 150 mls/hr Piperacillin Sod/Tazobactam (Sod 3.375 gm/ Sodium Chloride) 100 mls @ 200 mls/ hr IV Q6H [facility] Last Admin: 07/19/17 07:30 Dose: 200 mls/hr Insulin Aspart (Novolog) 0 unit SUBCUT TIDAC [facility] PRN Reason: Protocol Last Admin: 07/19/17 08:37 Dose: 1 units Insulin Detemir (Levemir) 20 unit SUBCUT DAILY [facility] Last Admin: 07/19/17 08:37 Dose: 20 unit Levothyroxine Sodium (Levothyroxine) 75 mcg PO ACBREAKFAST [facility] Last Admin: 07/19/17 07:31 Dose: 75 mcg Lidocaine (Lidoderm 5%) 700 mg TOP DAILY [facility] Last Admin: 07/19/17 07:34 Dose: 700 mg Magnesium Hydroxide (Milk Of Magnesia) 30 ml PO DAILY PRN PRN Reason: Constipation Metoprolol Succinate (Toprol Xl) 50 mg PO DAILY [facility] Last Admin: 07/19/17 07:34 Dose: 50 mg Nitroglycerin (Nitrostat) 0.4 mg SL ASDIRECTED PRN PRN Reason: Chest Pain Ondansetron HCl (Zofran) 4 mg IVPUSH Q6H PRN PRN Reason: Nausea/Vomiting Last Admin: 07/19/17 00:16 Dose: 4 mg Pantoprazole Sodium (Protonix Iv) 40 mg IVPUSH Q12H [facility] Last Admin: 07/19/17 01:06 Dose: 40 mg Ropinirole HCl (Requip) 0.25 mg PO DAILY [facility] Last Admin: 07/19/17 07:34 Dose: 0.25 mg Sodium Chloride (Saline Flush) 10 ml FLUSH Q12H PRN PRN Reason: IV Use Last Admin: 07/18/17 19:53 Dose: 10 ml Ticagrelor (Brilinta) 90 mg PO BID [facility] Last Admin: 07/19/17 07:32 Dose: Not Given Torsemide (Demadex) 20 mg PO DAILY [facility] Last Admin: 07/19/17 07:31 Dose: 20 mg Tramadol HCl (Ultram) 50 mg PO Q6H PRN PRN Reason: Pain Last Admin: 07/19/17 08:10 Dose: 50 mg Discontinued Medications Famotidine (Pepcid) 20 mg IVPUSH ONETIME ONE Stop: 07/19/17 01:01 Last Admin: 07/19/17 01:05 Dose: 20 mg Influenza Virus Vaccine (Pharmacy To Dose - Influenza Vaccine) 1 each IM ONETIME ONE Stop: 07/18/17 14:08 Influenza Virus Vaccine (Fluzone High-Dose 2017-18) 180 mcg IM .ONCE ONE Stop: 07/18/17 14:16 Pantoprazole Sodium (Protonix) 40 mg PO ACBREAKFAST [facility] Sodium Chloride (Saline Flush) 10 ml FLUSH Q12HR [facility] - Exam General: Alert, Oriented HEENT: Pupils Equal, Pupils Reactive, EOMI, Mucous Membr. Moist/[place] Neck: Supple Lungs: Clear to Auscultation, Normal Respiratory Effort Cardiovascular: Regular Rate, Regular Rhythm, Murmurs (2/6 systolic murmur) GI/Abdominal Exam: Other (emesis occult positive ; abdominal distention) (Male) Exam: Other (incontinent of urine) Back Exam: Normal Inspection, Full Range of Motion Extremities: Normal Inspection, Normal Range of Motion, Non-Tender, No Pedal Edema, Normal Capillary Refill Skin: Warm, Dry, Intact Neurological: No New Focal Deficit Psy/Mental Status: Alert, Normal Affect, Normal Mood - Problem List & Annotations (1) Leukocytosis SNOMED Code(s): 958212751 Code(s): D72.829 - ELEVATED WHITE BLOOD CELL COUNT, UNSPECIFIED Status: Acute Current Visit: Yes Onset Date: ~07/18/17 Qualifiers: Leukocytosis type: monocytosis Qualified Code(s): D72.821 - Monocytosis ( symptomatic) Annotation/Comment:: WBCs are improving. Will continue to monitor. (2) Acute GI bleeding SNOMED Code(s): 33570484 Code(s): K92.2 - GASTROINTESTINAL HEMORRHAGE, UNSPECIFIED Status: Acute Priority: Low Current Visit: No Onset Date: ~02/07/17 Annotation/Comment: : Positive emesis for occult blood. Patients HGB is 8.1 today. Patient is having generalized weakness secondary to anemia. Will transfuse RBCs secondary to weakness and anemia. Will recheck CBC this evening and in AM. (3) Generalized weakness SNOMED Code(s): 25776070 Code(s): R53.1 - WEAKNESS Status: Acute Priority: High Current Visit: No Annotation/Comment:: Positive emesis for occult blood. Patients HGB is 8.1 today. Patient is having generalized weakness secondary to anemia. Will transfuse RBCs secondary to weakness and anemia. Will recheck CBC this evening and in AM. Patient working with PT/OT (4) Anemia SNOMED Code(s): 110906899 Code(s): D64.9 - ANEMIA, UNSPECIFIED Status: Chronic Priority: Medium Current Visit: No Qualifiers: Anemia type: iron deficiency Iron deficiency anemia type: chronic blood loss Qualified Code(s): D50.0 - Iron deficiency anemia secondary to blood loss (chronic) Annotation/Comment:: Known history of chronic iron deficiency, folic acid deficiency, and vitamin B-12 deficiency with previous history of possible GI bleed. Positive emesis occult. Will transfuse RBCs today and continue to monitor. - Problem List Review Problem List Initiated/Reviewed/Updated: Yes - My Orders Last 24 Hours: My Active Orders 07/18/17 14:04 UA W/MICROSCOPIC [URIN] Stat 07/18/17 14:48 Consult to Case Management [CONS] Routine 07/18/17 20:11 traMADol [Ultram] 50 mg PO Q6H PRN - Plan Plan:: See above.
[2017-07-19] MEDS: Sodium Chloride 0.9% 1,000 ML IV SCH ×2 (14:22→23:22)
[2017-07-19] MEDS ORDERED: Furosemide 40 MG/4 ML VIAL ONE (16:17)
[2017-07-19] MEDS ORDERED: FLU Vacc TS 2017-18 (65yr UP)/PF 180 MCG/0.5 ML Syringe IM ONE (16:30)
[2017-07-19] MEDS: Piperacillin/Tazobactam 2.25 GM in Sodium Chloride 0.9% 100 ML IV SCH (19:30)
[2017-07-20] MEDS: Piperacillin/Tazobactam 2.25 GM in Sodium Chloride 0.9% 100 ML IV SCH ×3 (01:01→12:59)
[2017-07-20] MEDS: Linezolid 600 MG in Premix Bag 1 BAG IV SCH (01:01)
[2017-07-20] MEDS: Ondansetron 4 MG/2 ML SDV IVPUSH PRN ×2 (02:00→09:59)
[2017-07-20] MEDS: traMADol 50 MG Tab PO PRN ×2 (02:00→09:58)
[2017-07-20] MEDS: Menthol/Methyl Salicylate 85 GM Tube TOP PRN ×2 (04:09→19:30)
[2017-07-20] MEDS: Insulin Aspart 100 Units/ML 3 ML Pen SUBCUT SCH ×3 (07:22→17:19)
[2017-07-20] MEDS: Lidocaine 5% 700 MG Patch TOP SCH (07:30)
[2017-07-20] MEDS: rOPINIRole 0.25 MG Tab PO SCH (07:37)
[2017-07-20] MEDS: Famotidine 20 MG/2 ML SDV IVPUSH SCH (07:37)
[2017-07-20] MEDS: Levothyroxine 75 MCG Tab PO SCH (07:38)
[2017-07-20] MEDS: Insulin Detemir 100 Units/ML 3 ML Pen SUBCUT SCH (07:38)
[2017-07-20] MEDS: Folic Acid 1 MG Tab PO SCH (07:38)
[2017-07-20] MEDS: Cholecalciferol (Vitamin D3) 1,000 Unit Tab PO SCH (07:38)
[2017-07-20] MEDS: Ferrous Sulfate 325 MG Tab PO SCH (07:38)
[2017-07-20] MEDS: Metoprolol Succinate 50 MG Tab.ER PO SCH (07:39)
[2017-07-20] MEDS: Sodium Chloride 0.9% 10 ML Syringe FLUSH PRN ×2 (09:59→20:00)
[2017-07-20] MEDS: Pantoprazole 40 MG Vial IVPUSH SCH (11:52)
--- NOTE | 2017-07-20 13:32 | PCM.PN ---
- General Info Date of Service: 07/20/17 Functional Status: Reports: Pain Controlled, Tolerating Diet - Review of Systems General: Reports: Weakness HEENT: Reports: Other (Neck pain) Pulmonary: Reports: No Symptoms Cardiovascular: Reports: No Symptoms Gastrointestinal: Reports: No Symptoms Genitourinary: Reports: Incontinence Musculoskeletal: Reports: Neck Pain Skin: Reports: No Symptoms Neurological: Reports: No Symptoms Psychiatric: Reports: No Symptoms - Patient Data Vitals - Most Recent: Last Vital Signs Temp 98 F 07/20/17 08:00 Pulse 65 07/20/17 08:00 Resp 20 07/20/17 08:00 BP 111/57 L 07/20/17 08:00 Pulse Ox 92 L 07/20/17 08:00 Weight - Most Recent: 204 lb 8 oz I&O - Last 24 Hours: Intake & Output 07/19/17 07/20/17 07/20/17 22:59 06:59 14:59 Intake Total 1299 690 Balance 1299 690 Lab Results Last 24 Hours: Laboratory Results - last 24 hr 07/18/17 07/19/17 07/19/17 Range/Units 11:00 14:04 17:15 WBC (4.0-10.2) K/uL RBC (4.33-5.41) M/uL Hgb (13.1-16.8) g/dL Hct (39.0-49.0) % MCV (84.0-98.0) fL MCH (28.2-33.3) pg MCHC (31.7-36.0) g/dL RDW (11.2-14.1) % Plt Count (150-350) K/uL Neut % (Auto) (45.0-80.0) % Lymph % (Auto) (10.0-50.0) % [place] % (Auto) (2.0-14.0) % Eos % (Auto) (0.0-5.0) % Baso % (Auto) (0.0-2.0) % Neut # (Auto) (1.40-7.00) K/uL Lymph # (Auto) (0.50-3.50) K/uL [place] # (Auto) (0.00-1.00) K/uL Eos # (Auto) (0.00-0.50) K/uL Baso # (Auto) (0.00-0.20) K/uL POC Glucose 165 H (65-110) mg/dl Specimen Type Urincc Urine Color Yellow Urine Appearance Clear Urine pH 5.0 (5.0-9.0) Ur Specific [place] 1.015 (1.005-1.030) Urine Protein Negative (NEGATIVE) mg/dL Urine Glucose (UA) Negative (NEGATIVE) mg/dL Urine Ketones Negative (NEGATIVE) mg/dL Urine Occult Blood Negative (NEGATIVE) Urine Nitrite Negative (NEGATIVE) Urine Bilirubin Negative (NEGATIVE) Urine Urobilinogen 0.2 (0.2-1.0) E.U./dL Ur Leukocyte Esterase Negative (NEGATIVE) Urine RBC 0-5 /HPF Urine WBC 0-5 /HPF Ur Epithelial Cells Few /LPF Urine Bacteria Rare (NONE TO FEW) /HPF Blood Type A POSITIVE Gel Antibody Screen Negative Crossmatch See Detail 07/19/17 07/20/17 07/20/17 Range/Units 20:04 07:08 07:08 WBC 21.1 H 20.1 H (4.0-10.2) K/uL RBC 3.36 L 3.34 L (4.33-5.41) M/uL Hgb 10.0 L D 10.0 L (13.1-16.8) g/dL Hct 30.0 L 29.6 L (39.0-49.0) % MCV 89.3 88.6 (84.0-98.0) fL MCH 29.8 29.9 (28.2-33.3) pg MCHC 33.3 33.8 (31.7-36.0) g/dL RDW 17.1 H 17.4 H (11.2-14.1) % Plt Count 157 162 (150-350) K/uL Neut % (Auto) 79.4 79.0 (45.0-80.0) % Lymph % (Auto) 8.0 L 8.3 L (10.0-50.0) % [place] % (Auto) 7.5 7.5 (2.0-14.0) % Eos % (Auto) 4.7 4.9 (0.0-5.0) % Baso % (Auto) 0.4 0.3 (0.0-2.0) % Neut # (Auto) 16.71 H 15.89 H (1.40-7.00) K/uL Lymph # (Auto) 1.69 1.66 (0.50-3.50) K/uL [place] # (Auto) 1.58 H 1.50 H (0.00-1.00) K/uL Eos # (Auto) 1.00 H 0.98 H (0.00-0.50) K/uL Baso # (Auto) 0.08 0.07 (0.00-0.20) K/uL POC Glucose 81 (65-110) mg/dl Specimen Type Urine Color Urine Appearance Urine pH (5.0-9.0) Ur Specific [place] (1.005-1.030) Urine Protein (NEGATIVE) mg/dL Urine Glucose (UA) (NEGATIVE) mg/dL Urine Ketones (NEGATIVE) mg/dL Urine Occult Blood (NEGATIVE) Urine Nitrite (NEGATIVE) Urine Bilirubin (NEGATIVE) Urine Urobilinogen (0.2-1.0) E.U./dL Ur Leukocyte Esterase (NEGATIVE) Urine RBC /HPF Urine WBC /HPF Ur Epithelial Cells /LPF Urine Bacteria (NONE TO FEW) /HPF Blood Type Gel Antibody Screen Crossmatch 07/20/17 Range/Units 11:39 WBC (4.0-10.2) K/uL RBC (4.33-5.41) M/uL Hgb (13.1-16.8) g/dL Hct (39.0-49.0) % MCV (84.0-98.0) fL MCH (28.2-33.3) pg MCHC (31.7-36.0) g/dL RDW (11.2-14.1) % Plt Count (150-350) K/uL Neut % (Auto) (45.0-80.0) % Lymph % (Auto) (10.0-50.0) % [place] % (Auto) (2.0-14.0) % Eos % (Auto) (0.0-5.0) % Baso % (Auto) (0.0-2.0) % Neut # (Auto) (1.40-7.00) K/uL Lymph # (Auto) (0.50-3.50) K/uL [place] # (Auto) (0.00-1.00) K/uL Eos # (Auto) (0.00-0.50) K/uL Baso # (Auto) (0.00-0.20) K/uL POC Glucose 132 H (65-110) mg/dl Specimen Type Urine Color Urine Appearance Urine pH (5.0-9.0) Ur Specific [place] (1.005-1.030) Urine Protein (NEGATIVE) mg/dL Urine Glucose (UA) (NEGATIVE) mg/dL Urine Ketones (NEGATIVE) mg/dL Urine Occult Blood (NEGATIVE) Urine Nitrite (NEGATIVE) Urine Bilirubin (NEGATIVE) Urine Urobilinogen (0.2-1.0) E.U./dL Ur Leukocyte Esterase (NEGATIVE) Urine RBC /HPF Urine WBC /HPF Ur Epithelial Cells /LPF Urine Bacteria (NONE TO FEW) /HPF Blood Type Gel Antibody Screen Crossmatch [facility] Results Last 24 Hours: Microbiology 07/19/17 23:22 Stool Occult Blood (KEVIN) - Final Stool / Feces NEGATIVE OCCULT BLOOD Med Orders - Current: Current Medications Acetaminophen (Tylenol) 650 mg PO Q4H PRN PRN Reason: Pain Last Admin: 07/18/17 21:06 Dose: 650 mg Aspirin (Halfprin) 81 mg PO DAILY [facility] Last Admin: 07/19/17 07:32 Dose: Not Given Cholecalciferol (Vitamin D3) 2,000 units PO DAILY [facility] Last Admin: 07/20/17 07:38 Dose: 2,000 units Famotidine (Pepcid) 20 mg IVPUSH DAILY [facility] Last Admin: 07/20/17 07:37 Dose: 20 mg Ferrous Sulfate (Ferrous Sulfate) 325 mg PO DAILY [facility] Last Admin: 07/20/17 07:38 Dose: 325 mg Folic Acid (Folic Acid) 1 mg PO DAILY [facility] Last Admin: 07/20/17 07:38 Dose: 1 mg Linezolid 600 mg/ Premix 300 mls @ 150 mls/hr IV Q12H [facility] Last Admin: 07/20/17 01:01 Dose: 150 mls/hr Sodium Chloride (Normal Saline) 1,000 mls @ 75 mls/hr IV ASDIRECTED [facility] Last Admin: 07/19/17 23:22 Dose: 75 mls/hr Piperacillin Sod/Tazobactam (Sod 2.25 gm/ Sodium Chloride) 100 mls @ 200 mls/ hr IV Q6H [facility] Last Admin: 07/20/17 12:59 Dose: 200 mls/hr Influenza Virus Vaccine (Fluzone High-Dose 2017-) 180 mcg IM .ONCE ONE Stop: 07/19/17 16:31 Insulin Aspart (Novolog) 0 unit SUBCUT TIDAC [facility] PRN Reason: Protocol Last Admin: 07/20/17 11:51 Dose: Not Given Insulin Detemir (Levemir) 20 unit SUBCUT DAILY [facility] Last Admin: 07/20/17 07:38 Dose: 20 unit Levothyroxine Sodium (Levothyroxine) 75 mcg PO ACBREAKFAST [facility] Last Admin: 07/20/17 07:38 Dose: 75 mcg Lidocaine (Lidoderm 5%) 700 mg TOP DAILY [facility] Last Admin: 07/20/17 07:30 Dose: 700 mg Magnesium Hydroxide (Milk Of Magnesia) 30 ml PO DAILY PRN PRN Reason: Constipation Methyl Salicylate (Icy Hot Cream) 1 gm TOP ASDIRECTED PRN PRN Reason: Pain Last Admin: 07/20/17 04:09 Dose: 1 applic Metoprolol Succinate (Toprol Xl) 50 mg PO DAILY [facility] Last Admin: 07/20/17 07:39 Dose: 50 mg Nitroglycerin (Nitrostat) 0.4 mg SL ASDIRECTED PRN PRN Reason: Chest Pain Ondansetron HCl (Zofran) 4 mg IVPUSH Q6H PRN PRN Reason: Nausea/Vomiting Last Admin: 07/20/17 09:59 Dose: 4 mg Pantoprazole Sodium (Protonix Iv) 40 mg IVPUSH Q12H [facility] Last Admin: 07/20/17 11:52 Dose: 40 mg Ropinirole HCl (Requip) 0.25 mg PO DAILY [facility] Last Admin: 07/20/17 07:37 Dose: 0.25 mg Sodium Chloride (Saline Flush) 10 ml FLUSH Q12H PRN PRN Reason: IV Use Last Admin: 07/20/17 09:59 Dose: 10 ml Ticagrelor (Brilinta) 90 mg PO BID [facility] Last Admin: 07/19/17 07:32 Dose: Not Given Torsemide (Demadex) 20 mg PO DAILY [facility] Last Admin: 07/20/17 07:38 Dose: 20 mg Tramadol HCl (Ultram) 50 mg PO Q6H PRN PRN Reason: Pain Last Admin: 07/20/17 09:58 Dose: 50 mg Discontinued Medications Famotidine (Pepcid) 20 mg IVPUSH ONETIME ONE Stop: 07/19/17 01:01 Last Admin: 07/19/17 01:05 Dose: 20 mg Furosemide (Lasix) 40 mg IV NOW ONE Stop: 07/19/17 10:25 Last Admin: 07/19/17 16:48 Dose: 40 mg Furosemide (Lasix) Confirm Administered Dose 40 mg .ROUTE .STK-MED ONE Stop: 07/19/17 16:18 Last Admin: 07/19/17 16:48 Dose: Not Given Piperacillin Sod/Tazobactam (Sod 3.375 gm/ Sodium Chloride) 100 mls @ 200 mls/ hr IV Q6H [facility] Last Admin: 07/19/17 12:05 Dose: 200 mls/hr Influenza Virus Vaccine (Pharmacy To Dose - Influenza Vaccine) 1 each IM ONETIME ONE Stop: 07/18/17 14:08 Influenza Virus Vaccine (Fluzone High-Dose 2016-) 180 mcg IM .ONCE ONE Stop: 07/18/17 14:16 Pantoprazole Sodium (Protonix) 40 mg PO ACBREAKFAST [facility] Piperacillin Sod/Tazobactam Sod (Zosyn) Confirm Administered Dose 2.25 gm .ROUTE .STK-MED ONE Stop: 07/19/17 19:09 Last Admin: 07/19/17 19:38 Dose: Not Given Sodium Chloride (Saline Flush) 10 ml FLUSH Q12HR [place]BAR[place] - Exam General: Alert, Oriented HEENT: Pupils Equal, Pupils Reactive, EOMI, Mucous Membr. Moist/Inez Neck: Other (Ecchymosis to the back of the neck tenderness to palpation) Lungs: Clear to Auscultation, Normal Respiratory Effort Cardiovascular: Murmurs (2/6 systolic murmur) GI/Abdominal Exam: Normal Bowel Sounds, Soft, Non-Tender, Distended (Male) Exam: Deferred Back Exam: Muscle Spasm (Neck), Other (Neck tenderness) Extremities: Normal Inspection, Normal Range of Motion, Non-Tender, No Pedal Edema, Normal Capillary Refill Skin: Warm, Dry, Intact Neurological: No New Focal Deficit Psy/Mental Status: Alert, Normal Affect, Normal Mood - Problem List & Annotations (1) Leukocytosis SNOMED Code(s): 927551034 Code(s): D72.829 - ELEVATED WHITE BLOOD CELL COUNT, UNSPECIFIED Status: Acute Current Visit: Yes Onset Date: ~07/18/17 Qualifiers: Leukocytosis type: monocytosis Qualified Code(s): D72.821 - Monocytosis ( symptomatic) Annotation/Comment:: White count slightly elevated will continue observing no focus of infection at this time we will stop antibiotics at this time. (2) Acute GI bleeding SNOMED Code(s): 97365936 Code(s): K92.2 - GASTROINTESTINAL HEMORRHAGE, UNSPECIFIED Status: Acute Priority: Low Current Visit: No Onset Date: ~02/07/17 Annotation/Comment: : Patient transfused 2 units yesterday. hemoglobin stable at 10.0 (3) Generalized weakness SNOMED Code(s): 41620850 Code(s): R53.1 - WEAKNESS Status: Acute Priority: High Current Visit: No Annotation/Comment:: Positive emesis for occult blood. Patients HGB 10.0 today. Will continue to monitor. Patient working with PT/OT (4) Anemia SNOMED Code(s): 091602927 Code(s): D64.9 - ANEMIA, UNSPECIFIED Status: Chronic Priority: Medium Current Visit: No Qualifiers: Anemia type: iron deficiency Iron deficiency anemia type: chronic blood loss Qualified Code(s): D50.0 - Iron deficiency anemia secondary to blood loss (chronic) Annotation/Comment:: Known history of chronic iron deficiency, folic acid deficiency, and vitamin B-12 deficiency with previous history of possible GI bleed. Positive emesis occult. Transfused 2 unite yesterday. HGB stable at 10.0. Will continue to monitor. Patient is on consult list for upper GI scope tomorrow. (5) Neck pain SNOMED Code(s): 20314120 Code(s): M54.2 - CERVICALGIA Status: Acute Current Visit: Yes Annotation/Comment:: At this time we will start treating with icy hot and warm packs lidocaine patch started physical therapy to continue - Problem List Review Problem List Initiated/Reviewed/Updated: Yes - My Orders Last 24 Hours: My Active Orders 07/19/17 14:00 Sodium Chloride 0.9% [Normal Saline] 1,000 ml IV ASDIRECTED 07/19/17 15:19 Menthol/Methyl Salicylate [Icy Hot Cream] 1 gm TOP ASDIRECTED PRN 07/19/17 16:30 FLU Vacc [id number](65YR UP)/PF [Fluzone High-Dose ] 180 mcg IM .ONCE ONE 07/20/17 Dinner NPO After Midnight [Nothing per Oral After Midnight Diet] [DIET] 07/21/17 06:00 Consult to Physician [CONS] Urgent - Plan Plan:: Patient schedule for gastroscopy tomorrow we will continue treatment as above recheck hemoglobin in a.m.
[2017-07-21] MEDS: Pantoprazole 40 MG Vial IVPUSH SCH ×3 (00:05→23:01)
[2017-07-21] MEDS: Sodium Chloride 0.9% 10 ML Syringe FLUSH PRN ×4 (00:05→23:01)
[2017-07-21] MEDS: Menthol/Methyl Salicylate 85 GM Tube TOP PRN ×3 (00:07→23:15)
[2017-07-21] MEDS: Acetaminophen 325 MG Tab PO PRN (03:00)
[2017-07-21] MEDS: Insulin Aspart 100 Units/ML 3 ML Pen SUBCUT SCH ×3 (06:57→17:06)
[2017-07-21] MEDS ORDERED: Dextrose 5%-0.9% NaCl 1,000 ML IV SCH (08:15)
[2017-07-21] MEDS: Lidocaine 5% 700 MG Patch TOP SCH (08:24)
[2017-07-21] MEDS: Famotidine 20 MG/2 ML SDV IVPUSH SCH (08:25)
[2017-07-21] MEDS: Metoprolol Succinate 50 MG Tab.ER PO SCH (09:07)
[2017-07-21] MEDS ORDERED: Insulin Detemir 100 Units/ML 3 ML Pen SUBCUT ONE (09:18)
--- NOTE | 2017-07-21 10:53 | PCM.PN ---
- General Info Date of Service: 07/21/17 Admission Dx/Problem (Free Text): Admission Diagnosis/Problem Admission Diagnosis/Problem Leukocytosis generalized weakness, Neck pain , GI bleed Today patient complains of increased neck pain and discomfort exam revealed patient had fallen on Tuesday and now has ecchymosis of the paravertebral area with no tenderness Functional Status: Reports: Pain Controlled, Ambulating - Review of Systems General: Reports: Weakness HEENT: Reports: Other (Neck pain) Pulmonary: Reports: No Symptoms Cardiovascular: Reports: No Symptoms Gastrointestinal: Reports: Other (Distention) Genitourinary: Reports: No Symptoms Musculoskeletal: Reports: Neck Pain Skin: Reports: No Symptoms Neurological: Reports: No Symptoms - Patient Data Vitals - Most Recent: Last Vital Signs Temp 98.1 F 07/21/17 07:40 Pulse 62 07/21/17 05:21 Resp 16 07/21/17 07:40 BP 114/62 07/21/17 07:40 Pulse Ox 93 L 07/21/17 05:21 Weight - Most Recent: 204 lb 8 oz I&O - Last 24 Hours: Intake & Output 07/20/17 07/21/17 07/21/17 22:59 06:59 14:59 Intake Total 30 Balance 30 Lab Results Last 24 Hours: Laboratory Results - last 24 hr 07/20/17 07/20/17 07/20/17 Range/Units 07:08 11:39 16:53 WBC (4.0-10.2) K/uL RBC (4.33-5.41) M/uL Hgb (13.1-16.8) g/dL Hct (39.0-49.0) % MCV (84.0-98.0) fL MCH (28.2-33.3) pg MCHC (31.7-36.0) g/dL RDW (11.2-14.1) % Plt Count (150-350) K/uL Neut % (Auto) (45.0-80.0) % Lymph % (Auto) (10.0-50.0) % [place] % (Auto) (2.0-14.0) % Eos % (Auto) (0.0-5.0) % Baso % (Auto) (0.0-2.0) % Neut # (Auto) (1.40-7.00) K/uL Lymph # (Auto) (0.50-3.50) K/uL [place] # (Auto) (0.00-1.00) K/uL Eos # (Auto) (0.00-0.50) K/uL Baso # (Auto) (0.00-0.20) K/uL Sodium (136-145) mmol/L Potassium (3.5-5.1) mmol/L Chloride (98-107) mmol/L Carbon Dioxide (21.0-32.0) mmol/L BUN (7-18) mg/dL Creatinine (0.51-1.17) mg/dL Est Cr Clr Drug Dosing mL/min Estimated GFR (MDRD) mL/min Glucose (74-106) mg/dL POC Glucose 81 132 H 132 H (65-110) mg/dl Calcium (8.5-10.1) mg/dL 07/21/17 07/21/17 07/21/17 Range/Units 06:50 06:50 06:55 WBC 23.9 H (4.0-10.2) K/uL RBC 3.37 L (4.33-5.41) M/uL Hgb 10.2 L (13.1-16.8) g/dL Hct 30.2 L (39.0-49.0) % MCV 89.6 (84.0-98.0) fL MCH 30.3 (28.2-33.3) pg MCHC 33.8 (31.7-36.0) g/dL RDW 17.5 H (11.2-14.1) % Plt Count 180 (150-350) K/uL Neut % (Auto) 79.4 (45.0-80.0) % Lymph % (Auto) 7.8 L (10.0-50.0) % [place] % (Auto) 8.0 (2.0-14.0) % Eos % (Auto) 4.4 (0.0-5.0) % Baso % (Auto) 0.4 (0.0-2.0) % Neut # (Auto) 18.94 H (1.40-7.00) K/uL Lymph # (Auto) 1.85 (0.50-3.50) K/uL [place] # (Auto) 1.90 H (0.00-1.00) K/uL Eos # (Auto) 1.06 H (0.00-0.50) K/uL Baso # (Auto) 0.10 (0.00-0.20) K/uL Sodium 137 (136-145) mmol/L Potassium 4.1 (3.5-5.1) mmol/L Chloride 103 (98-107) mmol/L Carbon Dioxide 22.1 (21.0-32.0) mmol/L BUN 73 H (7-18) mg/dL Creatinine 3.43 H* (0.51-1.17) mg/dL Est Cr Clr Drug Dosing 19.17 mL/min Estimated GFR (MDRD) 17 mL/min Glucose 85 (74-106) mg/dL POC Glucose 75 (65-110) mg/dl Calcium 8.9 (8.5-10.1) mg/dL Kevin Results Last 24 Hours: Microbiology 07/19/17 23:22 Stool Occult Blood (KEVIN) - Final Stool / Feces NEGATIVE OCCULT BLOOD Med Orders - Current: Current Medications Acetaminophen (Tylenol) 650 mg PO Q4H PRN PRN Reason: Pain Last Admin: 07/21/17 03:00 Dose: 650 mg Aspirin (Halfprin) 81 mg PO DAILY [facility] Last Admin: 07/19/17 07:32 Dose: Not Given Cholecalciferol (Vitamin D3) 2,000 units PO DAILY [facility] Last Admin: 07/20/17 07:38 Dose: 2,000 units Famotidine (Pepcid) 20 mg IVPUSH DAILY [facility] Last Admin: 07/21/17 08:25 Dose: 20 mg Ferrous Sulfate (Ferrous Sulfate) 325 mg PO DAILY [facility] Last Admin: 07/20/17 07:38 Dose: 325 mg Folic Acid (Folic Acid) 1 mg PO DAILY [facility] Last Admin: 07/20/17 07:38 Dose: 1 mg Dextrose/Sodium Chloride (Dextrose 5%-Normal Saline) 1,000 mls @ 150 mls/hr IV ASDIRECTED [facility] Last Admin: 07/21/17 08:24 Dose: 150 mls/hr Influenza Virus Vaccine (Fluzone High-Dose ) 180 mcg IM .ONCE ONE Stop: 07/19/17 16:31 Insulin Aspart (Novolog) 0 unit SUBCUT TIDAC [facility] PRN Reason: Protocol Last Admin: 07/21/17 06:57 Dose: Not Given Insulin Detemir (Levemir) 20 unit SUBCUT DAILY [facility] Last Admin: 07/20/17 07:38 Dose: 20 unit Levothyroxine Sodium (Levothyroxine) 75 mcg PO ACBREAKFAST [facility] Last Admin: 07/20/17 07:38 Dose: 75 mcg Lidocaine (Lidoderm 5%) 700 mg TOP DAILY [facility] Last Admin: 07/21/17 08:24 Dose: 700 mg Magnesium Hydroxide (Milk Of Magnesia) 30 ml PO DAILY PRN PRN Reason: Constipation Methyl Salicylate (Icy Hot Cream) 1 gm TOP ASDIRECTED PRN PRN Reason: Pain Last Admin: 07/21/17 05:00 Dose: 1 applic Metoprolol Succinate (Toprol Xl) 50 mg PO DAILY [facility] Last Admin: 07/21/17 09:07 Dose: Not Given Nitroglycerin (Nitrostat) 0.4 mg SL ASDIRECTED PRN PRN Reason: Chest Pain Ondansetron HCl (Zofran) 4 mg IVPUSH Q6H PRN PRN Reason: Nausea/Vomiting Last Admin: 07/20/17 09:59 Dose: 4 mg Pantoprazole Sodium (Protonix Iv) 40 mg IVPUSH Q12H [facility] Last Admin: 07/21/17 00:05 Dose: 40 mg Ropinirole HCl (Requip) 0.25 mg PO DAILY [facility] Last Admin: 07/20/17 07:37 Dose: 0.25 mg Sodium Chloride (Saline Flush) 10 ml FLUSH ASDIRECTED PRN PRN Reason: IV Use Ticagrelor (Brilinta) 90 mg PO BID [facility] Last Admin: 07/19/17 07:32 Dose: Not Given Torsemide (Demadex) 20 mg PO DAILY [facility] Last Admin: 07/20/17 07:38 Dose: 20 mg Discontinued Medications Famotidine (Pepcid) 20 mg IVPUSH ONETIME ONE Stop: 07/19/17 01:01 Last Admin: 07/19/17 01:05 Dose: 20 mg Furosemide (Lasix) 40 mg IV NOW ONE Stop: 07/19/17 10:25 Last Admin: 07/19/17 16:48 Dose: 40 mg Furosemide (Lasix) Confirm Administered Dose 40 mg .ROUTE .STK-MED ONE Stop: 07/19/17 16:18 Last Admin: 07/19/17 16:48 Dose: Not Given Linezolid 600 mg/ Premix 300 mls @ 150 mls/hr IV Q12H [facility] Last Admin: 07/20/17 01:01 Dose: 150 mls/hr Piperacillin Sod/Tazobactam (Sod 3.375 gm/ Sodium Chloride) 100 mls @ 200 mls/ hr IV Q6H [facility] Last Admin: 07/19/17 12:05 Dose: 200 mls/hr Sodium Chloride (Normal Saline) 1,000 mls @ 75 mls/hr IV ASDIRECTED [facility] Last Admin: 07/19/17 23:22 Dose: 75 mls/hr Piperacillin Sod/Tazobactam (Sod 2.25 gm/ Sodium Chloride) 100 mls @ 200 mls/ hr IV Q6H [facility] Last Admin: 07/20/17 12:59 Dose: 200 mls/hr Influenza Virus Vaccine (Pharmacy To Dose - Influenza Vaccine) 1 each IM ONETIME ONE Stop: 07/18/17 14:08 Influenza Virus Vaccine (Fluzone High-Dose 2016-) 180 mcg IM .ONCE ONE Stop: 07/18/17 14:16 Insulin Detemir (Levemir) 10 unit SUBCUT ONETIME ONE Stop: 07/21/17 09:19 Pantoprazole Sodium (Protonix) 40 mg PO ACBREAKFAST [facility] Piperacillin Sod/Tazobactam Sod (Zosyn) Confirm Administered Dose 2.25 gm .ROUTE .STK-MED ONE Stop: 07/19/17 19:09 Last Admin: 07/19/17 19:38 Dose: Not Given Sodium Chloride (Saline Flush) 10 ml FLUSH Q12HR [facility] Sodium Chloride (Saline Flush) 10 ml FLUSH Q12H PRN PRN Reason: IV Use Last Admin: 07/21/17 08:25 Dose: 10 ml Tramadol HCl (Ultram) 50 mg PO Q6H PRN PRN Reason: Pain Last Admin: 07/20/17 09:58 Dose: 50 mg - Exam General: Alert, Oriented HEENT: Pupils Equal, Pupils Reactive, EOMI, Mucous Membr. Moist/[place] Neck: Other (Posterior neck pain secondary to fall ecchymosis) Lungs: Clear to Auscultation, Normal Respiratory Effort Cardiovascular: Murmurs (2/6 systolic murmur) GI/Abdominal Exam: Normal Bowel Sounds, Soft, Distended, Other (Midline hernia ) (Male) Exam: Deferred Back Exam: Muscle Spasm, Other (Neck discomfort with echo ecchymosis) Extremities: Normal Inspection, Normal Range of Motion, Non-Tender, No Pedal Edema, Normal Capillary Refill Skin: Ecchymosis Neurological: Other (Confused) Psy/Mental Status: Other (Confused) - Problem List & Annotations (1) Leukocytosis SNOMED Code(s): 677184866 Code(s): D72.829 - ELEVATED WHITE BLOOD CELL COUNT, UNSPECIFIED Status: Acute Current Visit: Yes Onset Date: ~07/18/17 Qualifiers: Leukocytosis type: monocytosis Qualified Code(s): D72.821 - Monocytosis ( symptomatic) Annotation/Comment:: White count slightly elevated will continue observing no focus of infection at this time (2) Acute GI bleeding SNOMED Code(s): 73073637 Code(s): K92.2 - GASTROINTESTINAL HEMORRHAGE, UNSPECIFIED Status: Acute Priority: Low Current Visit: No Onset Date: ~02/07/17 Annotation/Comment: : Patient will undergo gastroscopy today (3) Generalized weakness SNOMED Code(s): 81437830 Code(s): R53.1 - WEAKNESS Status: Acute Priority: High Current Visit: No Annotation/Comment:: Patient will undergo gastroscopy today Patient working with PT/OT (4) Anemia SNOMED Code(s): 157504381 Code(s): D64.9 - ANEMIA, UNSPECIFIED Status: Chronic Priority: Medium Current Visit: No Qualifiers: Anemia type: iron deficiency Iron deficiency anemia type: chronic blood loss Qualified Code(s): D50.0 - Iron deficiency anemia secondary to blood loss (chronic) Annotation/Comment:: Known history of chronic iron deficiency, folic acid deficiency, and vitamin B-12 deficiency with previous history of possible GI bleed. Positive emesis occult. Transfused 2 unite yesterday. HGB stable at 10.0. Will continue to monitor. Patient will under go upper EGD today (5) Neck pain SNOMED Code(s): 02207030 Code(s): M54.2 - CERVICALGIA Status: Acute Current Visit: Yes Annotation/Comment:: At this time we will start treating with icy hot and warm packs lidocaine patch started physical therapy to continue (6) Renal failure, acute on chronic SNOMED Code(s): 520701982 Code(s): N17.9 - ACUTE KIDNEY FAILURE, UNSPECIFIED; N18.9 - CHRONIC KIDNEY DISEASE, UNSPECIFIED Status: Acute Current Visit: Yes Qualifiers: Acute renal failure type: unspecified Chronic kidney disease stage: unspecified stage Qualified Code(s): N17.9 - Acute kidney failure, unspecified ; N18.9 - Chronic kidney disease, unspecified; N18.9 - Chronic kidney disease, unspecified Annotation/Comment:: Patient will be started on fluids at this time we'll keep an eye on his chest so monitor for CHF. - Problem List Review Problem List Initiated/Reviewed/Updated: Yes - My Orders Last 24 Hours: My Active Orders 07/20/17 Dinner NPO After Midnight [Nothing per Oral After Midnight Diet] [DIET] 07/21/17 06:00 Consult to Physician [CONS] Urgent 07/21/17 08:15 Dextrose 5%-0.9% NaCl [Dextrose 5%-Normal Saline] 1,000 ml IV ASDIRECTED 07/21/17 08:25 Sodium Chloride 0.9% [Saline Flush] 10 ml FLUSH ASDIRECTED PRN - Plan Plan:: Patient schedule for gastroscopy today. Further plan above.
[2017-07-21] MEDS: Insulin Detemir 100 Units/ML 3 ML Pen SUBCUT SCH (11:29)
[2017-07-21] MEDS ORDERED: Midazolam 1 MG/ML 2 ML SDV ONE ×2 (14:29→14:50)
[2017-07-21] MEDS ORDERED: fentaNYL 100 MCG/2 ML SDV ONE ×2 (14:29→14:50)
[2017-07-21] MEDS ORDERED: Lactated Ringers 1,000 ML IV SCH (14:44)
[2017-07-21] MEDS: Ondansetron 4 MG/2 ML SDV IVPUSH PRN (14:45)
--- NOTE | 2017-07-21 14:46 | PCM.PN ---
- General Info Date of Service: 07/21/17 - Review of Systems Systems Review Comment:: 81-year-old male seen today for evaluation of low hemoglobin and heme positive emesis. He was admitted 3 days ago with weakness and was noted to have low hemoglobin which dropped to 8.1. He has had some vomiting and also notes that he is seen some blood in his stool. Upper endoscopy is requested to evaluate for possible upper GI bleeding source. I have discussed the proposed upper endoscopy with the patient. He agrees to proceed accepting risks. - Patient Data Vitals - Most Recent: Last Vital Signs Temp 98.3 F 07/21/17 12:20 Pulse 64 07/21/17 12:20 Resp 16 07/21/17 12:20 BP 103/56 L 07/21/17 12:20 Pulse Ox 91 L 07/21/17 12:20 Weight - Most Recent: 92.76 kg I&O - Last 24 Hours: Intake & Output 07/20/17 07/21/17 07/21/17 22:59 06:59 14:59 Intake Total 30 Balance 30 Lab Results Last 24 Hours: Laboratory Results - last 24 hr 07/20/17 07/21/17 07/21/17 Range/Units 16:53 06:50 06:50 WBC 23.9 H (4.0-10.2) K/uL RBC 3.37 L (4.33-5.41) M/uL Hgb 10.2 L (13.1-16.8) g/dL Hct 30.2 L (39.0-49.0) % MCV 89.6 (84.0-98.0) fL MCH 30.3 (28.2-33.3) pg MCHC 33.8 (31.7-36.0) g/dL RDW 17.5 H (11.2-14.1) % Plt Count 180 (150-350) K/uL Neut % (Auto) 79.4 (45.0-80.0) % Lymph % (Auto) 7.8 L (10.0-50.0) % [place] % (Auto) 8.0 (2.0-14.0) % Eos % (Auto) 4.4 (0.0-5.0) % Baso % (Auto) 0.4 (0.0-2.0) % Neut # (Auto) 18.94 H (1.40-7.00) K/uL Lymph # (Auto) 1.85 (0.50-3.50) K/uL [place] # (Auto) 1.90 H (0.00-1.00) K/uL Eos # (Auto) 1.06 H (0.00-0.50) K/uL Baso # (Auto) 0.10 (0.00-0.20) K/uL Sodium 137 (136-145) mmol/L Potassium 4.1 (3.5-5.1) mmol/L Chloride 103 (98-107) mmol/L Carbon Dioxide 22.1 (21.0-32.0) mmol/L BUN 73 H (7-18) mg/dL Creatinine 3.43 H* (0.51-1.17) mg/dL Est Cr Clr Drug Dosing 19.17 mL/min Estimated GFR (MDRD) 17 mL/min Glucose 85 (74-106) mg/dL POC Glucose 132 H (65-110) mg/dl Calcium 8.9 (8.5-10.1) mg/dL 07/21/17 07/21/17 Range/Units 06:55 11:41 WBC (4.0-10.2) K/uL RBC (4.33-5.41) M/uL Hgb (13.1-16.8) g/dL Hct (39.0-49.0) % MCV (84.0-98.0) fL MCH (28.2-33.3) pg MCHC (31.7-36.0) g/dL RDW (11.2-14.1) % Plt Count (150-350) K/uL Neut % (Auto) (45.0-80.0) % Lymph % (Auto) (10.0-50.0) % [place] % (Auto) (2.0-14.0) % Eos % (Auto) (0.0-5.0) % Baso % (Auto) (0.0-2.0) % Neut # (Auto) (1.40-7.00) K/uL Lymph # (Auto) (0.50-3.50) K/uL [place] # (Auto) (0.00-1.00) K/uL Eos # (Auto) (0.00-0.50) K/uL Baso # (Auto) (0.00-0.20) K/uL Sodium (136-145) mmol/L Potassium (3.5-5.1) mmol/L Chloride (98-107) mmol/L Carbon Dioxide (21.0-32.0) mmol/L BUN (7-18) mg/dL Creatinine (0.51-1.17) mg/dL Est Cr Clr Drug Dosing mL/min Estimated GFR (MDRD) mL/min Glucose (74-106) mg/dL POC Glucose 75 110 (65-110) mg/dl Calcium (8.5-10.1) mg/dL Med Orders - Current: Current Medications Acetaminophen (Tylenol) 650 mg PO Q4H PRN PRN Reason: Pain Last Admin: 07/21/17 03:00 Dose: 650 mg Aspirin (Halfprin) 81 mg PO DAILY [facility] Last Admin: 07/19/17 07:32 Dose: Not Given Cholecalciferol (Vitamin D3) 2,000 units PO DAILY [facility] Last Admin: 07/20/17 07:38 Dose: 2,000 units Famotidine (Pepcid) 20 mg IVPUSH DAILY [facility] Last Admin: 07/21/17 08:25 Dose: 20 mg Ferrous Sulfate (Ferrous Sulfate) 325 mg PO DAILY [facility] Last Admin: 07/20/17 07:38 Dose: 325 mg Folic Acid (Folic Acid) 1 mg PO DAILY [facility] Last Admin: 07/20/17 07:38 Dose: 1 mg Dextrose/Sodium Chloride (Dextrose 5%-Normal Saline) 1,000 mls @ 150 mls/hr IV ASDIRECTED [facility] Last Admin: 07/21/17 08:24 Dose: 150 mls/hr Influenza Virus Vaccine (Fluzone High-Dose 2016-) 180 mcg IM .ONCE ONE Stop: 07/19/17 16:31 Insulin Aspart (Novolog) 0 unit SUBCUT TIDAC [facility] PRN Reason: Protocol Last Admin: 07/21/17 11:58 Dose: Not Given Insulin Detemir (Levemir) 20 unit SUBCUT DAILY [facility] Last Admin: 07/21/17 11:29 Dose: Not Given Levothyroxine Sodium (Levothyroxine) 75 mcg PO ACBREAKFAST [facility] Last Admin: 07/20/17 07:38 Dose: 75 mcg Lidocaine (Lidoderm 5%) 700 mg TOP DAILY [facility] Last Admin: 07/21/17 08:24 Dose: 700 mg Magnesium Hydroxide (Milk Of Magnesia) 30 ml PO DAILY PRN PRN Reason: Constipation Methyl Salicylate (Icy Hot Cream) 1 gm TOP ASDIRECTED PRN PRN Reason: Pain Last Admin: 07/21/17 05:00 Dose: 1 applic Metoprolol Succinate (Toprol Xl) 50 mg PO DAILY [facility] Last Admin: 07/21/17 09:07 Dose: Not Given Nitroglycerin (Nitrostat) 0.4 mg SL ASDIRECTED PRN PRN Reason: Chest Pain Ondansetron HCl (Zofran) 4 mg IVPUSH Q6H PRN PRN Reason: Nausea/Vomiting Last Admin: 07/20/17 09:59 Dose: 4 mg Pantoprazole Sodium (Protonix Iv) 40 mg IVPUSH Q12H [facility] Last Admin: 07/21/17 12:17 Dose: 40 mg Ropinirole HCl (Requip) 0.25 mg PO DAILY [facility] Last Admin: 07/20/17 07:37 Dose: 0.25 mg Sodium Chloride (Saline Flush) 10 ml FLUSH ASDIRECTED PRN PRN Reason: IV Use Last Admin: 07/21/17 12:17 Dose: 10 ml Ticagrelor (Brilinta) 90 mg PO BID [facility] Last Admin: 07/19/17 07:32 Dose: Not Given Torsemide (Demadex) 20 mg PO DAILY [facility] Last Admin: 07/20/17 07:38 Dose: 20 mg Discontinued Medications Famotidine (Pepcid) 20 mg IVPUSH ONETIME ONE Stop: 07/19/17 01:01 Last Admin: 07/19/17 01:05 Dose: 20 mg Fentanyl (Sublimaze) Confirm Administered Dose 100 mcg .ROUTE .STK-MED ONE Stop: 07/21/17 14:30 Furosemide (Lasix) 40 mg IV NOW ONE Stop: 07/19/17 10:25 Last Admin: 07/19/17 16:48 Dose: 40 mg Furosemide (Lasix) Confirm Administered Dose 40 mg .ROUTE .STK-MED ONE Stop: 07/19/17 16:18 Last Admin: 07/19/17 16:48 Dose: Not Given Linezolid 600 mg/ Premix 300 mls @ 150 mls/hr IV Q12H [facility] Last Admin: 07/20/17 01:01 Dose: 150 mls/hr Piperacillin Sod/Tazobactam (Sod 3.375 gm/ Sodium Chloride) 100 mls @ 200 mls/ hr IV Q6H [facility] Last Admin: 07/19/17 12:05 Dose: 200 mls/hr Sodium Chloride (Normal Saline) 1,000 mls @ 75 mls/hr IV ASDIRECTED [facility] Last Admin: 07/19/17 23:22 Dose: 75 mls/hr Piperacillin Sod/Tazobactam (Sod 2.25 gm/ Sodium Chloride) 100 mls @ 200 mls/ hr IV Q6H [facility] Last Admin: 07/20/17 12:59 Dose: 200 mls/hr Influenza Virus Vaccine (Pharmacy To Dose - Influenza Vaccine) 1 each IM ONETIME ONE Stop: 07/18/17 14:08 Influenza Virus Vaccine (Fluzone High-Dose ) 180 mcg IM .ONCE ONE Stop: 07/18/17 14:16 Insulin Detemir (Levemir) 10 unit SUBCUT ONETIME ONE Stop: 07/21/17 09:19 Last Admin: 07/21/17 11:30 Dose: 10 units Midazolam HCl (Versed 1 Mg/Ml) Confirm Administered Dose 2 mg .ROUTE .STK-MED ONE Stop: 07/21/17 14:30 Pantoprazole Sodium (Protonix) 40 mg PO ACBREAKFAST [facility] Piperacillin Sod/Tazobactam Sod (Zosyn) Confirm Administered Dose 2.25 gm .ROUTE .STK-MED ONE Stop: 07/19/17 19:09 Last Admin: 07/19/17 19:38 Dose: Not Given Sodium Chloride (Saline Flush) 10 ml FLUSH Q12HR [facility] Sodium Chloride (Saline Flush) 10 ml FLUSH Q12H PRN PRN Reason: IV Use Last Admin: 07/21/17 08:25 Dose: 10 ml Tramadol HCl (Ultram) 50 mg PO Q6H PRN PRN Reason: Pain Last Admin: 07/20/17 09:58 Dose: 50 mg - Problem List Review Problem List Initiated/Reviewed/Updated: Yes - Assessment Assessment:: Anemia with possible upper GI bleed - Plan Plan:: EGD
[2017-07-21] MEDS ORDERED: Ondansetron 4 MG/2 ML SDV ONE (14:50)
--- NOTE | 2017-07-21 15:17 | PCM.OPNOTE ---
- General Post-Op/Procedure Note Date of Surgery/Procedure: 07/21/17 Operative Procedure(s): EGD with Biopsy Findings: No definite bleeding site seen. White patches in lower esophagus suggestive of Jessica Esophagitis Pre Op Diagnosis: Anemia with GI bleeding Post-Op Diagnosis: Jessica Esophagitis Anesthesia Technique: MAC Primary Surgeon: Khalif Giron Pathology: Biopsies of gastric antrum and distal esophagus Output, Urine Amount: 0 EBL in mLs: 2 Complications: None Condition: Good Free Text/Narrative:: Intake & Output 07/21/17 07/21/17 07/21/17 06:59 14:59 22:59 Intake Total 30 Balance 30
[2017-07-21] MEDS: Ferrous Sulfate 325 MG Tab PO SCH (16:15)
[2017-07-21] MEDS: Folic Acid 1 MG Tab PO SCH (16:15)
[2017-07-21] MEDS: Levothyroxine 75 MCG Tab PO SCH (16:15)
[2017-07-21] MEDS: rOPINIRole 0.25 MG Tab PO SCH (16:15)
[2017-07-21] MEDS: Cholecalciferol (Vitamin D3) 1,000 Unit Tab PO SCH (16:16)
[2017-07-21] MEDS: Sodium Chloride 0.9% 1,000 ML IV SCH (17:05)
[2017-07-21] MEDS: Acetaminophen/Codeine 300-30 MG Tab PO PRN (17:12)
--- NOTE | 2017-07-21 19:18 | OR ---
Date of Procedure: 07/21/2017 PREOPERATIVE DIAGNOSIS: Anemia with possible upper gastrointestinal bleeding. POSTOPERATIVE DIAGNOSIS: Jessica esophagitis. OPERATION PERFORMED: Esophagogastroduodenoscopy with biopsy. INDICATIONS FOR SURGERY: This 81-year-old male was admitted with progressive weakness and found to be anemic. He has had guaiac-positive gastric contents identified and is referred for diagnostic upper endoscopy. FINDINGS: No active bleeding site was seen during today's exam. No visible signs of ulcers were seen. There was no sign of old blood in the stomach. The patient did have scattered white patches on the mucosa of the lower part of his esophagus suggestive of Jessica esophagitis. The exam otherwise appeared unremarkable. DESCRIPTION OF PROCEDURE: The patient was taken to the operating room. He was given intravenous sedation, and with him in the left lateral decubitus position and with a mouth gag in place, the esophagus was intubated under direct visualization with the Olympus gastroscope. This was carefully advanced down through the esophagus, stomach, and into the duodenum, where examination to the third portion was performed. Careful examination of the duodenum including the duodenal bulb was performed, and no evidence of ulcers or other abnormalities were noted. The scope was withdrawn back into the stomach, where full examination including retroflexed examination of the fundus was performed. Random biopsies of the gastric antrum were taken to rule out H. pylori. The GE junction and lower esophagus were then carefully examined, and findings in the lower esophagus were felt to be consistent with possible fungal esophagitis. The biopsies of the lower esophageal mucosa were taken for diagnostic purposes. The scope was then slowly withdrawn re-examining the esophagus and then removed. With no sign of any complication, the patient was then taken from the operating room. He tolerated the procedure well. ESTIMATED BLOOD LOSS: 2 mL. COMPLICATIONS: None. PROGNOSIS: Good. MAGDIEL Giron MD /[id number]
[2017-07-22] MEDS: Acetaminophen/Codeine 300-30 MG Tab PO PRN (04:23)
[2017-07-22] MEDS: Sodium Chloride 0.9% 1,000 ML IV SCH (04:24)
[2017-07-22] MEDS: Menthol/Methyl Salicylate 85 GM Tube TOP PRN ×2 (04:25→07:59)
[2017-07-22] MEDS: Insulin Aspart 100 Units/ML 3 ML Pen SUBCUT SCH (07:27)
[2017-07-22] MEDS: rOPINIRole 0.25 MG Tab PO SCH (07:29)
[2017-07-22] MEDS: Levothyroxine 75 MCG Tab PO SCH (07:30)
[2017-07-22] MEDS: Ferrous Sulfate 325 MG Tab PO SCH (07:30)
[2017-07-22] MEDS: Cholecalciferol (Vitamin D3) 1,000 Unit Tab PO SCH (07:30)
[2017-07-22] MEDS: Aspirin 81 MG Tab.EC PO SCH (07:30)
[2017-07-22] MEDS: Metoprolol Succinate 50 MG Tab.ER PO SCH (07:32)
[2017-07-22] MEDS: Famotidine 20 MG/2 ML SDV IVPUSH SCH (07:33)
[2017-07-22] MEDS: Folic Acid 1 MG Tab PO SCH (07:33)
[2017-07-22] MEDS: Lidocaine 5% 700 MG Patch TOP SCH (07:33)
[2017-07-22 07:34] VITALS: BP 104/53
[2017-07-22] MEDS: Sodium Chloride 0.9% 10 ML Syringe FLUSH PRN (07:35)
[2017-07-22] MEDS: Acetaminophen 325 MG Tab PO PRN (07:58)
[2017-07-22] MEDS: Ticagrelor 90 MG Tab PO SCH (08:25)
[2017-07-22] MEDS: Insulin Detemir 100 Units/ML 3 ML Pen SUBCUT SCH (08:25)
--- NOTE | 2017-07-22 09:49 | PCM.DCSUM1 ---
Discharge Summary - Hospital Course Free Text/Narrative:: Patient is a 81-year-old who was admitted to the hospital with generalized weakness renal failure congestive heart failure and severe weakness during his hospitalization it was noted that he had a positive emesis and his hemoglobin went down to 8.1 he was transfused 2 units and hemoglobin has stabilized at 10 his renal function has deteriorated secondary to possible diureses he has chronic renal failure with acute dehydration secondary to diuretics at this time his neck pain has improved x-rays revealed osteoarthritis but this is stable as compared to 2013 at this time patient is a good candidate for swing bed admission during this time we'll continue working on his physical therapy and occupational therapy and we will keep an eye on his renal functions - Discharge Data Discharge Date: 07/22/17 Discharge Disposition: DC/Tfer W/I Hosp To [place] [id number] Condition: Good - Discharge Diagnosis/Problem(s) (1) Leukocytosis SNOMED Code(s): 326937892 ICD Code: D72.829 - ELEVATED WHITE BLOOD CELL COUNT, UNSPECIFIED Status: Acute Current Visit: Yes Onset Date: ~07/18/17 Problem Details: White count slightly elevated although decreased from admission will continue observing no focus of infection at this time Qualifiers: Leukocytosis type: monocytosis Qualified Code(s): D72.821 - Monocytosis ( symptomatic) (2) Acute GI bleeding SNOMED Code(s): 97085654 ICD Code: K92.2 - GASTROINTESTINAL HEMORRHAGE, UNSPECIFIED Status: Ruled- out Priority: Low Current Visit: No Onset Date: ~02/07/17 Problem Details: Gastroscopy negative from yesterday. Abdominal X ray positive for air fluid levels. Question ileus. Will continue to monitor. (3) Generalized weakness SNOMED Code(s): 36520044 ICD Code: R53.1 - WEAKNESS Status: Acute Priority: High Current Visit: No Problem Details: Gastroscopy negative from yesterday. Abdominal X ray positive for air fluid levels. Question ileus. Will continue to monitor. Patient working with PT/OT - will continue this as a swingbed patient. (4) Anemia SNOMED Code(s): 751416750 ICD Code: D64.9 - ANEMIA, UNSPECIFIED Status: Chronic Priority: Medium Current Visit: No Problem Details: Gastroscopy negative from yesterday. Abdominal X ray positive for air fluid levels. Question ileus. Will continue to monitor. HGB stable at 10 today. 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 Qualifiers: Acute renal failure type: unspecified Chronic kidney disease stage: unspecified stage Qualified Code(s): N17.9 - Acute kidney failure, unspecified ; N18.9 - Chronic kidney disease, unspecified; N18.9 - Chronic kidney disease, unspecified - Patient Summary/Data Operative Procedure(s) Performed: EGD with Biopsy- negative on 07-21-17 Consults: Consultations 07/18/17 13:19 Consult to Occupational Therapy [OT Evaluation and Treatment] [CONS] Routine Consult to Physical Therapy [PT Evaluation and Treatment] [CONS] Routine 07/18/17 14:48 Consult to Case Management [CONS] Routine 07/21/17 06:00 Consult to Physician [CONS] Urgent - Discharge Plan Home Medications: Home Meds Allopurinol [Zyloprim] 200 mg PO DAILY 04/25/15 [History] Aspirin [Halfprin] 81 mg PO DAILY 04/25/15 [History] Folic Acid 1 mg PO DAILY 04/25/15 [History] Torsemide 20 mg PO DAILY 04/25/15 [History] Levothyroxine 75 mcg PO ACBREAKFAST #30 tablet 06/11/15 [Rx] Insulin Detemir [Levemir] 20 unit SUBCUT DAILY 10/16/15 [History] Cholecalciferol (Vitamin D3) [Vitamin D3] 2,000 unit PO DAILY 01/25/17 [History] Insulin Aspart [Novolog Flexpen] 10 units SUBCUT DAILY 01/25/17 [History] Metoprolol Succinate [Toprol XL] 50 mg PO DAILY 01/25/17 [History] Nitroglycerin [Nitrostat] 0.4 mg SL ASDIRECTED PRN 01/25/17 [History] Ticagrelor [Brilinta] 90 mg PO BID 01/25/17 [History] Pantoprazole [ProTONIX] 40 mg PO ACBREAKFAST 02/15/17 [History] Ferrous Sulfate 325 mg PO DAILY 07/18/17 [History] rOPINIRole HCl [Requip] 0.25 mg PO DAILY 07/18/17 [History] Patient Handouts: Fall Prevention in the Home, [id number], Leukocytosis, Iron Deficiency Anemia, Adult, Blood Transfusion, Care After, [id number] Referrals: Keisha Yang SAP BI ARCHITECT [Nurse Practitioner] - João Chavez MD [Primary Care Provider] - - Discharge Summary/Plan Comment DC Time >30 min.: Yes (40 min) - General Info Date of Service: 07/22/17 - Review of Systems General: Reports: Weakness HEENT: Reports: Other (neck pain related to recent fall ) Pulmonary: Reports: No Symptoms Cardiovascular: Reports: No Symptoms Gastrointestinal: Reports: Flatus, Other (distended; does report having a BM ) Genitourinary: Reports: No Symptoms Musculoskeletal: Reports: Neck Pain Skin: Reports: No Symptoms Neurological: Denies: Confusion (patient has cofusion yesterday; seems to be better today ) Psychiatric: Reports: No Symptoms - Patient Data Vitals - Most Recent: Last Vital Signs Temp 97.3 F 07/22/17 04:30 Pulse 69 07/22/17 07:32 Resp 20 07/22/17 04:30 BP 104/53 L 07/22/17 07:32 Pulse Ox 90 L 07/22/17 04:30 Weight - Most Recent: 204 lb 8 oz I&O - Last 24 hours: Intake & Output 07/21/17 07/22/17 07/22/17 22:59 06:59 14:59 Intake Total 320 1081 450 Output Total 0 300 Balance 320 781 450 Lab Results - Last 24 hrs: Laboratory Results - last 24 hr 07/21/17 07/21/17 07/22/17 Range/Units 11:41 17:04 07:26 WBC (4.0-10.2) K/uL RBC (4.33-5.41) M/uL Hgb (13.1-16.8) g/dL Hct (39.0-49.0) % MCV (84.0-98.0) fL MCH (28.2-33.3) pg MCHC (31.7-36.0) g/dL RDW (11.2-14.1) % Plt Count (150-350) K/uL Neut % (Auto) (45.0-80.0) % Lymph % (Auto) (10.0-50.0) % [place] % (Auto) (2.0-14.0) % Eos % (Auto) (0.0-5.0) % Baso % (Auto) (0.0-2.0) % Neut # (Auto) (1.40-7.00) K/uL Lymph # (Auto) (0.50-3.50) K/uL [place] # (Auto) (0.00-1.00) K/uL Eos # (Auto) (0.00-0.50) K/uL Baso # (Auto) (0.00-0.20) K/uL Sodium (136-145) mmol/L Potassium (3.5-5.1) mmol/L Chloride (98-107) mmol/L Carbon Dioxide (21.0-32.0) mmol/L BUN (7-18) mg/dL Creatinine (0.51-1.17) mg/dL Est Cr Clr Drug Dosing mL/min Estimated GFR (MDRD) mL/min Glucose (74-106) mg/dL POC Glucose 110 102 93 (65-110) mg/dl Calcium (8.5-10.1) mg/dL NT-Pro-B Natriuret Pep (0-125) pg/mL 07/22/17 07/22/17 Range/Units 09:05 09:05 WBC 21.6 H (4.0-10.2) K/uL RBC 3.33 L (4.33-5.41) M/uL Hgb 10.0 L (13.1-16.8) g/dL Hct 30.4 L (39.0-49.0) % MCV 91.3 (84.0-98.0) fL MCH 30.0 (28.2-33.3) pg MCHC 32.9 (31.7-36.0) g/dL RDW 17.7 H (11.2-14.1) % Plt Count 180 (150-350) K/uL Neut % (Auto) 82.4 H (45.0-80.0) % Lymph % (Auto) 6.9 L (10.0-50.0) % [place] % (Auto) 7.0 (2.0-14.0) % Eos % (Auto) 3.4 (0.0-5.0) % Baso % (Auto) 0.3 (0.0-2.0) % Neut # (Auto) 17.77 H (1.40-7.00) K/uL Lymph # (Auto) 1.48 (0.50-3.50) K/uL [place] # (Auto) 1.52 H (0.00-1.00) K/uL Eos # (Auto) 0.74 H (0.00-0.50) K/uL Baso # (Auto) 0.06 (0.00-0.20) K/uL Sodium 137 (136-145) mmol/L Potassium 4.1 (3.5-5.1) mmol/L Chloride 103 (98-107) mmol/L Carbon Dioxide 21.8 (21.0-32.0) mmol/L BUN 76 H (7-18) mg/dL Creatinine 3.83 H* (0.51-1.17) mg/dL Est Cr Clr Drug Dosing 17.17 mL/min Estimated GFR (MDRD) 15 mL/min Glucose 138 H (74-106) mg/dL POC Glucose (65-110) mg/dl Calcium 8.5 (8.5-10.1) mg/dL NT-Pro-B Natriuret Pep 60871 H (0-125) pg/mL Med Orders - Current: Current Medications Acetaminophen (Tylenol) 650 mg PO Q4H PRN PRN Reason: Pain Last Admin: 07/22/17 07:58 Dose: 650 mg Acetaminophen/Codeine Phosphate (Tylenol With Codeine No.3 300mg/30mg) 1 tab PO Q6H PRN PRN Reason: Pain Last Admin: 07/22/17 04:23 Dose: 1 tab Aspirin (Halfprin) 81 mg PO DAILY [facility] Last Admin: 07/22/17 07:30 Dose: 81 mg Cholecalciferol (Vitamin D3) 2,000 units PO DAILY [facility] Last Admin: 07/22/17 07:30 Dose: 2,000 units Famotidine (Pepcid) 20 mg IVPUSH DAILY [facility] Last Admin: 07/22/17 07:33 Dose: 20 mg Ferrous Sulfate (Ferrous Sulfate) 325 mg PO DAILY [facility] Last Admin: 07/22/17 07:30 Dose: 325 mg Folic Acid (Folic Acid) 1 mg PO DAILY [facility] Last Admin: 07/22/17 07:33 Dose: 1 mg Sodium Chloride (Normal Saline) 1,000 mls @ 75 mls/hr IV ASDIRECTED [facility] Last Admin: 07/22/17 04:24 Dose: 75 mls/hr Influenza Virus Vaccine (Fluzone High-Dose ) 180 mcg IM .ONCE ONE Stop: 07/19/17 16:31 Insulin Aspart (Novolog) 0 unit SUBCUT TIDAC [facility] PRN Reason: Protocol Last Admin: 07/22/17 07:27 Dose: Not Given Insulin Detemir (Levemir) 20 unit SUBCUT DAILY [facility] Last Admin: 07/22/17 08:25 Dose: 20 unit Levothyroxine Sodium (Levothyroxine) 75 mcg PO ACBREAKFAST [facility] Last Admin: 07/22/17 07:30 Dose: 75 mcg Lidocaine (Lidoderm 5%) 700 mg TOP DAILY [facility] Last Admin: 07/22/17 07:33 Dose: 700 mg Magnesium Hydroxide (Milk Of Magnesia) 30 ml PO DAILY PRN PRN Reason: Constipation Methyl Salicylate (Icy Hot Cream) 1 gm TOP ASDIRECTED PRN PRN Reason: Pain Last Admin: 07/22/17 07:59 Dose: 1 applic Metoprolol Succinate (Toprol Xl) 50 mg PO DAILY [facility] Last Admin: 07/22/17 07:32 Dose: Not Given Nitroglycerin (Nitrostat) 0.4 mg SL ASDIRECTED PRN PRN Reason: Chest Pain Ondansetron HCl (Zofran) 4 mg IVPUSH Q6H PRN PRN Reason: Nausea/Vomiting Last Admin: 07/21/17 14:45 Dose: 4 mg Pantoprazole Sodium (Protonix Iv) 40 mg IVPUSH Q12H [facility] Last Admin: 07/21/17 23:01 Dose: 40 mg Ropinirole HCl (Requip) 0.25 mg PO DAILY [facility] Last Admin: 07/22/17 07:29 Dose: 0.25 mg Sodium Chloride (Saline Flush) 10 ml FLUSH ASDIRECTED PRN PRN Reason: IV Use Last Admin: 07/22/17 07:35 Dose: 10 ml Ticagrelor (Brilinta) 90 mg PO BID [facility] Last Admin: 07/22/17 08:25 Dose: 90 mg Torsemide (Demadex) 20 mg PO DAILY [facility] Last Admin: 07/22/17 07:30 Dose: 20 mg Discontinued Medications Famotidine (Pepcid) 20 mg IVPUSH ONETIME ONE Stop: 07/19/17 01:01 Last Admin: 07/19/17 01:05 Dose: 20 mg Fentanyl (Sublimaze) Confirm Administered Dose 100 mcg .ROUTE .STK-MED ONE Stop: 07/21/17 14:30 Last Admin: 07/21/17 15:45 Dose: Not Given Furosemide (Lasix) 40 mg IV NOW ONE Stop: 07/19/17 10:25 Last Admin: 07/19/17 16:48 Dose: 40 mg Furosemide (Lasix) Confirm Administered Dose 40 mg .ROUTE .STK-MED ONE Stop: 07/19/17 16:18 Last Admin: 07/19/17 16:48 Dose: Not Given Linezolid 600 mg/ Premix 300 mls @ 150 mls/hr IV Q12H [facility] Last Admin: 07/20/17 01:01 Dose: 150 mls/hr Piperacillin Sod/Tazobactam (Sod 3.375 gm/ Sodium Chloride) 100 mls @ 200 mls/ hr IV Q6H [facility] Last Admin: 07/19/17 12:05 Dose: 200 mls/hr Sodium Chloride (Normal Saline) 1,000 mls @ 75 mls/hr IV ASDIRECTED [facility] Last Admin: 07/19/17 23:22 Dose: 75 mls/hr Piperacillin Sod/Tazobactam (Sod 2.25 gm/ Sodium Chloride) 100 mls @ 200 mls/ hr IV Q6H [facility] Last Admin: 07/20/17 12:59 Dose: 200 mls/hr Dextrose/Sodium Chloride (Dextrose 5%-Normal Saline) 1,000 mls @ 150 mls/hr IV ASDIRECTED [facility] Last Admin: 07/21/17 08:24 Dose: 150 mls/hr Lactated Ringer's (Ringers, Lactated) 1,000 mls @ 150 mls/hr IV ASDIRECTED [facility] Stop: 07/21/17 21:23 Last Admin: 07/21/17 14:45 Dose: 150 mls/hr Influenza Virus Vaccine (Pharmacy To Dose - Influenza Vaccine) 1 each IM ONETIME ONE Stop: 07/18/17 14:08 Influenza Virus Vaccine (Fluzone High-Dose 2017-18) 180 mcg IM .ONCE ONE Stop: 07/18/17 14:16 Insulin Detemir (Levemir) 10 unit SUBCUT ONETIME ONE Stop: 07/21/17 09:19 Last Admin: 07/21/17 11:30 Dose: 10 units Midazolam HCl (Versed 1 Mg/Ml) Confirm Administered Dose 2 mg .ROUTE .STK-MED ONE Stop: 07/21/17 14:30 Last Admin: 07/21/17 15:46 Dose: Not Given Pantoprazole Sodium (Protonix) 40 mg PO ACBREAKFAST [facility] Piperacillin Sod/Tazobactam Sod (Zosyn) Confirm Administered Dose 2.25 gm .ROUTE .STK-MED ONE Stop: 07/19/17 19:09 Last Admin: 07/19/17 19:38 Dose: Not Given Sodium Chloride (Saline Flush) 10 ml FLUSH Q12HR [facility] Sodium Chloride (Saline Flush) 10 ml FLUSH Q12H PRN PRN Reason: IV Use Last Admin: 07/21/17 08:25 Dose: 10 ml Tramadol HCl (Ultram) 50 mg PO Q6H PRN PRN Reason: Pain Last Admin: 07/20/17 09:58 Dose: 50 mg - Exam General: Reports: Alert, Oriented HEENT: Reports: Pupils Equal, Pupils Reactive, EOMI, Mucous Membr. Moist/[place] Neck: Reports: Supple Lungs: Reports: Clear to Auscultation, Normal Respiratory Effort Cardiovascular: Reports: Regular Rate, Regular Rhythm GI/Abdominal Exam: Normal Bowel Sounds, Soft, No Mass, Pelvis Stable, Distended (Male) Exam: Hernia Rectal (Males) Exam: Deferred Back Exam: Reports: Normal Inspection, Full Range of Motion Extremities: Normal Inspection, Normal Range of Motion, Non-Tender, No Pedal Edema, Normal Capillary Refill Skin: Reports: Warm, Dry, Intact Neurological: Reports: No New Focal Deficit Psy/Mental Status: Reports: Alert, Normal Affect, Normal Mood *Q Meaningful Use (DIS) - VTE *Q VTE Criteria *Q: VTE Mechanical Contraindications *Q: At Risk for Falls VTE Pharmacological Contraindications *Q: Renal Impairment - Stroke *Q Stroke Criteria *Q: - AMI *Q AMI Criteria *Q:
== END 2017-07-22 10:10 | disposition swing bed (61) | DRG 815 ==
LOC: LL.CLIN 10:30 → LL.LAB 10:30 → UNDOADMIN 11:55 → LL.MS 11:55 → UNDODISIN 07-22 10:10
PROVIDERS: ADMIT Nurse Practitioner; ATTEND Family Medicine
PROC: 0DB68ZX Excision of Stomach, Via Natural or Artificial Opening Endoscopic, Diagnostic (ICD-10-PCS; principal; 2017-07-21)
DX: D72.821 Monocytosis (symptomatic) (principal); N17.9 Acute kidney failure, unspecified; K92.0 Hematemesis; B37.81 Candidal esophagitis; I42.9 Cardiomyopathy, unspecified; I13.0 Hypertensive heart and chronic kidney disease with heart failure and stage 1 through stage 4 chronic kidney disease, or unspecified chronic kidney disease; N18.4 Chronic kidney disease, stage 4 (severe); R53.1 Weakness; D64.9 Anemia, unspecified; R06.02 Shortness of breath; R51 Headache; D50.0 Iron deficiency anemia secondary to blood loss (chronic); I50.9 Heart failure, unspecified; E86.0 Dehydration; M47.892 Other spondylosis, cervical region; Z79.82 Long term (current) use of aspirin; Z79.4 Long term (current) use of insulin; Z79.899 Other long term (current) drug therapy; H91.93 Unspecified hearing loss, bilateral; H54.7 Unspecified visual loss; I48.91 Unspecified atrial fibrillation; I25.10 Atherosclerotic heart disease of native coronary artery without angina pectoris; Z95.5 Presence of coronary angioplasty implant and graft; Z95.0 Presence of cardiac pacemaker; E78.5 Hyperlipidemia, unspecified; J44.9 Chronic obstructive pulmonary disease, unspecified; K21.9 Gastro-esophageal reflux disease without esophagitis; N40.1 Benign prostatic hyperplasia with lower urinary tract symptoms; N39.498 Other specified urinary incontinence; M19.90 Unspecified osteoarthritis, unspecified site; G89.29 Other chronic pain; M10.9 Gout, unspecified; G30.9 Alzheimer's disease, unspecified; F02.80 Dementia in other diseases classified elsewhere, unspecified severity, without behavioral disturbance, psychotic disturbance, mood disturbance, and anxiety; E11.40 Type 2 diabetes mellitus with diabetic neuropathy, unspecified; E03.9 Hypothyroidism, unspecified; E55.9 Vitamin D deficiency, unspecified; E53.8 Deficiency of other specified B group vitamins; D50.9 Iron deficiency anemia, unspecified; Z87.891 Personal history of nicotine dependence; Z91.81 History of falling
CPT/HCPCS: 00740; 36415; 36430; 71020; 72040; 74020; 80048; 80053; 81001; 82272; 82728; 82962; 83540; 83550; 83605; 83880; 85025; 86850; 86900; 86901; 86920; 86922; 88305; 88312; 97140-GP; 97163-GP; 99214; 99214-GF; A9270-GY; C9113; J1815-GY; J1940; J2020; J2250; J2405; J2543; J3010; J7030; J7042; J7050; J7120; P9016; S0028

== ENCOUNTER 2017-07-22 09:59 | Inpatient (IN) | payer MEDICARE, BC ==
[2017-07-22] MEDS ORDERED: Ondansetron 4 MG Tab.DIS PO PRN (10:00)
[2017-07-22] MEDS ORDERED: FLU Vacc TS 2017-18 (65yr UP)/PF 180 MCG/0.5 ML Syringe IM ONE (10:00)
[2017-07-22] MEDS ORDERED: Nitroglycerin 0.4 MG Tab.SL SL PRN (10:00)
[2017-07-22] MEDS ORDERED: Magnesium Hydroxide 400 MG/5 ML Susp 30 ML Cup PO PRN (10:00)
[2017-07-22] MEDS ORDERED: Sodium Chloride 0.9% 10 ML Syringe FLUSH PRN (10:00)
--- NOTE | 2017-07-22 10:10 | PCM.SN ---
- Free Text/Narrative Note: Please use DC summary from acute account as Swingbed H&P
[2017-07-22] MEDS: Furosemide 20 MG/2 ML VIAL IVPUSH SCH (11:38)
[2017-07-22] MEDS: Insulin Aspart 100 Units/ML 3 ML Pen SUBCUT SCH ×2 (11:41→17:04)
[2017-07-22] MEDS ORDERED: Acetaminophen 325 MG Tab PO PRN (12:00)
[2017-07-22] MEDS: Acetaminophen/Codeine 300-30 MG Tab PO PRN (12:51)
[2017-07-22] MEDS: Menthol/Methyl Salicylate 85 GM Tube TOP PRN (12:51)
--- NOTE | 2017-07-22 13:27 | PCM.SN ---
- Free Text/Narrative Note: Patient 81-year-old who was transferred to swing bed at this time an ultrasound was ordered and done revealed bilateral hydronephrosis with urinary retention and ascites patient has been incontinent of urine as because of overflow incontinence I will go ahead and put a Anne catheter to see if his renal functions improve. Spoke with son about father's condition and probable prognosis if kidney function does not return understood and agreed with plan
[2017-07-22] MEDS: Nystatin Susp 100,000 Unit/ML 5 ML UD Cup PO SCH ×2 (16:09→21:53)
[2017-07-22] MEDS: Ticagrelor 90 MG Tab PO SCH (17:17)
[2017-07-22] MEDS ORDERED: LIDOCAINE PATCH REMOVAL TRDERM SCH (20:00)
[2017-07-22] MEDS: Sodium Chloride 0.9% 10 ML Syringe FLUSH SCH (21:53)
[2017-07-23] MEDS ORDERED: Levothyroxine 75 MCG Tab PO SCH (07:30)
[2017-07-23] MEDS ORDERED: Pantoprazole 40 MG Tab.CR PO SCH (07:30)
[2017-07-23] MEDS ORDERED: Folic Acid 1 MG Tab PO SCH (08:00)
[2017-07-23] MEDS ORDERED: Metoprolol Succinate 50 MG Tab.ER PO SCH (08:00)
[2017-07-23] MEDS ORDERED: Lidocaine 5% 700 MG Patch TOP SCH (08:00)
[2017-07-23] MEDS ORDERED: Insulin Detemir 100 Units/ML 3 ML Pen SUBCUT SCH (08:00)
[2017-07-23] MEDS ORDERED: rOPINIRole 0.25 MG Tab PO SCH (08:00)
[2017-07-23] MEDS ORDERED: Aspirin 81 MG Tab.EC PO SCH (08:00)
[2017-07-23] MEDS ORDERED: Ferrous Sulfate 325 MG Tab PO SCH (08:00)
[2017-07-23] MEDS ORDERED: Cholecalciferol (Vitamin D3) 1,000 Unit Tab PO SCH (08:00)
[2017-07-23] MEDS: Nystatin Susp 100,000 Unit/ML 5 ML UD Cup PO SCH (08:08)
[2017-07-23] MEDS: Ticagrelor 90 MG Tab PO SCH (08:08)
[2017-07-23] MEDS: Furosemide 20 MG/2 ML VIAL IVPUSH SCH (08:08)
[2017-07-23] MEDS: Menthol/Methyl Salicylate 85 GM Tube TOP PRN (08:08)
[2017-07-23] MEDS: Acetaminophen/Codeine 300-30 MG Tab PO PRN (08:09)
[2017-07-23] MEDS: Sodium Chloride 0.9% 10 ML Syringe FLUSH SCH (08:10)
[2017-07-23] MEDS: Insulin Aspart 100 Units/ML 3 ML Pen SUBCUT SCH (09:29)
--- NOTE | 2017-07-23 10:19 | PCM.PN ---
- General Info Date of Service: 07/23/17 Admission Dx/Problem (Free Text): weakness Renal failure acute on chronic Congestive heart failure Ascites Patient had 1 emesis which was positive for occult blood hemoglobin was down to 8 with generalized weakness as symptoms and we proceeded to transfuse him 2 units immobile and went up to 10 generalized weakness improved Functional Status: Reports: Pain Controlled - Review of Systems General: Reports: Weakness HEENT: Reports: No Symptoms Pulmonary: Reports: Shortness of Breath Gastrointestinal: Reports: Other (Ascites, ventral hernia) Genitourinary: Reports: Incontinence, Retention Musculoskeletal: Reports: Neck Pain Skin: Reports: No Symptoms Neurological: Reports: No Symptoms Psychiatric: Reports: No Symptoms - Patient Data Vitals - Most Recent: Last Vital Signs Temp 98.3 F 07/22/17 20:00 Pulse 60 07/23/17 08:00 Resp 14 07/23/17 08:00 BP 109/51 L 07/23/17 09:29 Pulse Ox 99 07/23/17 08:00 Weight - Most Recent: 220 lb 8 oz I&O - Last 24 Hours: Intake & Output 07/22/17 07/23/17 07/23/17 22:59 06:59 14:59 Intake Total 50 50 600 Output Total 750 225 Balance -700 -175 600 Lab Results Last 24 Hours: Laboratory Results - last 24 hr 07/22/17 07/22/17 07/23/17 Range/Units 11:40 17:01 07:36 WBC (4.0-10.2) K/uL RBC (4.33-5.41) M/uL Hgb (13.1-16.8) g/dL Hct (39.0-49.0) % MCV (84.0-98.0) fL MCH (28.2-33.3) pg MCHC (31.7-36.0) g/dL RDW (11.2-14.1) % Plt Count (150-350) K/uL Neut % (Auto) (45.0-80.0) % Lymph % (Auto) (10.0-50.0) % [place] % (Auto) (2.0-14.0) % Eos % (Auto) (0.0-5.0) % Baso % (Auto) (0.0-2.0) % Neut # (Auto) (1.40-7.00) K/uL Lymph # (Auto) (0.50-3.50) K/uL [place] # (Auto) (0.00-1.00) K/uL Eos # (Auto) (0.00-0.50) K/uL Baso # (Auto) (0.00-0.20) K/uL Sodium (136-145) mmol/L Potassium (3.5-5.1) mmol/L Chloride (98-107) mmol/L Carbon Dioxide (21.0-32.0) mmol/L BUN (7-18) mg/dL Creatinine (0.51-1.17) mg/dL Est Cr Clr Drug Dosing mL/min Estimated GFR (MDRD) mL/min Glucose (74-106) mg/dL POC Glucose 118 H 129 H 76 (65-110) mg/dl Calcium (8.5-10.1) mg/dL NT-Pro-B Natriuret Pep (0-125) pg/mL 07/23/17 07/23/17 07/23/17 Range/Units 07:45 07:45 07:45 WBC 24.1 H (4.0-10.2) K/uL RBC 3.37 L (4.33-5.41) M/uL Hgb 10.1 L (13.1-16.8) g/dL Hct 30.4 L (39.0-49.0) % MCV 90.2 (84.0-98.0) fL MCH 30.0 (28.2-33.3) pg MCHC 33.2 (31.7-36.0) g/dL RDW 17.3 H (11.2-14.1) % Plt Count 183 (150-350) K/uL Neut % (Auto) 82.1 H (45.0-80.0) % Lymph % (Auto) 5.8 L (10.0-50.0) % [place] % (Auto) 8.0 (2.0-14.0) % Eos % (Auto) 3.8 (0.0-5.0) % Baso % (Auto) 0.3 (0.0-2.0) % Neut # (Auto) 19.75 H (1.40-7.00) K/uL Lymph # (Auto) 1.39 (0.50-3.50) K/uL [place] # (Auto) 1.93 H (0.00-1.00) K/uL Eos # (Auto) 0.92 H (0.00-0.50) K/uL Baso # (Auto) 0.07 (0.00-0.20) K/uL Sodium 138 (136-145) mmol/L Potassium 4.0 (3.5-5.1) mmol/L Chloride 105 (98-107) mmol/L Carbon Dioxide 17.7 L (21.0-32.0) mmol/L BUN 80 H (7-18) mg/dL Creatinine 4.32 H* (0.51-1.17) mg/dL Est Cr Clr Drug Dosing 15.24 mL/min Estimated GFR (MDRD) 13 mL/min Glucose 96 (74-106) mg/dL POC Glucose (65-110) mg/dl Calcium 8.6 (8.5-10.1) mg/dL NT-Pro-B Natriuret Pep 16486 H (0-125) pg/mL Med Orders - Current: Current Medications Acetaminophen (Tylenol) 650 mg PO Q4H PRN PRN Reason: Pain Acetaminophen/Codeine Phosphate (Tylenol With Codeine No.3 300mg/30mg) 1 tab PO Q6H PRN PRN Reason: Pain Last Admin: 07/23/17 08:09 Dose: 1 tab Aspirin (Halfprin) 81 mg PO DAILY [facility] Last Admin: 07/23/17 08:08 Dose: 81 mg Cholecalciferol (Vitamin D3) 2,000 units PO DAILY [facility] Last Admin: 07/23/17 08:09 Dose: 2,000 units Ferrous Sulfate (Ferrous Sulfate) 325 mg PO DAILY [facility] Last Admin: 07/23/17 08:09 Dose: 325 mg Folic Acid (Folic Acid) 1 mg PO DAILY [facility] Last Admin: 07/23/17 08:09 Dose: 1 mg Furosemide (Lasix) 20 mg IVPUSH DAILY [facility] Last Admin: 07/23/17 08:08 Dose: 20 mg Influenza Virus Vaccine (Fluzone High-Dose 2016-) 180 mcg IM .ONCE ONE Stop: 07/22/17 10:01 Insulin Aspart (Novolog) 0 unit SUBCUT TIDAC [facility] PRN Reason: Protocol Last Admin: 07/23/17 09:29 Dose: Not Given Insulin Detemir (Levemir) 20 unit SUBCUT DAILY [facility] Last Admin: 07/23/17 08:55 Dose: 20 units Levothyroxine Sodium (Levothyroxine) 75 mcg PO ACBREAKFAST [facility] Last Admin: 07/23/17 08:08 Dose: 75 mcg Lidocaine (Lidoderm 5%) 700 mg TOP DAILY [facility] Last Admin: 07/23/17 08:07 Dose: 700 mg Magnesium Hydroxide (Milk Of Magnesia) 30 ml PO DAILY PRN PRN Reason: Constipation Methyl Salicylate (Icy Hot Cream) 1 gm TOP ASDIRECTED PRN PRN Reason: Pain Last Admin: 07/23/17 08:08 Dose: 1 applic Metoprolol Succinate (Toprol Xl) 50 mg PO DAILY [facility] Last Admin: 07/23/17 09:29 Dose: Not Given Miscellaneous Information (Remove Patch) 1 ea TRDERM BEDTIME [facility] Last Admin: 07/22/17 21:53 Dose: 1 ea Nitroglycerin (Nitrostat) 0.4 mg SL ASDIRECTED PRN PRN Reason: Chest Pain Nystatin (Mycostatin) 5 ml PO QID [facility] Stop: 08/01/17 12:01 Last Admin: 07/23/17 08:08 Dose: 5 ml Ondansetron HCl (Zofran Odt) 4 mg PO Q6H PRN PRN Reason: Nausea/Vomiting Pantoprazole Sodium (Protonix) 40 mg PO ACBREAKFAST [facility] Last Admin: 07/23/17 08:09 Dose: 40 mg Ropinirole HCl (Requip) 0.25 mg PO DAILY [facility] Last Admin: 07/23/17 08:08 Dose: 0.25 mg Sodium Chloride (Saline Flush) 10 ml FLUSH ASDIRECTED PRN PRN Reason: IV Use Last Admin: 07/22/17 11:39 Dose: 10 ml Sodium Chloride (Saline Flush) 10 ml FLUSH Q12HR [facility] Last Admin: 07/23/17 08:10 Dose: 10 ml Ticagrelor (Brilinta) 90 mg PO BID [facility] Last Admin: 07/23/17 08:08 Dose: 90 mg Torsemide (Demadex) 20 mg PO DAILY [facility] Last Admin: 07/23/17 08:08 Dose: 20 mg - Exam General: Alert, Oriented, Cooperative HEENT: Pupils Equal Neck: Supple Lungs: Rales (In the bases) Cardiovascular: Regular Rate, Regular Rhythm, Murmurs (3/6 systolic murmur) GI/Abdominal Exam: Normal Bowel Sounds, Soft, Distended, Other (Ventral hernia) (Male) Exam: Other (Anne catheter) Back Exam: Muscle Spasm, Paraspinal Tenderness (Over the cervical and upper back with ecchymosis secondary to fall), Other Extremities: Normal Inspection, Normal Range of Motion, Non-Tender, No Pedal Edema, Normal Capillary Refill Skin: Warm, Dry, Intact Neurological: No New Focal Deficit - Problem List & Annotations (1) Abdominal pain SNOMED Code(s): 91352371 Code(s): R10.9 - UNSPECIFIED ABDOMINAL PAIN Status: Acute Priority: High Current Visit: No Onset Date: 05/10/15 Qualifiers: Abdominal location: left upper quadrant Qualified Code(s): R10.12 - Left upper quadrant pain Annotation/Comment:: As above (2) Diabetes type 2, uncontrolled SNOMED Code(s): 00593634 Code(s): E11.65 - TYPE 2 DIABETES MELLITUS WITH HYPERGLYCEMIA Status: Acute Current Visit: No Qualifiers: Diabetes mellitus complication status: with kidney complications Diabetes mellitus complication detail: with chronic kidney disease Diabetes mellitus manager intermediate insulin use: with [facility] use Chronic kidney disease stage: stage 4 (severe) Qualified Code(s): E11.22 - Type 2 diabetes mellitus with diabetic chronic kidney disease; E11.65 - Type 2 diabetes mellitus with hyperglycemia; N18.4 - Chronic kidney disease, stage 4 (severe); Z79.4 - prison (current) use of insulin (3) Diabetic nephropathy Status: Acute Priority: Medium Current Visit: No Qualifiers: Diabetes mellitus type: type 2 Qualified Code(s): E11.21 - Type 2 diabetes mellitus with diabetic nephropathy Annotation/Comment:: Renal functions worsening will transfer to [facility] for further treatment if indicated (4) Generalized weakness SNOMED Code(s): 83260726 Code(s): R53.1 - WEAKNESS Status: Acute Priority: High Current Visit: No Annotation/Comment:: Gastroscopy negative from yesterday. Abdominal X ray positive for air fluid levels. Question ileus. Will continue to monitor. Patient working with PT/OT - will continue this as a swingbed patient. - Problem List Review Problem List Initiated/Reviewed/Updated: Yes - My Orders Last 24 Hours: My Active Orders 07/22/17 10:00 Antiembolic Devices [RC] .PRN Antiembolic Devices [RC] Blood Glucose Check, Bedside [RC] TIDMEALS Daily Weight [Height and Weight] [RC] DAILY Consult to Case Management [CONS] Routine Consult to Occupational Therapy [OT Evaluation and Treatment] [CONS] Routine Consult to Physical Therapy [PT Evaluation and Treatment] [CONS] Routine Acetaminophen/Codeine [Tylenol with Codeine No.3 300MG/30MG] 1 tab PO Q6H PRN FLU Vacc [id number](65YR UP)/PF [Fluzone High-Dose ] 180 mcg IM .ONCE ONE Magnesium Hydroxide [Milk of Magnesia] 30 ml PO DAILY PRN Menthol/Methyl Salicylate [Icy Hot Cream] 1 gm TOP ASDIRECTED PRN Nitroglycerin [Nitrostat] 0.4 mg SL ASDIRECTED PRN Ondansetron [Zofran ODT] 4 mg PO Q6H PRN Sodium Chloride 0.9% [Saline Flush] 10 ml FLUSH ASDIRECTED PRN JERALD Hose [Antiembolic Hose] [OM.PC] Routine 07/22/17 10:02 Patient Status [ADT] Routine 07/22/17 10:03 Intake and Output Strict [RC] 06,14,07/22/17 10:04 Vital Signs [RC] QSHIFT Renal Comp [US] Routine 07/22/17 10:06 Code Status [Resuscitation Status] Routine 07/22/17 10:08 CREATININE,URINE 24HR [URCHEM] Routine 07/22/17 10:09 Urinary Catheter Assessment [RC] 07/22/17 10:15 Insert Urinary Catheter [OM.PC] Q24H Furosemide [Lasix] 20 mg IVPUSH DAILY 07/22/17 11:30 Insulin Aspart [NovoLOG] See Protocol SUBCUT TIDAC 07/22/17 12:00 Acetaminophen [Tylenol] 650 mg PO Q4H PRN 07/22/17 16:00 Nystatin [Mycostatin] 5 ml PO QID 07/22/17 18:00 Ticagrelor [Brilinta] 90 mg PO BID 07/22/17 20:00 Remove Patch 1 ea TRDERM BEDTIME Sodium Chloride 0.9% [Saline Flush] 10 ml FLUSH Q12HR 07/22/17 Dinner ADA Diabetic [[employer] Diet] [DIET] 07/23/17 07:30 Levothyroxine 75 mcg PO ACBREAKFAST Pantoprazole [ProTONIX] 40 mg PO ACBREAKFAST 07/23/17 08:00 Aspirin [Halfprin] 81 mg PO DAILY Cholecalciferol (Vitamin D3) [Vitamin D3] 2,000 units PO DAILY Ferrous Sulfate 325 mg PO DAILY Folic Acid 1 mg PO DAILY Insulin Detemir [Levemir] 20 unit SUBCUT DAILY Lidocaine 5% [Lidoderm 5%] 700 mg TOP DAILY Metoprolol Succinate [Toprol XL] 50 mg PO DAILY Torsemide [Demadex] 20 mg PO DAILY rOPINIRole [Requip] 0.25 mg PO DAILY 07/25/17 05:11 CBC WITH AUTO DIFF [HEME] Q2D PRO B-TYPE NATRIUR PEPT,BNPPRO [CHEM] Q2D 07/25/17 09:08 BASIC METABOLIC PANEL,BMP [CHEM] Q2D 07/27/17 05:11 CBC WITH AUTO DIFF [HEME] Q2D PRO B-TYPE NATRIUR PEPT,BNPPRO [CHEM] Q2D 07/27/17 09:08 BASIC METABOLIC PANEL,BMP [CHEM] Q2D 07/29/17 05:11 CBC WITH AUTO DIFF [HEME] Q2D PRO B-TYPE NATRIUR PEPT,BNPPRO [CHEM] Q2D 07/29/17 09:08 BASIC METABOLIC PANEL,BMP [CHEM] Q2D 07/31/17 05:11 CBC WITH AUTO DIFF [HEME] Q2D PRO B-TYPE NATRIUR PEPT,BNPPRO [CHEM] Q2D 07/31/17 09:08 BASIC METABOLIC PANEL,BMP [CHEM] Q2D 08/02/17 05:11 CBC WITH AUTO DIFF [HEME] Q2D PRO B-TYPE NATRIUR PEPT,BNPPRO [CHEM] Q2D 08/02/17 09:08 BASIC METABOLIC PANEL,BMP [CHEM] Q2D
--- NOTE | 2017-07-23 10:41 | PCM.DCSUM1 ---
Discharge Summary - Hospital Course Free Text/Narrative:: Patient is a 81-year-old who was admitted to the hospital with chief complaint of generalized weakness congestive heart failure. Controlled diabetes with chronic renal failure patient was admitted and during admission had an emesis which was Hemoccult positive his hemoglobin went down to 8 patient was transfused 2 his generalized weakness improve but developed ascites at this time his creatinine had continue going up to the point where is now because of his progressive worsening I will transfer him to [facility] Dr. Gee - Discharge Data Discharge Date: 07/23/17 Discharge Disposition: DC/Tfer to Acute Hospital 02 Condition: Poor - Discharge Diagnosis/Problem(s) (1) Abdominal pain SNOMED Code(s): 96774709 ICD Code: R10.9 - UNSPECIFIED ABDOMINAL PAIN Status: Acute Priority: High Current Visit: No Onset Date: 05/10/15 Problem Details: As above Qualifiers: Abdominal location: left upper quadrant Qualified Code(s): R10.12 - Left upper quadrant pain (2) Diabetes type 2, uncontrolled SNOMED Code(s): 18070118 ICD Code: E11.65 - TYPE 2 DIABETES MELLITUS WITH HYPERGLYCEMIA Status: Acute Current Visit: No Qualifiers: Diabetes mellitus complication status: with kidney complications Diabetes mellitus complication detail: with chronic kidney disease Diabetes mellitus senior care insulin use: with certified professional ergonomist use Chronic kidney disease stage: stage 4 (severe) Qualified Code(s): E11.22 - Type 2 diabetes mellitus with diabetic chronic kidney disease; E11.65 - Type 2 diabetes mellitus with hyperglycemia; N18.4 - Chronic kidney disease, stage 4 (severe); 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 for further treatment if indicated Qualifiers: Diabetes mellitus type: type 2 Qualified Code(s): E11.21 - Type 2 diabetes mellitus with diabetic nephropathy (4) Generalized weakness SNOMED Code(s): 31463729 ICD Code: R53.1 - WEAKNESS Status: Acute Priority: High Current Visit: No Problem Details: Gastroscopy negative from yesterday. Abdominal X ray positive for air fluid levels. Question ileus. Will continue to monitor. Patient working with PT/OT - will continue this as a swingbed patient. - Patient Summary/Data Consults: Consultations 07/22/17 10:00 Consult to Case Management [CONS] Routine Consult to Occupational Therapy [OT Evaluation and Treatment] [CONS] Routine Consult to Physical Therapy [PT Evaluation and Treatment] [CONS] Routine - Discharge Plan Home Medications: Home Meds Allopurinol [Zyloprim] 200 mg PO DAILY 04/25/15 [History] Aspirin [Halfprin] 81 mg PO DAILY 04/25/15 [History] Folic Acid 1 mg PO DAILY 04/25/15 [History] Torsemide 20 mg PO DAILY 04/25/15 [History] Levothyroxine 75 mcg PO ACBREAKFAST #30 tablet 06/11/15 [Rx] Insulin Detemir [Levemir] 20 unit SUBCUT DAILY 10/16/15 [History] Cholecalciferol (Vitamin D3) [Vitamin D3] 2,000 unit PO DAILY 01/25/17 [History] Insulin Aspart [Novolog Flexpen] 10 units SUBCUT DAILY 01/25/17 [History] Metoprolol Succinate [Toprol XL] 50 mg PO DAILY 01/25/17 [History] Nitroglycerin [Nitrostat] 0.4 mg SL ASDIRECTED PRN 01/25/17 [History] Ticagrelor [Brilinta] 90 mg PO BID 01/25/17 [History] Pantoprazole [ProTONIX] 40 mg PO ACBREAKFAST 02/15/17 [History] Ferrous Sulfate 325 mg PO DAILY 07/18/17 [History] rOPINIRole HCl [Requip] 0.25 mg PO DAILY 07/18/17 [History] - General Info Date of Service: 07/23/17 Admission Dx/Problem (Free Text: weakness Renal failure acute on chronic Congestive heart failure Ascites Patient had 1 emesis which was positive for occult blood hemoglobin was down to 8 with generalized weakness as symptoms and we proceeded to transfuse him 2 units immobile and went up to 10 generalized weakness improved Functional Status: Reports: Pain Controlled - Review of Systems General: Reports: No Symptoms HEENT: Reports: No Symptoms Pulmonary: Reports: Shortness of Breath Cardiovascular: Reports: No Symptoms Gastrointestinal: Reports: No Symptoms Genitourinary: Reports: Incontinence Musculoskeletal: Reports: Neck Pain Skin: Reports: No Symptoms Neurological: Reports: No Symptoms Psychiatric: Reports: No Symptoms - Patient Data Vitals - Most Recent: Last Vital Signs Temp 98.3 F 07/22/17 20:00 Pulse 60 07/23/17 08:00 Resp 14 07/23/17 08:00 BP 109/51 L 07/23/17 09:29 Pulse Ox 99 07/23/17 08:00 Weight - Most Recent: 220 lb 8 oz I&O - Last 24 hours: Intake & Output 07/22/17 07/23/17 07/23/17 22:59 06:59 14:59 Intake Total 50 50 600 Output Total 750 225 Balance -700 -175 600 Lab Results - Last 24 hrs: Laboratory Results - last 24 hr 07/22/17 07/22/17 07/23/17 Range/Units 11:40 17:01 07:36 WBC (4.0-10.2) K/uL RBC (4.33-5.41) M/uL Hgb (13.1-16.8) g/dL Hct (39.0-49.0) % MCV (84.0-98.0) fL MCH (28.2-33.3) pg MCHC (31.7-36.0) g/dL RDW (11.2-14.1) % Plt Count (150-350) K/uL Neut % (Auto) (45.0-80.0) % Lymph % (Auto) (10.0-50.0) % [place] % (Auto) (2.0-14.0) % Eos % (Auto) (0.0-5.0) % Baso % (Auto) (0.0-2.0) % Neut # (Auto) (1.40-7.00) K/uL Lymph # (Auto) (0.50-3.50) K/uL [place] # (Auto) (0.00-1.00) K/uL Eos # (Auto) (0.00-0.50) K/uL Baso # (Auto) (0.00-0.20) K/uL Sodium (136-145) mmol/L Potassium (3.5-5.1) mmol/L Chloride (98-107) mmol/L Carbon Dioxide (21.0-32.0) mmol/L BUN (7-18) mg/dL Creatinine (0.51-1.17) mg/dL Est Cr Clr Drug Dosing mL/min Estimated GFR (MDRD) mL/min Glucose (74-106) mg/dL POC Glucose 118 H 129 H 76 (65-110) mg/dl Calcium (8.5-10.1) mg/dL NT-Pro-B Natriuret Pep (0-125) pg/mL 07/23/17 07/23/17 07/23/17 Range/Units 07:45 07:45 07:45 WBC 24.1 H (4.0-10.2) K/uL RBC 3.37 L (4.33-5.41) M/uL Hgb 10.1 L (13.1-16.8) g/dL Hct 30.4 L (39.0-49.0) % MCV 90.2 (84.0-98.0) fL MCH 30.0 (28.2-33.3) pg MCHC 33.2 (31.7-36.0) g/dL RDW 17.3 H (11.2-14.1) % Plt Count 183 (150-350) K/uL Neut % (Auto) 82.1 H (45.0-80.0) % Lymph % (Auto) 5.8 L (10.0-50.0) % [place] % (Auto) 8.0 (2.0-14.0) % Eos % (Auto) 3.8 (0.0-5.0) % Baso % (Auto) 0.3 (0.0-2.0) % Neut # (Auto) 19.75 H (1.40-7.00) K/uL Lymph # (Auto) 1.39 (0.50-3.50) K/uL [place] # (Auto) 1.93 H (0.00-1.00) K/uL Eos # (Auto) 0.92 H (0.00-0.50) K/uL Baso # (Auto) 0.07 (0.00-0.20) K/uL Sodium 138 (136-145) mmol/L Potassium 4.0 (3.5-5.1) mmol/L Chloride 105 (98-107) mmol/L Carbon Dioxide 17.7 L (21.0-32.0) mmol/L BUN 80 H (7-18) mg/dL Creatinine 4.32 H* (0.51-1.17) mg/dL Est Cr Clr Drug Dosing 15.24 mL/min Estimated GFR (MDRD) 13 mL/min Glucose 96 (74-106) mg/dL POC Glucose (65-110) mg/dl Calcium 8.6 (8.5-10.1) mg/dL NT-Pro-B Natriuret Pep 62046 H (0-125) pg/mL Med Orders - Current: Current Medications Acetaminophen (Tylenol) 650 mg PO Q4H PRN PRN Reason: Pain Acetaminophen/Codeine Phosphate (Tylenol With Codeine No.3 300mg/30mg) 1 tab PO Q6H PRN PRN Reason: Pain Last Admin: 07/23/17 08:09 Dose: 1 tab Aspirin (Halfprin) 81 mg PO DAILY [facility] Last Admin: 07/23/17 08:08 Dose: 81 mg Cholecalciferol (Vitamin D3) 2,000 units PO DAILY [facility] Last Admin: 07/23/17 08:09 Dose: 2,000 units Ferrous Sulfate (Ferrous Sulfate) 325 mg PO DAILY [facility] Last Admin: 07/23/17 08:09 Dose: 325 mg Folic Acid (Folic Acid) 1 mg PO DAILY [facility] Last Admin: 07/23/17 08:09 Dose: 1 mg Furosemide (Lasix) 20 mg IVPUSH DAILY [facility] Last Admin: 07/23/17 08:08 Dose: 20 mg Influenza Virus Vaccine (Fluzone High-Dose ) 180 mcg IM .ONCE ONE Stop: 07/22/17 10:01 Insulin Aspart (Novolog) 0 unit SUBCUT TIDAC [facility] PRN Reason: Protocol Last Admin: 07/23/17 09:29 Dose: Not Given Insulin Detemir (Levemir) 20 unit SUBCUT DAILY [facility] Last Admin: 07/23/17 08:55 Dose: 20 units Levothyroxine Sodium (Levothyroxine) 75 mcg PO ACBREAKFAST [facility] Last Admin: 07/23/17 08:08 Dose: 75 mcg Lidocaine (Lidoderm 5%) 700 mg TOP DAILY [facility] Last Admin: 07/23/17 08:07 Dose: 700 mg Magnesium Hydroxide (Milk Of Magnesia) 30 ml PO DAILY PRN PRN Reason: Constipation Methyl Salicylate (Icy Hot Cream) 1 gm TOP ASDIRECTED PRN PRN Reason: Pain Last Admin: 07/23/17 08:08 Dose: 1 applic Metoprolol Succinate (Toprol Xl) 50 mg PO DAILY [facility] Last Admin: 07/23/17 09:29 Dose: Not Given Miscellaneous Information (Remove Patch) 1 ea TRDERM BEDTIME [facility] Last Admin: 07/22/17 21:53 Dose: 1 ea Nitroglycerin (Nitrostat) 0.4 mg SL ASDIRECTED PRN PRN Reason: Chest Pain Nystatin (Mycostatin) 5 ml PO QID [facility] Stop: 08/01/17 12:01 Last Admin: 07/23/17 08:08 Dose: 5 ml Ondansetron HCl (Zofran Odt) 4 mg PO Q6H PRN PRN Reason: Nausea/Vomiting Pantoprazole Sodium (Protonix) 40 mg PO ACBREAKFAST [facility] Last Admin: 07/23/17 08:09 Dose: 40 mg Ropinirole HCl (Requip) 0.25 mg PO DAILY [facility] Last Admin: 07/23/17 08:08 Dose: 0.25 mg Sodium Chloride (Saline Flush) 10 ml FLUSH ASDIRECTED PRN PRN Reason: IV Use Last Admin: 07/22/17 11:39 Dose: 10 ml Sodium Chloride (Saline Flush) 10 ml FLUSH Q12HR [facility] Last Admin: 07/23/17 08:10 Dose: 10 ml Ticagrelor (Brilinta) 90 mg PO BID [facility] Last Admin: 07/23/17 08:08 Dose: 90 mg Torsemide (Demadex) 20 mg PO DAILY [facility] Last Admin: 07/23/17 08:08 Dose: 20 mg - Exam Quality Assessment: Reports: Urine Catheter General: Reports: Alert, Oriented HEENT: Reports: Pupils Equal, Pupils Reactive, EOMI, Mucous Membr. Moist/[place] Neck: Reports: Supple Lungs: Reports: Rales (In basis) Cardiovascular: Reports: Regular Rate, Regular Rhythm, Murmurs (36 systolic murmur) GI/Abdominal Exam: Distended, Other (Ascites on ultrasound) (Male) Exam: Other (Anne catheter secondary to urinary retention) Rectal (Males) Exam: Deferred Back Exam: Reports: Muscle Spasm, Paraspinal Tenderness (Cervical area tenderness with ecchymosis secondary to fall), Other Extremities: Normal Inspection, Normal Range of Motion, Non-Tender, No Pedal Edema, Normal Capillary Refill Skin: Reports: Warm, Dry, Intact Neurological: Reports: No New Focal Deficit Psy/Mental Status: Reports: Alert, Normal Affect, Normal Mood Physical Findings Comments:: At this time patient evaluated overall worsening of condition discussed with Dr. Gee will transfer to [facility] for further care Discharge Operative/Procedures - Procedures Performed LP Indication: CSF analysis Arterial Line Indication: hemodynamic monitoring Chest Tube Indication: pneumothorax Thoracentesis Indication: pleural effusion Paracentesis Indication: ascites *Q Meaningful Use (DIS) - VTE *Q VTE Criteria *Q: - Stroke *Q Stroke Criteria *Q: - AMI *Q AMI Criteria *Q:
[2017-07-23 12:52] VITALS: BP 116/55
== END 2017-07-23 12:15 | DRG 948 ==
LOC: LL.MS 10:25
PROVIDERS: ADMIT Family Medicine; ATTEND Family Medicine
PROC: 0T9B70Z Drainage of Bladder with Drainage Device, Via Natural or Artificial Opening (ICD-10-PCS; principal; 2017-07-22)
PROC: 30233N1 Transfusion of Nonautologous Red Blood Cells into Peripheral Vein, Percutaneous Approach (ICD-10-PCS; 2017-07-23)
DX: R53.1 Weakness (principal); N18.4 Chronic kidney disease, stage 4 (severe); R18.8 Other ascites; I13.0 Hypertensive heart and chronic kidney disease with heart failure and stage 1 through stage 4 chronic kidney disease, or unspecified chronic kidney disease; K92.0 Hematemesis; N17.9 Acute kidney failure, unspecified; N40.1 Benign prostatic hyperplasia with lower urinary tract symptoms; N39.490 Overflow incontinence; R33.8 Other retention of urine; I25.10 Atherosclerotic heart disease of native coronary artery without angina pectoris; I50.9 Heart failure, unspecified; E11.22 Type 2 diabetes mellitus with diabetic chronic kidney disease; E11.65 Type 2 diabetes mellitus with hyperglycemia; Z79.4 Long term (current) use of insulin; E11.21 Type 2 diabetes mellitus with diabetic nephropathy; R10.9 Unspecified abdominal pain; D50.0 Iron deficiency anemia secondary to blood loss (chronic); M54.2 Cervicalgia; M47.892 Other spondylosis, cervical region; Z91.81 History of falling; Z79.82 Long term (current) use of aspirin; Z79.899 Other long term (current) drug therapy
CPT/HCPCS: 36415; 51702; 76770; 80048; 82570; 82962; 83880; 85025; A9270-GY; J1940; J7050